=== PATIENT | female | born 1945 | race Caucasian/White ===

== ENCOUNTER 2018-06-02 17:31 | Emergency (ER) | END 2018-06-02 23:38 | disposition home or self-care (01) ==

== ENCOUNTER 2018-10-21 16:58 | Inpatient (IN) | payer MEDICARE, OTHER ==
[~2018-10-21] VITALS: Ht 165.1 cm; Wt 83.9 kg
[~2018-10-21 16:58] MED LIST: ACET-141 PO; BENA20TA4 PO; CHOL100062 PO; CYAN500T46 PO; DOCU-144 PO; LEVO25TA6 PO; LOPE-123 PO; MENT113O5 TP; METO-319 PO; NITR-58 PO; OMEP20CA16 PO; ONDA4TAB95 PO; ROSU10TA55 PO; SERT-165 PO; WARF5TAB PO
[2018-10-21] MEDS ORDERED: SOD CHLORIDE 0.9% 1,000 ML IV STA (17:12)
[2018-10-21] MEDS ORDERED: morphine 4 MG/ML VIAL IV STA (17:19)
[2018-10-21] MEDS ORDERED: ONDANSETRON 4 MG INJ IV STA (17:19)
[2018-10-21] MEDS ORDERED: WARF1TAB PO (18:02)
[2018-10-21] MEDS ORDERED: BENZ1LOZ52 MM (18:03)
[2018-10-21] MEDS ORDERED: CHOL200056 PO (18:04)
[2018-10-21] MEDS ORDERED: BENZ28CR TP (18:05)
--- NOTE | 2018-10-21 19:37 | ERD ---
ER Documentation Chief Complaint Chief Complaint GENITAL PAIN HPI 73-year-old female history of expressive a aphasia secondary to prior stroke. She presents with her daughter who provides the history. Patient has had several days of generalized abdominal discomfort that is nonspecific without associated nausea or vomiting. Slight associated looser stools. The patient also exhibits a rash around the genital area. She is also describing dental pain to the left posterior molar for several weeks if not longer. No fevers or chills have been noted. No chest pain, pleuritic pain or shortness of breath. ROS All systems reviewed and are negative except as per history of present illness. Medications Home Meds Reported Medications Benzocaine/Resorcinol (Anti-Itch Cream) 28 Gm Cream.gm., 28 GM TP DAILY 10/21/18 Cholecalciferol (Vitamin D3) (Vitamin D-3) 2,000 Unit Tablet, 2000 UNIT PO DAILY, TAB 10/21/18 Benzocaine/Menthol* (Cepacol* Sore Throat Lozenges) 1 Each Lozenge, 1 EACH MM TID PRN for SORE THROAT, LOZENGE 10/21/18 Warfarin Sodium* (Coumadin*) 1 Mg Tablet, 1 MG PO DAILY, TAB 10/21/18 Rosuvastatin Calcium* (Crestor*) 10 Mg Tablet, 10 MG PO QHS, #30 TAB 06/02/18 Omeprazole* (Omeprazole*) 20 Mg Capsule.dr, 20 MG PO AC BREAKFAST, #30 CAP 06/02/18 Metoprolol Succinate* (Toprol XL*) 50 Mg Tab.er.24h, 50 MG PO DAILY, #30 TAB 06/02/18 Levothyroxine Sodium* (Levothyroxine Sodium*) 25 Mcg Tablet, 25 MCG PO BEFORE BREAKFAST, #30 TAB 06/02/18 Benazepril Hcl* (Benazepril Hcl*) 20 Mg Tablet, 20 MG PO DAILY, #30 TAB 06/02/18 Loperamide Hcl* (Loperamide Hcl*) 2 Mg Cap, 2 MG PO DAILY PRN for DIARRHEA, CAP 06/02/18 Cyanocobalamin* (Vitamin B12*) 500 Mcg Tab, 1000 MCG PO DAILY, TAB 06/02/18 Sertraline Hcl* (Sertraline Hcl*) 100 Mg Tablet, 100 MG PO DAILY, #30 TAB 06/02/18 Acetaminophen* (Acetaminophen*) 500 MG Extra Strength Tablet, 500 MG PO Q8 PRN for PAIN AND OR ELEVATED TEMP, TAB 06/02/18 Ondansetron Hcl* (Ondansetron Hcl*) 4 Mg Tablet, 4 MG PO Q6H PRN for NAUSEA AND/OR VOMITING, TAB 06/02/18 Docusate Sodium* (Colace*) 100 Mg Capsule, 100 MG PO DAILY PRN for CONSTIPATION, #30 CAP 06/02/18 Menthol/Zinc Oxide (RISAMINE OINTMENT) 113 Gm Oint...g., 1 APPLIC TP DAILY 06/02/18 Discontinued Reported Medications Cholecalciferol* (Vitamin D3*) 1,000 Unit Tablet, 1000 UNIT PO DAILY, TAB 06/02/18 Warfarin Sodium* (Coumadin*) 5 Mg Tablet, 5 MG PO DAILY, TAB 06/02/18 Discontinued Scripts Nitrofurantoin Monohyd Macrocr* (Macrobid*) 100 Mg Capsr, 100 MG PO BID for 5 Days, CAP Prov:IRAIDAMALACHI DO 06/02/18 Allergies Allergies: Coded Allergies: No Known Allergy (Unverified , 10/21/18) PMhx/Soc History of Surgery: No Anesthesia Reaction: No Hx Neurological Disorder: Yes (CVA WITH RT SIDED DEFICIT) Hx Respiratory Disorders: No Hx Cardiac Disorders: Yes (HTN, A-FIB) Hx Psychiatric Problems: No Hx Miscellaneous Medical Probl: No Hx Alcohol Use: No Hx Substance Use: No Hx Tobacco Use: No Smoking Status: Never smoker FmHx Family History: No diabetes Physical Exam Vitals Vital Signs Date Temp Pulse Resp B/P (MAP) Pulse Ox O2 O2 Flow FiO2 Time Delivery Rate 10/21/18 97.8 79 18 121/63 99 17:54 (82) Physical Exam General: Well developed, well nourished, no acute distress Head: Normocephalic, atraumatic. Eyes: Pupils equally reactive, EOM intact ENT: Missing dentition bilaterally, a Is noted to the left posterior molar, inferior. There is small apical tenderness without evidence of focal abscess. Neck: Supple, no lymphadenopathy Respiratory: Lungs clear bilaterally, no distress Cardiovascular: RRR, no murmurs, rubs, or gallops Abdominal: Soft, non-tender, non-distended, no peritoneal signs : A rash that is erythematous with satellite lesions is noted in the skin spaces, grain grader exam MSK: No edema, no unilateral swelling Neurologic: Alert and oriented, no new deficits Skin: as above Psych: Normal mood Result Diagram: 10/21/18 1725 10/21/18 1725 Results 24 hrs Laboratory Tests Test 10/21/18 17:25 10/21/18 19:18 White Blood Count 10.3 10^3/ul Red Blood Count 5.02 10^6/ul Hemoglobin 14.7 g/dl Hematocrit 45.9 % Mean Corpuscular Volume 91.4 fl Mean Corpuscular Hemoglobin 29.3 pg Mean Corpuscular Hemoglobin Concent 32.0 g/dl Red Cell Distribution Width 12.8 % Platelet Count 241 10^3/UL Mean Platelet Volume 9.7 fl Immature Granulocytes % 0.200 % Neutrophils % 60.1 % Lymphocytes % 32.0 % Monocytes % 5.7 % Eosinophils % 1.7 % Basophils % 0.3 % Nucleated Red Blood Cells % 0.0 /100WBC Immature Granulocytes # 0.020 10^3/ul Neutrophils # 6.2 10^3/ul Lymphocytes # 3.3 10^3/ul Monocytes # 0.6 10^3/ul Eosinophils # 0.2 10^3/ul Basophils # 0.0 10^3/ul Nucleated Red Blood Cells # 0.0 10^3/ul Prothrombin Time 13.4 Sec Prothrombin Time Ratio 1.0 INR International Normalized Ratio 1.01 Activated Partial Thromboplast Time 24.7 Sec Sodium Level 147 mmol/L Potassium Level 3.7 mmol/L Chloride Level 105 mmol/L Carbon Dioxide Level 31 mmol/L Anion Gap 11 Blood Urea Nitrogen 19 mg/dl Creatinine 0.97 mg/dl Est Glomerular Filtrat Rate mL/min mL/min Glucose Level 96 mg/dl Calcium Level 9.7 mg/dl Total Bilirubin 0.1 mg/dl Direct Bilirubin 0.00 mg/dl Indirect Bilirubin 0.1 mg/dl Aspartate Amino Transf (AST/SGOT) 45 IU/L Alanine Aminotransferase (ALT/SGPT) 22 IU/L Alkaline Phosphatase 83 IU/L Total Protein 8.0 g/dl Albumin 3.9 g/dl Globulin 4.10 g/dl Albumin/Globulin Ratio 0.95 Lipase 111 U/L Urine Color YELLOW Urine Clarity CLOUDY Urine pH 6.0 Urine Specific [place] 1.019 Urine Ketones NEGATIVE mg/dL Urine Nitrite POSITIVE mg/dL Urine Bilirubin NEGATIVE mg/dL Urine Urobilinogen NEGATIVE mg/dL Urine Leukocyte Esterase 3+ Flip/ul Urine Microscopic RBC > 182 /HPF Urine Microscopic WBC > 182 /HPF Urine Bacteria MODERATE /HPF Urine Mucus FEW /HPF Urine Hemoglobin 2+ mg/dL Urine Glucose NEGATIVE mg/dL Urine Total Protein 1+ mg/dl Current Medications Medications Dose Sig/Leonel Start Time Status Last (Trade) Ordered Route PRN Stop Time Admin Dose Reason Admin Sodium 1,000 ml @ Q1H STAT 10/21/18 DC 10/21/18 Chloride 1,000 mls/hr IV 17:12 10/21/18 17:41 18:11 Morphine 4 mg ONCE STAT 10/21/18 DC 10/21/18 Sulfate IV 17:19 10/21/18 17:42 (morphine) 17:21 Ondansetron 4 mg ONCE STAT 10/21/18 DC 10/21/18 HCl (Zofran IV 17:19 10/21/18 17:41 Inj) 17:21 Ceftriaxone 50 ml @ ONCE ONCE 10/21/18 Sodium 100 mls/hr IVPB 20:00 10/21/18 20:29 Ondansetron 4 mg BRIDGE ORDER 10/21/18 HCl (Zofran PRN IV 20:30 Inj) NAUSEA AND/OR 10/22/18 20:29 VOMITING 650 mg ER BRIDGE 10/21/18 Acetaminophen PRN PO MILD 20:30 (Tylenol PAIN(1-3)OR 10/22/18 20:29 Tab) ELEVATED TEMP Procedures/MDM EKG, MONITORS, & DIAGNOSTIC IMAGING: CT a/p: IMPRESSION: There is inflammation of the right renal pelvis and UVJ secondary to multiple stones without hydronephrosis. There are multiple nonobstructing right upper pole renal calculi also present. There is bilateral mild renal atrophy slightly more pronounced on the right side. 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 There is a collapsed appearance of the colon without obstruction or visible focal inflammation. There is diverticulosis without diverticulitis. Atherosclerotic disease is present. Mosaic attenuation of the lower lungs is seen with faint ground-glass which could represent mild edema or pneumonitis. 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 RPTAT: AA LAB INTERPRETATION: * CBC reveals no evidence of infection with a normal white count without shift. Normal hemoglobin * The patient has a normal chemistry profile revealing no evidence of acute renal failure, no evidence of hepatobiliary obstruction * UA c/w UTI MEDICAL DECISION MAKING: The patient presents with nonspecific abdominal pain. Given her age and comorbidities CT imaging of the abdomen and pelvis will be appropriate. The patient additionally has a Saniya rash consistent with intertrigo that will benefit from topical clotrimazole. The patient additionally has a dental apical abscess and dental caries that warrants outpatient dental follow-up. ER COURSE: * The patient was given IV fluids and pain control medication. She remains hemodynamically stable * CT shows evidence of multiple large ureteral stones, no significant hydronephrosis. This could be the etiology of the patient's abdominal pain. She has no evidence of infection. The patient will likely require urologic intervention given the size of the stones but this can possibly be done on an outpatient basis if her pain is well controlled. Urinalysis pending. * Urinalysis shows evidence of UTI. Blood and urine cultures been sent. No evidence of Sirs or sepsis in the ER. Subtraction provided. Urology consulted. CONSULTATION: Dr. Denise, urology DISPOSITION PLAN: Medical surgical admission accepting care team and consultations: I discussed the current laboratory data, diagnostic imaging and emergency care provided. Admitting team: Dr. John Admitting team indication: Insurance directed Departure Diagnosis: Primary Impression: Ureteral stone Additional Impressions: Urinary tract infection Urinary tract infection type: site unspecified Hematuria presence: without hematuria Qualified Codes: N39.0 - Urinary tract infection, site not specified Vulvovaginal candidiasis Dental caries Condition: Stable BRITTANY RODRIGUEZ MD Oct 21, 2018 19:37
[2018-10-21] MEDS ORDERED: CEFTRIAXONE 1 GM/50 ML (PMX) 50 ML IVPB ONE (20:00)
[2018-10-21] MEDS ORDERED: ACETAMINOPHEN 325 MG TAB PO PRN ×2 (20:30→23:00)
[2018-10-21] MEDS ORDERED: ONDANSETRON 4 MG INJ IV PRN ×2 (20:30→23:00)
[2018-10-21] MEDS ORDERED: LOPERAMIDE 2 MG CAP PO PRN (23:00)
[2018-10-21] MEDS ORDERED: CEPASTAT LOZENGE MM PRN (23:00)
[2018-10-21] MEDS ORDERED: NACL 0.9% 3 ML SYG IV SCH (23:00)
[2018-10-21] MEDS ORDERED: DOCUSATE SODIUM 100 MG CAP PO PRN ×2 (23:00)
[2018-10-21] MEDS ORDERED: morphine 2 MG INJ IV PRN (23:00)
[2018-10-22 00:52] VITALS: BP 127/61; PULSE 69; RESP 17
[2018-10-22 01:08] VITALS: BMI 28.2
[2018-10-22] MEDS: SOD CHLORIDE 0.9% 1,000 ML IV SCH ×2 (01:42→13:21)
[2018-10-22 01:58] VITALS: BP 132/55; PULSE 77; RESP 17
[2018-10-22] MEDS ORDERED: PENDING SANTYL ORDER FOR WOUND CARE XX PRN (02:30)
[2018-10-22] MEDS: PANTOPRAZOLE (EC) 40 MG TAB PO SCH (06:41)
[2018-10-22] MEDS: LEVOTHYROXINE 25 MCG TAB PO SCH (06:41)
[2018-10-22] MEDS ORDERED: morphine SULFATE/PF (2 MG/2 ML) SYG IV PRN (06:57)
[2018-10-22 07:40] VITALS: BP 130/61; PULSE 75; RESP 18
[2018-10-22] MEDS: SERTRALINE 100 MG TAB PO SCH (08:44)
[2018-10-22] MEDS: METOPROLOL (XL) 50 MG TAB PO SCH (08:44)
[2018-10-22] MEDS: BENAZEPRIL 20 MG TAB PO SCH (08:44)
[2018-10-22] MEDS: CYANOCOBALAMIN 500 MCG TAB PO SCH (08:45)
[2018-10-22] MEDS: ENOXAPARIN 40 MG/0.4 ML SYG SC SCH (08:46)
--- NOTE | 2018-10-22 08:57 | CONS ---
Date/Time of Note Date/Time of Note DATE: 10/22/18 TIME: 08:29 Assessment/Plan Assessment/Plan Assessment/Plan 73-year-old female has a known history of stroke on 08/23/2011 resulting in right hemiplegia and expressive aphasia. She lives in an assisted living facility. He was brought to the emergency room because of right flank pain. She underwent a CT scan of the abdomen and pelvis and that showed: Urinary: There are is a 6 mm stone at the right renal pelvis and 7 mm stone directly distal to this at the UPJ and this results in wall thickening inflammation of the wall of the right renal pelvis and UPJ without hydronephrosis. There are several nonobstructing right upper pole renal calculi and the largest of these measures up to 9 mm in length. There is bilateral mild renal atrophy slightly more pronounced on the right side. No left-sided renal or ureteral stones are present. 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 A urological consultation was therefore requested. Since the patient has expressive aphasia from her stroke I called her daughter Kiana and she was very helpful in the history. The patient has been wheelchair-bound since she cannot walk or stand on her own. As she has been incontinent and managed with diapers. She can feed herself. She does have right hemiplegia. On the physical examination she has tenderness in the right flank area and the right upper quadrant area. Impression: Multiple right renal stones ranging from 6-9 mm in size. There is no hydronephrosis. She also may be infected and a urine culture has been sent. Plan: I will do a cystoscopy and insert a right ureteral JJ stent most likely tomorrow. And then at a later date do ureteroscopy and laser lithotripsy to the stone in the renal pelvis and upper ureter. I did discuss the treatment plan with her daughter and she is agreeable to proceed. I did discuss with her the benefits the risks and the possible complications as well especially that this patient has had a stroke and is on anticoagulation and the fact that she has multiple right renal stones. Result Diagram: 10/22/18 0549 10/22/18 0549 Results 24hrs Laboratory Tests Test 10/21/18 17:25 10/21/18 19:18 10/22/18 05:49 White Blood Count 10.3 8.3 Red Blood Count 5.02 4.40 Hemoglobin 14.7 12.8 Hematocrit 45.9 41.5 Mean Corpuscular Volume 91.4 94.3 Mean Corpuscular Hemoglobin 29.3 29.1 Mean Corpuscular Hemoglobin Concent 32.0 30.8 L Red Cell Distribution Width 12.8 13.2 Platelet Count 241 208 Mean Platelet Volume 9.7 10.1 Immature Granulocytes % 0.200 0.400 Neutrophils % 60.1 57.8 Lymphocytes % 32.0 31.5 Monocytes % 5.7 7.7 Eosinophils % 1.7 2.2 Basophils % 0.3 0.4 Nucleated Red Blood Cells % 0.0 0.0 Immature Granulocytes # 0.020 0.030 Neutrophils # 6.2 4.8 Lymphocytes # 3.3 H 2.6 Monocytes # 0.6 0.6 Eosinophils # 0.2 0.2 Basophils # 0.0 0.0 Nucleated Red Blood Cells # 0.0 0.0 Prothrombin Time 13.4 # Prothrombin Time Ratio 1.0 INR International Normalized Ratio 1.01 Activated Partial Thromboplast Time 24.7 Sodium Level 147 H 149 H Potassium Level 3.7 4.1 Chloride Level 105 113 H Carbon Dioxide Level 31 31 Anion Gap 11 5 Blood Urea Nitrogen 19 18 Creatinine 0.97 1.01 H Est Glomerular Filtrat Rate mL/min Glucose Level 96 88 Calcium Level 9.7 9.3 Total Bilirubin 0.1 L 0.0 L Direct Bilirubin 0.00 0.00 Indirect Bilirubin 0.1 0.0 Aspartate Amino Transf (AST/SGOT) 45 42 Alanine Aminotransferase (ALT/SGPT) 22 29 Alkaline Phosphatase 83 72 Total Protein 8.0 6.6 # Albumin 3.9 3.4 Globulin 4.10 H 3.20 Albumin/Globulin Ratio 0.95 1.06 Lipase 111 Urine Color YELLOW Urine Clarity CLOUDY A Urine pH 6.0 Urine Specific [place] 1.019 Urine Ketones NEGATIVE Urine Nitrite POSITIVE A Urine Bilirubin NEGATIVE Urine Urobilinogen NEGATIVE Urine Leukocyte Esterase 3+ H Urine Microscopic RBC > 182 H Urine Microscopic WBC > 182 H Urine Bacteria MODERATE Urine Mucus FEW A Urine Hemoglobin 2+ H Urine Glucose NEGATIVE Urine Total Protein 1+ H Hemoglobin A1c 5.3 Triglycerides Level 125 Cholesterol Level 112 LDL Cholesterol, Calculated 58 HDL Cholesterol 29 L Cholesterol/HDL Ratio 3.8 Thyroid Stimulating Hormone (TSH) Pending Consultation Date/Type/Reason Admit Date/Time Oct 21, 2018 at 20:20 Date of Consultation: Oct 22, 2018 Type of Consult Urology Reason for Consultation Right renal stones Requesting Provider: GRISEL SY MD Hx of Present Illness 73-year-old female has a known history of stroke on 08/23/2011 resulting in right hemiplegia and expressive aphasia. She lives in an assisted living facility. He was brought to the emergency room because of right flank pain. She underwent a CT scan of the abdomen and pelvis and that showed: Urinary: There are is a 6 mm stone at the right renal pelvis and 7 mm stone directly distal to this at the UPJ and this results in wall thickening inflamma tion of the wall of the right renal pelvis and UPJ without hydronephrosis. There are several nonobstructing right upper pole renal calculi and the largest of these measures up to 9 mm in length. There is bilateral mild renal atrophy slightly more pronounced on the right side. No left-sided renal or ureteral stones are present. 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 A urological consultation was therefore requested. Since the patient has expressive aphasia from her stroke I called her daughter Kiana and she was very helpful in the history. The patient has been wheelchair-bound since she cannot walk or stand on her own. As she has been incontinent and managed with diapers. She can feed herself. She does have right hemiplegia. Subjective hx not possible: other (Expressive aphasia) Eyes: no complaints ENT: no complaints Respiratory: no complaints Cardiovascular: other (History of atrial fibrillation has been on Coumadin) Gastrointestinal: no complaints Genitourinary: flank pain (Right side) Musculoskeletal: no complaints Skin: no complaints Neurologic: focal-weakness (Right hemiplegia) Endocrine: no complaints Lymphatic: no complaints Past Medical History Medical History: high cholesterol, hypertension, hypothyroid, urinary tract infection Medications Current Medications Sodium Chloride 1,000 ml @ 70 mls/hr [id number] IV Last administered on 10/22/18at 01:42; Admin Dose 70 MLS/HR; Start 10/21/18 at 22:41 IV Flush (NS 3 ml) 3 ml PER PROTOCOL IV ; Start 10/21/18 at 23:00 Ondansetron HCl (Zofran Inj) 4 mg Q6H PRN IV NAUSEA AND/OR VOMITING; Start 10/21/18 at 23:00 Acetaminophen (Tylenol Tab) 650 mg Q6H PRN PO PAIN LEVEL 1-3 OR FEVER; Start 10/21/18 at 23:00 Acetaminophen/ Hydrocodone Bitart ([place] (5/325)) 1 tab Q6H PRN PO MODERATE PAIN LEVEL 4-6; Start 10/21/18 at 23:00 Docusate Sodium (Colace) 100 mg Q12H PRN PO CONSTIPATION; Start 10/21/18 at 23:00 Pantoprazole (Protonix Tab) 40 mg DAILY@06 PO Last administered on 10/22/18at 06:41; Admin Dose 40 MG; Start 10/22/18 at 06:00 Enoxaparin Sodium (Lovenox) 40 mg DAILY SC ; Start 10/22/18 at 09:00 Ceftriaxone Sodium 50 ml @ 100 mls/hr Q24H IVPB ; Start 10/22/18 at 20:00 Benazepril HCl (Lotensin) 20 mg DAILY PO ; Start 10/22/18 at 09:00 Phenol (Cepastat Lozenge) 1 lozenge TID PRN MM SORE THROAT; Start 10/21/18 at 23:00 Cyanocobalamin (Vitamin B12) 1,000 mcg DAILY PO ; Start 10/22/18 at 09:00 Levothyroxine Sodium (Synthroid) 25 mcg BEFORE BREAKFAST PO Last administered on 10/22/18at 06:41; Admin Dose 25 MCG; Start 10/22/18 at 07:00 Loperamide HCl (Imodium Cap) 2 mg DAILY PRN PO DIARRHEA; Start 10/21/18 at 23:00 Metoprolol Succinate (Toprol Xl) 50 mg DAILY PO ; Start 10/22/18 at 09:00 Sertraline HCl (Zoloft) 100 mg DAILY PO ; Start 10/22/18 at 09:00 Miscellaneous Information (Pending [facility] Order For Wound Care) This patient renteria... PRN PRN XX NOTE; Start 10/22/18 at 02:30 Morphine Sulfate (morphine SULFATE (PF)) 2 mg Q4H PRN IV SEVERE PAIN LEVEL 7- 10; Start 10/22/18 at 06:57 Allergies: Coded Allergies: No Known Allergy (Unverified , 10/21/18) Past Surgical History Past Surgical Hx: other (History of coronary accident about 15 years ago and underwent surgery for neck fusion. History of hysterectomy.) Social History Alcohol Use: none Smoking Status: Never smoker Other Social History She is a 2 para 2 normal deliveries Exam/Review of Systems Vital Signs Vitals Vital Signs Date Temp Pulse Resp B/P (MAP) Pulse Ox O2 O2 Flow FiO2 Time Delivery Rate 10/22/18 98.2 75 18 130/61 92 Room Air 07:40 (84) Intake and Output 10/21/18 10/21/18 10/22/18 1515:00 23:00 07:00 IntakeIntake Total 280 ml BalanceBalance 280 ml Exam Constitutional: alert, other (Expressive aphasia) Psych: no complaints Head: normocephalic Eyes: nl conjunctiva ENMT: nl external ears & nose Neck: supple, non-tender Respiratory: normal air movement; No wheezing Cardiovascular: No jugular venous distention (JVD) Gastrointestinal: soft Genitourinary - Female: CVA tenderness (Right flank. No left flank tenderness. Pelvic exam: No mass and no discharge) Musculoskeletal: other (Right hemiplegia, very stiff right lower extremity) Extremities: other (Right hemiplegia, very stiff right lower extremity); No calf tenderness Neurological: confused (When she has a UTI) Medications Medications Current Medications Sodium Chloride 1,000 ml @ 70 mls/hr [id number] IV Last administered on 10/22/18at 01:42; Admin Dose 70 MLS/HR; Start 10/21/18 at 22:41 IV Flush (NS 3 ml) 3 ml PER PROTOCOL IV ; Start 10/21/18 at 23:00 Ondansetron HCl (Zofran Inj) 4 mg Q6H PRN IV NAUSEA AND/OR VOMITING; Start 10/21/18 at 23:00 Acetaminophen (Tylenol Tab) 650 mg Q6H PRN PO PAIN LEVEL 1-3 OR FEVER; Start 10/21/18 at 23:00 Acetaminophen/ Hydrocodone Bitart ([place] (5/325)) 1 tab Q6H PRN PO MODERATE PAIN LEVEL 4-6; Start 10/21/18 at 23:00 Docusate Sodium (Colace) 100 mg Q12H PRN PO CONSTIPATION; Start 10/21/18 at 23:00 Pantoprazole (Protonix Tab) 40 mg DAILY@06 PO Last administered on 10/22/18at 06:41; Admin Dose 40 MG; Start 10/22/18 at 06:00 Enoxaparin Sodium (Lovenox) 40 mg DAILY SC ; Start 10/22/18 at 09:00 Ceftriaxone Sodium 50 ml @ 100 mls/hr Q24H IVPB ; Start 10/22/18 at 20:00 Benazepril HCl (Lotensin) 20 mg DAILY PO ; Start 10/22/18 at 09:00 Phenol (Cepastat Lozenge) 1 lozenge TID PRN MM SORE THROAT; Start 10/21/18 at 23:00 Cyanocobalamin (Vitamin B12) 1,000 mcg DAILY PO ; Start 10/22/18 at 09:00 Levothyroxine Sodium (Synthroid) 25 mcg BEFORE BREAKFAST PO Last administered on 10/22/18at 06:41; Admin Dose 25 MCG; Start 10/22/18 at 07:00 Loperamide HCl (Imodium Cap) 2 mg DAILY PRN PO DIARRHEA; Start 10/21/18 at 23:00 Metoprolol Succinate (Toprol Xl) 50 mg DAILY PO ; Start 10/22/18 at 09:00 Sertraline HCl (Zoloft) 100 mg DAILY PO ; Start 10/22/18 at 09:00 Miscellaneous Information (Pending [facility] Order For Wound Care) This patient renteria... PRN PRN XX NOTE; Start 10/22/18 at 02:30 Morphine Sulfate (morphine SULFATE (PF)) 2 mg Q4H PRN IV SEVERE PAIN LEVEL 7- 10; Start 10/22/18 at 06:[address] scan of the abdomen and pelvis: There is inflammation of the right renal pelvis and UVJ secondary to multiple stones without hydronephrosis. There are multiple nonobstructing right upper pole renal calculi also present. There is bilateral mild renal atrophy slightly more pronounced on the right side. 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 There is a collapsed appearance of the colon without obstruction or visible focal inflammation. There is diverticulosis without diverticulitis. Atherosclerotic disease is present. Mosaic attenuation of the lower lungs is seen with faint ground-glass which could represent mild edema or pneumonitis. Bilateral L5 pars defects are present KUB showed that the stones in the right kidney are radiopaque. LOPEZ SON MD Oct 22, 2018 08:51
--- NOTE | 2018-10-22 09:40 | HP ---
DATE OF ADMISSION: 10/21/2018 REASON FOR ADMISSION: Urinary tract infection, nephrolithiasis. HISTORY OF PRESENT ILLNESS: Patient is a 73-year-old female with history of cerebrovascula r, right hemiplegia, expressive aphasia due to her stroke who presented to [facility] with her daughter as patient has generalized abdominal discomfort. Also, there is a port, a sligh tly looser stools. Also, she was noted to have a rash around the genital area. The patient was eval uated extensively in the emergency department. CBC was normal and urine revealed evidence of UTI wit h leukocyte esterase +3, and nitrates were positive. CT scan of the abdomen and pelvis was performed which showed there is inflammation of the right renal pelvis and UVJ secondary to multiple stone wit hout hydronephrosis. There are multiple nonobstructing right upper pole renal calculus also present. There is bilateral mild renal atrophy, slightly more pronounced on the right side. 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 There is collapse appearance of the colon without obstruction or visible focal inflammation. There is diverticulosis without diverticulitis. There i s atherosclerotic disease present. There is mosaic attenuation of the lower lung is seen with the ve in graft that which produces a mild edema or pneumonitis, bilateral L5 pars defects are present. Dr. Son, the urologist, was consulted and patient was started on antibiotic therapy with Rocephin. The patient was admitted to the medical/surgical floor for further care. Upon evaluation, the patien t did confirm having some abdominal discomfort. Otherwise, no other complaints. The patient does renteria ve expressive aphasia, so it is difficult to communicate with her. I did speak briefly with her renaldo cadenaer, her name is Kelsey, phone number area code [phone]. The patient is admitted for further c are. PAST MEDICAL HISTORY: Includes CVA. MEDICATIONS: 1. Warfarin 1 mg daily. 2. Benazepril 20 mg daily. 3. Toprol-XL 50 mg daily. 4. Crestor 10 mg at bedtime. 5. Tylenol p.r.n. 6. Sertraline 100 mg daily. 7. as directed. 8. Colace 100 daily p.r.n. 9. Loperamide p.r.n. 10. Omeprazole 20 mg daily. 11. Zofran p.r.n. 12. Synthroid 25 mcg daily. 13. Mental Zinc oxide ointment. 14. Vitamin D3 as directed. 15. Vitamin B12 as directed. PAST MEDICAL HISTORY: As mentioned, CVA, hypertension, dyslipidemia, expressive aphasia, hypothyroid ism. ALLERGIES: NO KNOWN DRUG ALLERGIES. SURGICAL HISTORY: Patient denies. SOCIAL HISTORY: The patient denies tobacco, alcohol or IV drug use, but overall patient is overall a poor historian due to the above stroke. The patient's daughter is Bette and the case briefly discu ssed. PHYSICAL EXAMINATION: VITAL SIGNS: Temperature 98.2, pulse 75, respiration 18, blood pressure 130/61, saturation 92 to 99% on room air. GENERAL: No acute distress. HEENT: Normocephalic, atraumatic. The patient is pale. CARDIOVASCULAR: S1 and S2, appears to be regular. LUNGS: Clear. ABDOMEN: Soft, slightly discomfort, more on the right side. EXTREMITIES: There is no clubbing, cyanosis, or edema. Right-sided weakness is noted mostly in the right upper extremity, which, +1 right lower extremity +2. LABORATORY DATA: White count is 8.3, hemoglobin 12.8, hematocrit 42, platelet count of 208, neutroph ils 58%, %. Chemistry: Sodium is 14.9, potassium 4.1, chloride 13, bicarbonate 31, BUN is 18, creatinine 1.01, glucose of 88. Hemoglobin A1c is 5.3, AST 42, ALT 29, alkaline phosphatase 72, alb umin 3.4, lipase 111. INR was 1.01. Urinalysis positive nitrites, +2 leukocyte esterase. KUB also done showed multiple right renal calculus and a CT scan also radiopaque on x-ray 1.9 cm calc ified lesion over the medial lower pole of the left kidney may represent a rim calcified cyst or aneu rysm of branch of the left renal artery. Continue further evaluation with CT angiogram. The patient 's chest x-ray shows negative for evidence of acute chest process. EKG: I currently do not see one. Will order one. ASSESSMENT AND PLAN: This is a 73-year-old female with history of cerebrovascular, right he miplegia, hypertension, dyslipidemia, hypothyroidism who presented with abdominal pain, was found to have urinary tract infection and right-sided kidney stones. 1. Urinary tract infection. The patient was started on Rocephin. Follow up urine culture result, p robably right-sided stone is the nidus of the infection. We will follow. 2. Right-sided renal stone. Urology was consulted. May need to have a J-stent placement and lithot ripsy in the future. We will discuss with Dr. Son. 3. Cerebrovascular accident. Supportive care, control risk factors. Aspiration precautions. 4. Questionable history of atrial fibrillation as patient has been on Coumadin, but INR is subtherap eutic. We will consult cardiology for further recommendation. May consider switching this to Eliqui s. We will obtain an EKG. May consider echocardiogram. 5. The patient to be placed on deep vein thrombosis prophylaxis and gastrointestinal prophylaxis. 6. Hypothyroidism. Continue Synthroid. Follow up TSH levels. 7. Depression. The patient is on Zoloft. 8. Continue supportive care. 9. Case discussed with the daughter and will keep her informed throughout the patient's hospitalizat ion. We will follow closely. Dictated By: GRISEL DURANT/IMELDA Conf#: [id number] DID#: [id number] CC: LOPEZ SON MD;*[facility]*
--- NOTE | 2018-10-22 09:57 | CONS ---
Date/Time of Note Date/Time of Note DATE: 10/22/18 TIME: 09:49 Assessment/Plan Assessment/Plan Hospital Course 1. Nephrolithiasis 2. History of CVA 3. History of possible proximal atrial fibrillation although details not clear 4. Hypertension controlled 5. Rule out dyslipidemia 6. Aphasia 7. Cardia vascular preop evaluation for urological procedure 8. Hypothyroidism Recommendation: Continue with the Toprol. Patient's INR was subtherapeutic at 1 on admission. Will consider switching to another agent such as Eliquis or Xarelto after urological procedure is finished. Echocardiogram will be checked as well to eval for LV function. Aggressive risk factor modification including repeat management is recommended. Thyroid supplement to be continued. Patient is currently stable with low risk of cardiovascular event for the urological procedure/stenting and no further cardiac workup would be indicated. Thank you for his referral. We will continue to follow along with you. DIETER DE LEON MD [facility] Result Diagram: 10/22/18 0549 10/22/18 0549 Results 24hrs Laboratory Tests Test 10/21/18 17:25 10/21/18 19:18 10/22/18 05:49 White Blood Count 10.3 8.3 Red Blood Count 5.02 4.40 Hemoglobin 14.7 12.8 Hematocrit 45.9 41.5 Mean Corpuscular Volume 91.4 94.3 Mean Corpuscular Hemoglobin 29.3 29.1 Mean Corpuscular Hemoglobin Concent 32.0 30.8 L Red Cell Distribution Width 12.8 13.2 Platelet Count 241 208 Mean Platelet Volume 9.7 10.1 Immature Granulocytes % 0.200 0.400 Neutrophils % 60.1 57.8 Lymphocytes % 32.0 31.5 Monocytes % 5.7 7.7 Eosinophils % 1.7 2.2 Basophils % 0.3 0.4 Nucleated Red Blood Cells % 0.0 0.0 Immature Granulocytes # 0.020 0.030 Neutrophils # 6.2 4.8 Lymphocytes # 3.3 H 2.6 Monocytes # 0.6 0.6 Eosinophils # 0.2 0.2 Basophils # 0.0 0.0 Nucleated Red Blood Cells # 0.0 0.0 Prothrombin Time 13.4 # Prothrombin Time Ratio 1.0 INR International Normalized Ratio 1.01 Activated Partial Thromboplast Time 24.7 Sodium Level 147 H 149 H Potassium Level 3.7 4.1 Chloride Level 105 113 H Carbon Dioxide Level 31 31 Anion Gap 11 5 Blood Urea Nitrogen 19 18 Creatinine 0.97 1.01 H Est Glomerular Filtrat Rate mL/min Glucose Level 96 88 Calcium Level 9.7 9.3 Total Bilirubin 0.1 L 0.0 L Direct Bilirubin 0.00 0.00 Indirect Bilirubin 0.1 0.0 Aspartate Amino Transf (AST/SGOT) 45 42 Alanine Aminotransferase (ALT/SGPT) 22 29 Alkaline Phosphatase 83 72 Total Protein 8.0 6.6 # Albumin 3.9 3.4 Globulin 4.10 H 3.20 Albumin/Globulin Ratio 0.95 1.06 Lipase 111 Urine Color YELLOW Urine Clarity CLOUDY A Urine pH 6.0 Urine Specific Shafter 1.019 Urine Ketones NEGATIVE Urine Nitrite POSITIVE A Urine Bilirubin NEGATIVE Urine Urobilinogen NEGATIVE Urine Leukocyte Esterase 3+ H Urine Microscopic RBC > 182 H Urine Microscopic WBC > 182 H Urine Bacteria MODERATE Urine Mucus FEW A Urine Hemoglobin 2+ H Urine Glucose NEGATIVE Urine Total Protein 1+ H Hemoglobin A1c 5.3 Triglycerides Level 125 Cholesterol Level 112 LDL Cholesterol, Calculated 58 HDL Cholesterol 29 L Cholesterol/HDL Ratio 3.8 Thyroid Stimulating Hormone (TSH) 1.980 Consultation Date/Type/Reason Admit Date/Time Oct 21, 2018 at 20:20 Date of Consultation: Oct 22, 2018 Type of Consult CV Reason for Consultation CV Preop evaluation. CVA Requesting Provider: DEBBI SY MD Hx of Present Illness Interventional cardiology consultation Chief complaint: Abdominal pain nephrolithiasis Reason for consult: History of CVA on anticoagulation. Possible proximal atrial fibrillation HISTORY OF PRESENT ILLNESS: Thank you for his referral. History was obtained from the discussion with the staff and multiple physicians. From review of the chart. Patient herself is not able to verbalize any history to me due to her aphasia. I have called the daughter but have not been able to speak to her yet. Patient is a 73-year-old female with history of cerebrovascular, right hemiplegia, expressive aphasia due to her stroke who presented to [facility] with her daughter as patient has generalized abdominal discomfort. . Also, she was noted to have a rash around the genital area. The patient was evaluated extensively in the emergency department. CBC was normal and urine revealed evidence of UTI with leukocyte esterase +3, and nitrates were positive. CT scan of the abdomen and pelvis was performed which showed there is inflammation of the right renal pelvis and UVJ secondary to multiple stone without hydronephrosis. There are multiple nonobstructing right upper pole renal calculus also present. There is bilateral mild renal atrophy, slightly more pronounced on the right side. The patient is being evaluated by urology for possible urological procedure/stenting. MEDICATIONS: 1. Warfarin 1 mg daily. 2. Benazepril 20 mg daily. 3. Toprol-XL 50 mg daily. 4. Crestor 10 mg at bedtime. 5. Tylenol p.r.n. 6. Sertraline 100 mg daily. 7. Colace 100 daily p.r.n. 9. Loperamide p.r.n. 10. Omeprazole 20 mg daily. 11. Zofran p.r.n. 12. Synthroid 25 mcg daily. 13. Mental Zinc oxide ointment. 14. Vitamin D3 as directed. 15. Vitamin B12 as directed. PAST MEDICAL HISTORY: As mentioned, CVA, hypertension, dyslipidemia, expressive aphasia, hypothyroidism. ALLERGIES: NO KNOWN DRUG ALLERGIES. SURGICAL HISTORY: Patient denies. SOCIAL HISTORY: The patient denies tobacco, alcohol or IV drug use, but overall patient is overall a poor historian due to the above stroke. The patient's daughter is Bette and the case briefly discussed. Review of system as above only best I could obtain. Past Medical History Medical History: high cholesterol, hypertension, hypothyroid, urinary tract infection Medications Current Medications Sodium Chloride 1,000 ml @ 70 mls/hr [id number] IV Last administered on 10/22/18at 01:42; Admin Dose 70 MLS/HR; Start 10/21/18 at 22:41 IV Flush (NS 3 ml) 3 ml PER PROTOCOL IV ; Start 10/21/18 at 23:00 Ondansetron HCl (Zofran Inj) 4 mg Q6H PRN IV NAUSEA AND/OR VOMITING; Start 10/21/18 at 23:00 Acetaminophen (Tylenol Tab) 650 mg Q6H PRN PO PAIN LEVEL 1-3 OR FEVER; Start 10/21/18 at 23:00 Acetaminophen/ Hydrocodone Bitart ([place] (5/325)) 1 tab Q6H PRN PO MODERATE PAIN LEVEL 4-6; Start 10/21/18 at 23:00 Docusate Sodium (Colace) 100 mg Q12H PRN PO CONSTIPATION; Start 10/21/18 at 23:00 Pantoprazole (Protonix Tab) 40 mg DAILY@06 PO Last administered on 10/22/18at 06:41; Admin Dose 40 MG; Start 10/22/18 at 06:00 Enoxaparin Sodium (Lovenox) 40 mg DAILY SC Last administered on 10/22/18at 08:46; Admin Dose 40 MG; Start 10/22/18 at 09:00 Ceftriaxone Sodium 50 ml @ 100 mls/hr Q24H IVPB ; Start 10/22/18 at 20:00 Benazepril HCl (Lotensin) 20 mg DAILY PO Last administered on 10/22/18at 08:44; Admin Dose 20 MG; Start 10/22/18 at 09:00 Phenol (Cepastat Lozenge) 1 lozenge TID PRN MM SORE THROAT; Start 10/21/18 at 23:00 Cyanocobalamin (Vitamin B12) 1,000 mcg DAILY PO Last administered on 10/22/18at 08:45; Admin Dose 1,000 MCG; Start 10/22/18 at 09:00 Levothyroxine Sodium (Synthroid) 25 mcg BEFORE BREAKFAST PO Last administered on 10/22/18at 06:41; Admin Dose 25 MCG; Start 10/22/18 at 07:00 Loperamide HCl (Imodium Cap) 2 mg DAILY PRN PO DIARRHEA; Start 10/21/18 at 23:00 Metoprolol Succinate (Toprol Xl) 50 mg DAILY PO Last administered on 10/22/18at 08:44; Admin Dose 50 MG; Start 10/22/18 at 09:00 Sertraline HCl (Zoloft) 100 mg DAILY PO Last administered on 10/22/18at 08:44; Admin Dose 100 MG; Start 10/22/18 at 09:00 Miscellaneous Information (Pending Santyl Order For Wound Care) This patient renteria... PRN PRN XX NOTE; Start 10/22/18 at 02:30 Morphine Sulfate (morphine SULFATE (PF)) 2 mg Q4H PRN IV SEVERE PAIN LEVEL 7- 10; Start 10/22/18 at 06:57 Clotrimazole (Lotrimin Cr) 1 applic BID TOP ; Start 10/22/18 at 10:30 Allergies: Coded Allergies: No Known Allergy (Unverified , 10/21/18) Past Surgical History Past Surgical Hx: other (History of coronary accident about 15 years ago and underwent surgery for neck fusion. History of hysterectomy.) Social History Alcohol Use: none Smoking Status: Never smoker Exam/Review of Systems Vital Signs Vitals Vital Signs Date Temp Pulse Resp B/P (MAP) Pulse Ox O2 O2 Flow FiO2 Time Delivery Rate 10/22/18 98.2 75 18 130/61 92 Room Air 07:40 (84) Intake and Output 10/21/18 10/21/18 10/22/18 1515:00 23:00 07:00 IntakeIntake Total 280 ml BalanceBalance 280 ml Exam General: no acute distress HEENT: NC/AT. pupils are equal. round. NECK: NO JVD. no stridor. CV: RRR. systolic murmur; no gallop or rubs. PULM: no wheezing or rhonchi. GI: SOFT, NT, ND, no rebound or guarding Extremity: trace B/L LE edema. no clubbing. neuro: awake and verbal but has expressive aphasia and is noncoherent Psych: calm and pleasant rectal: deferred EKG was personally reviewed within normal sinus rhythm with PACs CT of the abdomen shows: There is inflammation of the right renal pelvis and UVJ secondary to multiple stones without hydronephrosis. There are multiple nonobstructing right upper pole renal calculi also present. There is bilateral mild renal atrophy slightly more pronounced on the right side. 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 There is a collapsed appearance of the colon without obstruction or visible focal inflammation. There is diverticulosis without diverticulitis. Atherosclerotic disease is present. Mosaic attenuation of the lower lungs is seen with faint ground-glass which could represent mild edema or pneumonitis. 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 Medications Medications Current Medications Sodium Chloride 1,000 ml @ 70 mls/hr [id number] IV Last administered on 10/22/18at 01:42; Admin Dose 70 MLS/HR; Start 10/21/18 at 22:41 IV Flush (NS 3 ml) 3 ml PER PROTOCOL IV ; Start 10/21/18 at 23:00 Ondansetron HCl (Zofran Inj) 4 mg Q6H PRN IV NAUSEA AND/OR VOMITING; Start 10/21/18 at 23:00 Acetaminophen (Tylenol Tab) 650 mg Q6H PRN PO PAIN LEVEL 1-3 OR FEVER; Start 10/21/18 at 23:00 Acetaminophen/ Hydrocodone Bitart ([place] (5/325)) 1 tab Q6H PRN PO MODERATE PAIN LEVEL 4-6; Start 10/21/18 at 23:00 Docusate Sodium (Colace) 100 mg Q12H PRN PO CONSTIPATION; Start 10/21/18 at 23:00 Pantoprazole (Protonix Tab) 40 mg DAILY@06 PO Last administered on 10/22/18at 06:41; Admin Dose 40 MG; Start 10/22/18 at 06:00 Enoxaparin Sodium (Lovenox) 40 mg DAILY SC Last administered on 10/22/18at 08:46; Admin Dose 40 MG; Start 10/22/18 at 09:00 Ceftriaxone Sodium 50 ml @ 100 mls/hr Q24H IVPB ; Start 10/22/18 at 20:00 Benazepril HCl (Lotensin) 20 mg DAILY PO Last administered on 10/22/18at 08:44; Admin Dose 20 MG; Start 10/22/18 at 09:00 Phenol (Cepastat Lozenge) 1 lozenge TID PRN MM SORE THROAT; Start 10/21/18 at 23:00 Cyanocobalamin (Vitamin B12) 1,000 mcg DAILY PO Last administered on 10/22/18at 08:45; Admin Dose 1,000 MCG; Start 10/22/18 at 09:00 Levothyroxine Sodium (Synthroid) 25 mcg BEFORE BREAKFAST PO Last administered on 10/22/18at 06:41; Admin Dose 25 MCG; Start 10/22/18 at 07:00 Loperamide HCl (Imodium Cap) 2 mg DAILY PRN PO DIARRHEA; Start 10/21/18 at 23:00 Metoprolol Succinate (Toprol Xl) 50 mg DAILY PO Last administered on 10/22/18 08:44; Admin Dose 50 MG; Start 10/22/18 at 09:00 Sertraline HCl (Zoloft) 100 mg DAILY PO Last administered on 10/22/18 08:44; Admin Dose 100 MG; Start 10/22/18 at 09:00 Miscellaneous Information (Pending [facility] Order For Wound Care) This patient renteria... PRN PRN XX NOTE; Start 10/22/18 at 02:30 Morphine Sulfate (morphine SULFATE (PF)) 2 mg Q4H PRN IV SEVERE PAIN LEVEL 7- 10; Start 10/22/18 at 06:57 Clotrimazole (Lotrimin Cr) 1 applic BID TOP ; Start 10/22/18 at 10:30 DEITER DE LEON MD Oct 22, 2018 09:57
[2018-10-22] MEDS: CLOTRIMAZOLE 1% 30 GM CR TOP SCH ×2 (13:22→22:07)
[2018-10-22 14:45] VITALS: BP 118/74; PULSE 77; RESP 16
[2018-10-22] MEDS ORDERED: VANCOMYCIN 1 GM (PMX) 250 ML IVPB ONE (18:30)
[2018-10-22] MEDS ORDERED: VANCOMYCIN IV PER PHARMACY XX SCH ×2 (18:30→21:30)
[2018-10-22 18:32] VITALS: Ht 165.1 cm; Wt 83.9 kg
[2018-10-22] MEDS ORDERED: VANCOMYCIN HCL 1.5 GM in SOD CHLORIDE 0.9% 250 ML IVPB SCH (19:30)
[2018-10-22] MEDS: CEFTRIAXONE 1 GM/50 ML (PMX) 50 ML IVPB SCH (19:59)
[2018-10-22 21:01] VITALS: BP 143/59; PULSE 82; RESP 16
[2018-10-23] VITALS (19 sets, daily range): BP systolic 97–159; BP diastolic 48–74; PULSE 72–87; RESP 10–19
[2018-10-23] MEDS: morphine LIQ (10 MG/5 ML) CUP PO PRN ×2 (02:39→08:21)
[2018-10-23] MEDS: SOD CHLORIDE 0.9% 1,000 ML IV SCH ×2 (03:17→12:01)
[2018-10-23] MEDS: PANTOPRAZOLE (EC) 40 MG TAB PO SCH (05:29)
[2018-10-23] MEDS: LEVOTHYROXINE 25 MCG TAB PO SCH (07:00)
[2018-10-23] MEDS: BENAZEPRIL 20 MG TAB PO SCH (08:24)
[2018-10-23] MEDS: CYANOCOBALAMIN 500 MCG TAB PO SCH (08:24)
[2018-10-23] MEDS: METOPROLOL (XL) 50 MG TAB PO SCH (08:24)
[2018-10-23] MEDS: SERTRALINE 100 MG TAB PO SCH (08:25)
[2018-10-23] MEDS: CLOTRIMAZOLE 1% 30 GM CR TOP SCH ×2 (08:25→20:50)
[2018-10-23] MEDS: ENOXAPARIN 40 MG/0.4 ML SYG SC SCH (08:26)
--- NOTE | 2018-10-23 11:45 | CONS ---
DATE OF ADMISSION: 10/21/2018 DATE OF CONSULTATION: 10/22/2018 Infectious Disease Consultation. REASON FOR CONSULTATION: Antibiotic management. HISTORY OF PRESENT ILLNESS: Aliza Aguilar is a 73-year-old female patient of Dr. Sy who comes i n with urinary tract infection and nephrolithiasis. Past problems include: 1. Cerebrovascular accident with right hemiplegia and expressive aphasia. [facility] discomfort. She also has a port. She was noted to have a rash around her genital area and to have loose stools. Her CBC was 8.3, hemoglobin 12.8, hematocrit 42, platelet count 208,000. BUN and creatinine 18/1.01. Urinalysis was positive for nitrites and 2+ steve kocyte esterase. It showed evidence of UTI. CT scan of the abdomen and pelvis was performed and janice wed inflammation of the right renal pelvis and UVJ secondary to multiple stones without hydronephrosi s. She has multiple nonobstructing right upper pole renal calculi. There is bilateral mild renal at rophy, more pronounced on the right side. She has diverticulosis without diverticulitis. Dr. Zak day, the urologist, was consulted and patient was started on Rocephin. PAST MEDICAL HISTORY: As outlined. PAST SURGICAL HISTORY: None. FAMILY HISTORY: Noncontributory. SOCIAL HISTORY: She denies tobacco, alcohol or IV drug use. IMPRESSION AND PLAN: The patient is overall a poor historian due to her stroke. Her daughter was pr esent in the emergency room. Currently, her white count is 9.3. MICROBIOLOGY: Her blood cultures are positive for staph species. Urine is positive for, Escherichia coli. The E.coli is sensitive to cefotaxime and to Bactrim, resistant to Cipro. Staph species yet to be identified. Abdominal x-ray shows multiple renal calculi seen on the CT scan. PHYSICAL EXAMINATION: GENERAL: The patient is an elderly appearing female who is essentially nonverbal. VITAL SIGNS: Stable. She is afebrile. SKIN: Without generalized rash. HEENT: Within normal limits. NECK: Supple. LYMPH NODES: None palpable. CHEST: Decreased breath sounds at the bases. HEART: Without murmur or gallop. ABDOMEN: Soft, nontender, without organosplenomegaly or masses. EXTREMITIES: Without cyanosis, clubbing, or edema. Right-sided weakness mostly in the right upper e xtremity. RECTAL AND GENITAL: Deferred. NEUROLOGIC: As outlined. ASSESSMENT AND PLAN: The patient is a 73-year-old female with history of CVA, right hemiplegia, hype rtension, hypothyroidism, dyslipidemia who found to have a urinary tract infection and right-sided k idney stones. She was started on Rocephin. She may need a J stent placement and lithotripsy in the future. This will be decided by Dr. Son. I will dictate my findings to Dr. Sy. Will continu e the patient currently on vancomycin and ceftriaxone. I want to thank Dr. Sy for asking us to se e this rebecca lady in consultation. Dictated By: MIRA TILLMAN MD, JD/NTS Conf#: [id number] DID#: [id number] CC: GRISEL SY MD; LOPEZ SON MD;*End*
[2018-10-23] MEDS ORDERED: HYDROmorphONE 0.5 MG/0.5 ML SYG IV STA (12:24)
--- NOTE | 2018-10-23 12:40 | PREAC ---
Date/Time of Note Date/Time of Note DATE: 10/23/18 TIME: 12:37 Anesthesia Eval and Record Evaluation Time Pre-Procedure Interview DATE: 10/23/18 TIME: 12:37 Age 73 Sex female NPO: 8 hrs Preoperative diagnosis right flank pain Planned procedure cystoscopy and insert a right ureteral JJ stent Past Medical History Past Medical History: Includes Cardio: HTN, Dyslipidemia, Arrythmia (A-Fib) Endo: Hypothyroid Neuro: CVA (right hemiplegia, expressive aphasia) GI: Obesity Surgery & Anesthesia Issues No known issue Meds Anticoagulation: No Beta Bonny within 24 hr: No Reason Beta Bonny not given: Pt. not on B-Bonny (AM meds held) Reported Medications Benzocaine/Resorcinol (Anti-Itch Cream) 28 Gm Cream.gm., 28 GM TP DAILY 10/21/18 Cholecalciferol (Vitamin D3) (Vitamin D-3) 2,000 Unit Tablet, 2000 UNIT PO DAILY, TAB 10/21/18 Benzocaine/Menthol* (Cepacol* Sore Throat Lozenges) 1 Each Lozenge, 1 EACH MM TID PRN for SORE THROAT, LOZENGE 10/21/18 Warfarin Sodium* (Coumadin*) 1 Mg Tablet, 1 MG PO DAILY, TAB 10/21/18 Rosuvastatin Calcium* (Crestor*) 10 Mg Tablet, 10 MG PO QHS, #30 TAB 06/02/18 Omeprazole* (Omeprazole*) 20 Mg Capsule.dr, 20 MG PO AC BREAKFAST, #30 CAP 06/02/18 Metoprolol Succinate* (Toprol XL*) 50 Mg Tab.er.24h, 50 MG PO DAILY, #30 TAB 06/02/18 Levothyroxine Sodium* (Levothyroxine Sodium*) 25 Mcg Tablet, 25 MCG PO BEFORE BREAKFAST, #30 TAB 06/02/18 Benazepril Hcl* (Benazepril Hcl*) 20 Mg Tablet, 20 MG PO DAILY, #30 TAB 06/02/18 Loperamide Hcl* (Loperamide Hcl*) 2 Mg Cap, 2 MG PO DAILY PRN for DIARRHEA, CAP 06/02/18 Cyanocobalamin* (Vitamin B12*) 500 Mcg Tab, 1000 MCG PO DAILY, TAB 06/02/18 Sertraline Hcl* (Sertraline Hcl*) 100 Mg Tablet, 100 MG PO DAILY, #30 TAB 06/02/18 Acetaminophen* (Acetaminophen*) 500 MG Extra Strength Tablet, 500 MG PO Q8 PRN for PAIN AND OR ELEVATED TEMP, TAB 06/02/18 Ondansetron Hcl* (Ondansetron Hcl*) 4 Mg Tablet, 4 MG PO Q6H PRN for NAUSEA AND/OR VOMITING, TAB 06/02/18 Docusate Sodium* (Colace*) 100 Mg Capsule, 100 MG PO DAILY PRN for CONSTIPATION, #30 CAP 06/02/18 Menthol/Zinc Oxide (RISAMINE OINTMENT) 113 Gm Oint...g., 1 APPLIC TP DAILY 06/02/18 Discontinued Reported Medications Cholecalciferol* (Vitamin D3*) 1,000 Unit Tablet, 1000 UNIT PO DAILY, TAB 06/02/18 Warfarin Sodium* (Coumadin*) 5 Mg Tablet, 5 MG PO DAILY, TAB 06/02/18 Discontinued Scripts Nitrofurantoin Monohyd Macrocr* (Macrobid*) 100 Mg Capsr, 100 MG PO BID for 5 Days, CAP Prov:MALACHI KHOURY DO 06/02/18 Current Medications Sodium Chloride 1,000 ml @ 70 mls/hr [id number] IV Last administered on 10/23/18at 12:01; Admin Dose 70 MLS/HR; Start 10/21/18 at 22:41 IV Flush (NS 3 ml) 3 ml PER PROTOCOL IV ; Start 10/21/18 at 23:00 Ondansetron HCl (Zofran Inj) 4 mg Q6H PRN IV NAUSEA AND/OR VOMITING; Start 10/21/18 at 23:00 Acetaminophen (Tylenol Tab) 650 mg Q6H PRN PO PAIN LEVEL 1-3 OR FEVER; Start 10/21/18 at 23:00 Acetaminophen/ Hydrocodone Bitart ([place] (5/325)) 1 tab Q6H PRN PO MODERATE PAIN LEVEL 4-6; Start 10/21/18 at 23:00 Docusate Sodium (Colace) 100 mg Q12H PRN PO CONSTIPATION; Start 10/21/18 at 23:00 Pantoprazole (Protonix Tab) 40 mg DAILY@06 PO Last administered on 10/22/18at 06:41; Admin Dose 40 MG; Start 10/22/18 at 06:00 Ceftriaxone Sodium 50 ml @ 100 mls/hr Q24H IVPB Last administered on 10/22/18 19:59; Admin Dose 100 MLS/HR; Start 10/22/18 at 20:00 Benazepril HCl (Lotensin) 20 mg DAILY PO Last administered on 10/22/18at 08:44; Admin Dose 20 MG; Start 10/22/18 at 09:00 Phenol (Cepastat Lozenge) 1 lozenge TID PRN MM SORE THROAT; Start 10/21/18 at 23:00 Cyanocobalamin (Vitamin B12) 1,000 mcg DAILY PO Last administered on 10/22/18 08:45; Admin Dose 1,000 MCG; Start 10/22/18 at 09:00 Levothyroxine Sodium (Synthroid) 25 mcg BEFORE BREAKFAST PO Last administered on 10/22/18 06:41; Admin Dose 25 MCG; Start 10/22/18 at 07:00 Loperamide HCl (Imodium Cap) 2 mg DAILY PRN PO DIARRHEA; Start 10/21/18 at 23:00 Metoprolol Succinate (Toprol Xl) 50 mg DAILY PO Last administered on 10/22/18at 08:44; Admin Dose 50 MG; Start 10/22/18 at 09:00 Sertraline HCl (Zoloft) 100 mg DAILY PO Last administered on 10/22/18 08:44; Admin Dose 100 MG; Start 10/22/18 at 09:00 Miscellaneous Information (Pending [facility] Order For Wound Care) This patient renteria... PRN PRN XX NOTE; Start 10/22/18 at 02:30 Clotrimazole (Lotrimin Cr) 1 applic BID TOP Last administered on 10/23/18at 08:25; Admin Dose 1 APPLIC; Start 10/22/18 at 10:30 Vancomycin HCl (Vanco Iv Per Pharmacy) VANCOMYCIN PER PHARMACY PER PROTOCOL XX ; Start 10/22/18 at 18:30 Vancomycin HCl 1.25 gm/Sodium Chloride 250 ml @ 83.333 mls/ hr Q24H IVPB ; Start 10/23/18 at 18:00 Morphine Sulfate (morphine) 6 mg Q4H PRN PO SEVERE PAIN LEVEL 7-10 Last administered on 10/23/18at 08:21; Admin Dose 6 MG; Start 10/22/18 at 22:30 Enoxaparin Sodium (Lovenox) 40 mg DAILY SC ; Start 10/24/18 at 09:00 Meds reviewed: Yes Allergies Coded Allergies: No Known Allergy (Unverified , 10/21/18) Allergies Reviewed: Yes Labs/Studies Labs Reviewed: Reviewed by anesthesiologist Result Diagram: 10/23/18 0556 10/23/18 0556 Laboratory Tests 10/23/18 05:56 test: N/A Studies: ECG (SR), CXR (Negative for evidence of an acute chest process. ) Pre-procedure Exam Last vitals Vital Signs Date Temp Pulse Resp B/P (MAP) Pulse Ox O2 O2 Flow FiO2 Time Delivery Rate 10/23/18 97.4 81 18 134/59 90 Room Air 09:37 (84) Airway: Adequate mouth opening Mallampati: Mallampati II Teeth: Normal Lung: Normal Heart: Normal ASA Physical Status ASA physical status: 3 Emergency: None Planned Anesthetic General/MAC: ETT Pre-operative Attestations Prior to commencing anesthesia and surgery, the patient was re-evaluated, there was verification of: *The patient's identity *The results of appropriate recent lab work and preoperative vital signs *The above evaluation not changing prior to induction *Anesthetic plan, risk benefits, alternative and complications discussed with patient/family; questions answered; patient/family understands, accepts and wishes to proceed. ROBERTO VÁZQUEZ Oct 23, 2018 12:40
--- NOTE | 2018-10-23 13:05 | HPN ---
Date/Time of Note Date/Time of Note DATE: 10/23/18 TIME: 13:04 Interval H&P Admission Note Pt. seen H&P reviewed: No system changes I discussed the procedure with the patient and with her daughter Kiana who was at her bedside. Discussed that we need to do staged procedures and may be multiple procedures to remove the stones. They understood and are agreeable to proceed. I answered all their questions. LOPEZ SON MD Oct 23, 2018 13:05
[2018-10-23] MEDS ORDERED: PROPOFOL 20 ML ONE (13:19)
[2018-10-23] MEDS ORDERED: FENTAnyl 50 MCG/ML VIAL ONE (13:19)
[2018-10-23] MEDS ORDERED: ONDANSETRON 4 MG INJ ONE (13:20)
[2018-10-23] MEDS ORDERED: METOCLOPRAMIDE 10 MG INJ ONE (13:22)
--- NOTE | 2018-10-23 14:11 | PN ---
DATE: 10/23/2018 SUBJECTIVE: I appreciate Dr. Denise and Dr. Flores's input. The patient is undergoing stent placem ent due to multiple stones in the right tract. PHYSICAL EXAMINATION: VITAL SIGNS: Temperature 97.4, pulse 81, respirations 18, blood pressure 124/59, saturation 90% to 9 5%. GENERAL: In no acute distress. HEENT: The patient is pale. CARDIOVASCULAR: S1, S2. Regular rate and rhythm. LUNGS: Clear. ABDOMEN: Soft, nontender. EXTREMITIES: Right-sided weakness. LABORATORY DATA: White count is 9.3, hemoglobin 12, hematocrit 39, platelet count 126 with normal di fferential. Chemistry: Sodium 142, potassium 3.9, chloride 109, bicarbonate 28, BUN is 12, creatini ne 0.78, glucose of 99. BNP is slightly high at 1330. Triglycerides 101,cholesterol 108, LDL 58, HD L 30. TSH is 1.1. Urinalysis was positive and urine culture did show E. coli sensitive to cefazolin . Also blood cultures 2/2 bottles have Staph species. I asked for repeat cultures to be done this m jolanta. MEDICATIONS: Include: 1. Lovenox 40 mg subQ daily. 2. Vancomycin dose per pharmacy. 3. Morphine sulfate p.r.n. 4. Rocephin 1 g q.24 hours. 5. Clotrimazole cream b.i.d. 6. Benazepril 20 daily. 7. Vitamin B12 1000 daily. 8. Toprol-XL 50 mg daily. 9. Zoloft 100 mg daily. 10. Synthroid 25 mcg daily. 11. Protonix 40 mg daily. 12. Zofran p.r.n. 13. Tylenol p.r.n. 14. Panora p.r.n. 15. Colace p.r.n. 16. Depakote p.r.n. 16. Imodium. 17. Normal saline at 70 mL an hour. ASSESSMENT AND PLAN: This is a 73-year-old female with history of cerebrovascular accident , right hemiplegia, hypertension, dyslipidemia, hypothyroidism, who presented with abdominal pain, wa s found to have urinary tract infection, right-sided kidney stone. 1. Urinary tract infection. Organism is Escherichia coli sensitive to Rocephin. Continue above. 2. Rule out bacteremia. Repeat blood cultures. Continue vancomycin. ID is following. We will fol low up with repeat blood cultures. 3. History of atrial fibrillation, currently on Lovenox. Continue anticoagulation, Eliquis upon dis charge. Cardiology is following. 4. Hypothyroidism. The patient is on low-dose Synthroid 25 mcg daily. The patient's TSH level is w ithin normal limits at 1.1. Continue same dosage. 5. Cerebrovascular accident. Supportive care. Physical therapy as tolerated. 6. Depression, on Zoloft. 7. Multiple kidney stones. Follow up with Dr. Denise. Postop recommendations and follow up. Case was discussed with family at bedside in detail regarding plan of care. We will follow. Dictated By: GRISEL DURANT/NTS Conf#: [id number] DID#: [id number] CC: LOPEZ DENISE MD;*End*
--- NOTE | 2018-10-23 14:19 | OPR ---
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 She was positioned in the lithotomy position. The genital area was prepped and draped in the usual sterile manner. She has already been on antibiotics so no additional antibiotic was given. #21 [place] cystoscope sheath was introduced into the bladder and urine was collected for culture and sensitivity. The right ureteral orifice was then visualized and cannulated with a 5 [place] open ended ureteral catheter. A 0.035 zip wire was advanced through the open ended all the way up to the kidney. The open ended was then removed leaving the zip wire in place then I advanced a 6 [place] by 24 cm long JJ stent on the zip wire. Had the proximal and curling into the kidney and the distal end curling into the bladder. The bladder was then emptied and the patient was transferred to the recovery room in a stable and satisfactory condition. LOPEZ SON MD Oct 23, 2018 14:19
[2018-10-23] MEDS ORDERED: ONDANSETRON 4 MG INJ IV PRN (14:30)
[2018-10-23] MEDS ORDERED: HYDROmorphONE 1 MG/5 ML IV SYRINGE IV PRN ×3 (14:30)
[2018-10-23] MEDS ORDERED: DIPHENHYDRAMINE 50 MG INJ IV PRN (14:30)
--- NOTE | 2018-10-23 16:11 | CONS ---
Date/Time of Note Date/Time of Note DATE: 10/23/18 TIME: 16:09 Consult Date/Type/Reason Admit Date/Time Oct 21, 2018 at 20:20 Initial Consult Date 10/22/18 Type of Consultation: cv Requesting Provider: DEBBI SY MD Subjective Cardiology follow-up progress note Subjective: Discussed with patient's son and daughter. Patient says her urological procedure. No report of chest pain or pressure no palpitation however patient has expressive aphasia. Daughter and son are not aware of any history of atrial fibrillation in the past but they have reported that she has been placed on Coumadin because of her stroke. According to the daughter she was previously on Eliquis for some time however had to be stopped because the family could not afford it. Objective: General: no acute distress HEENT: NC/AT. pupils are equal. round. NECK: NO JVD. no stridor. CV: RRR. systolic murmur; no gallop or rubs. PULM: no wheezing or rhonchi. GI: SOFT, NT, ND, no rebound or guarding Extremity: trace B/L LE edema. no clubbing. neuro: awake and verbal but has expressive aphasia and is noncoherent Psych: calm and pleasant rectal: deferred EKG was personally reviewed within normal sinus rhythm with PACs CT of the abdomen shows: There is inflammation of the right renal pelvis and UVJ secondary to multiple stones without hydronephrosis. There are multiple nonobstructing right upper pole renal calculi also present. There is bilateral mild renal atrophy slightly more pronounced on the right side. 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 There is a collapsed appearance of the colon without obstruction or visible focal inflammation. There is diverticulosis without diverticulitis. Atherosclerotic disease is present. Mosaic attenuation of the lower lungs is seen with faint ground-glass which could represent mild edema or pneumonitis. 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 Objective Vital Signs Date Temp Pulse Resp B/P (MAP) Pulse Ox O2 O2 Flow FiO2 Time Delivery Rate 10/23/18 97.9 73 18 121/56 94 Nasal 2.0 15:49 (77) Cannula Intake and Output 10/22/18 10/22/18 10/23/18 1515:00 23:00 07:00 IntakeIntake Total 1120 ml 300 ml 600 ml BalanceBalance 1120 ml 300 ml 600 ml Results/Medications Result Diagram: 10/23/18 0556 10/23/18 0556 Results 24 hrs Laboratory Tests Test 10/23/18 05:56 10/23/18 05:57 White Blood Count 9.3 Red Blood Count 4.18 L Hemoglobin 12.0 Hematocrit 38.6 Mean Corpuscular Volume 92.3 Mean Corpuscular Hemoglobin 28.7 L Mean Corpuscular Hemoglobin Concent 31.1 L Red Cell Distribution Width 12.8 Platelet Count 176 Mean Platelet Volume 10.4 Immature Granulocytes % 0.300 Neutrophils % 72.3 Lymphocytes % 18.5 Monocytes % 7.1 Eosinophils % 1.6 Basophils % 0.2 Nucleated Red Blood Cells % 0.0 Immature Granulocytes # 0.030 Neutrophils # 6.7 Lymphocytes # 1.7 Monocytes # 0.7 Eosinophils # 0.2 Basophils # 0.0 Nucleated Red Blood Cells # 0.0 Sodium Level 142 Potassium Level 3.9 Chloride Level 109 Carbon Dioxide Level 28 Anion Gap 5 Blood Urea Nitrogen 12 Creatinine 0.78 Est Glomerular Filtrat Rate mL/min Glucose Level 99 Calcium Level 9.0 Phosphorus Level 3.7 Magnesium Level 2.0 B-Type Natriuretic Peptide 1330 H Triglycerides Level 101 Cholesterol Level 108 LDL Cholesterol, Calculated 58 HDL Cholesterol 30 L Cholesterol/HDL Ratio 3.6 Thyroid Stimulating Hormone (TSH) 1.180 Medications Current Medications Sodium Chloride 1,000 ml @ 70 mls/hr [id number] IV Last administered on 10/23/18at 12:01; Admin Dose 70 MLS/HR; Start 10/21/18 at 22:41 IV Flush (NS 3 ml) 3 ml PER PROTOCOL IV ; Start 10/21/18 at 23:00 Ondansetron HCl (Zofran Inj) 4 mg Q6H PRN IV NAUSEA AND/OR VOMITING; Start 10/21/18 at 23:00 Acetaminophen (Tylenol Tab) 650 mg Q6H PRN PO PAIN LEVEL 1-3 OR FEVER; Start 10/21/18 at 23:00 Acetaminophen/ Hydrocodone Bitart ([place] (5/325)) 1 tab Q6H PRN PO MODERATE PAIN LEVEL 4-6; Start 10/21/18 at 23:00 Docusate Sodium (Colace) 100 mg Q12H PRN PO CONSTIPATION; Start 10/21/18 at 23:00 Pantoprazole (Protonix Tab) 40 mg DAILY@06 PO Last administered on 10/22/18at 0 6:41; Admin Dose 40 MG; Start 10/22/18 at 06:00 Ceftriaxone Sodium 50 ml @ 100 mls/hr Q24H IVPB Last administered on 10/22/18at 19:59; Admin Dose 100 MLS/HR; Start 10/22/18 at 20:00 Benazepril HCl (Lotensin) 20 mg DAILY PO Last administered on 10/22/18 08:44; Admin Dose 20 MG; Start 10/22/18 at 09:00 Phenol (Cepastat Lozenge) 1 lozenge TID PRN MM SORE THROAT; Start 10/21/18 at 23:00 Cyanocobalamin (Vitamin B12) 1,000 mcg DAILY PO Last administered on 10/22/18at 08:45; Admin Dose 1,000 MCG; Start 10/22/18 at 09:00 Levothyroxine Sodium (Synthroid) 25 mcg BEFORE BREAKFAST PO Last administered on 10/22/18at 06:41; Admin Dose 25 MCG; Start 10/22/18 at 07:00 Loperamide HCl (Imodium Cap) 2 mg DAILY PRN PO DIARRHEA; Start 10/21/18 at 23:00 Metoprolol Succinate (Toprol Xl) 50 mg DAILY PO Last administered on 10/22/18at 08:44; Admin Dose 50 MG; Start 10/22/18 at 09:00 Sertraline HCl (Zoloft) 100 mg DAILY PO Last administered on 10/22/18 08:44; Admin Dose 100 MG; Start 10/22/18 at 09:00 Miscellaneous Information (Pending [facility] Order For Wound Care) This patient renteria... PRN PRN XX NOTE; Start 10/22/18 at 02:30 Clotrimazole (Lotrimin Cr) 1 applic BID TOP Last administered on 10/23/18at 08 :25; Admin Dose 1 APPLIC; Start 10/22/18 at 10:30 Vancomycin HCl (Vanco Iv Per Pharmacy) VANCOMYCIN PER PHARMACY PER PROTOCOL XX ; Start 10/22/18 at 18:30 Vancomycin HCl 1.25 gm/Sodium Chloride 250 ml @ 83.333 mls/ hr Q24H IVPB ; Start 10/23/18 at 18:00 Morphine Sulfate (morphine) 6 mg Q4H PRN PO SEVERE PAIN LEVEL 7-10 Last administered on 10/23/18at 08:21; Admin Dose 6 MG; Start 10/22/18 at 22:30 Enoxaparin Sodium (Lovenox) 40 mg DAILY SC ; Start 10/24/18 at 09:00 Hydromorphone HCl (Dilaudid) 0.2 mg PACU PRN IV MILD PAIN LEVEL 1-3; Start 10/23/18 at 14:30; Stop 10/23/18 at 18:30 Hydromorphone HCl (Dilaudid) 0.4 mg PACU PRN IV MODERATE PAIN LEVEL 4-6 Last administered on 10/23/18at 14:34; Admin Dose 0.4 MG; Start 10/23/18 at 14:30; Stop 10/23/18 at 18:30 Hydromorphone HCl (Dilaudid) 0.6 mg PACU PRN IV SEVERE PAIN LEVEL 7-10; Start 10/23/18 at 14:30; Stop 10/23/18 at 18:30 Ondansetron HCl (Zofran Inj) 4 mg PACU ORDER PRN IV NAUSEA AND/OR VOMITING; Start 10/23/18 at 14:30; Stop 10/23/18 at 18:30 Diphenhydramine HCl (Benadryl) 25 mg PACU ORDER PRN IV PRURITUS; Start 10/23/18 at 14:30; Stop 10/23/18 at 18:30 Assessment/Plan Chief Complaint/Hosp Course 1. Nephrolithiasis 2. History of CVA 3. History of possible P atrial fibrillation although not sure 4. Hypertension controlled 5. Rule out dyslipidemia 6. Aphasia 7. Cardia vascular preop evaluation for urological procedure 8. Hypothyroidism Recommendation: Continue with the Toprol. Patient's INR was subtherapeutic at 1 on admission. Family is reluctant to switch her from Coumadin to other anti-coagulant due to concern about the cost Aggressive risk factor modification including repeat management is recommended. Thyroid supplement to be continued. Coumadin to be resumed once okay from urological standpoint Thank you for his referral. We will continue to follow along with you. DIETER DE LEON MD [facility] DIETER DE LEON MD Oct 23, 2018 16:11
--- NOTE | 2018-10-23 17:01 | RADRPT ---
Echocardiogram Report Patient Name: YOBANY JIM Gender: Female Date: 1945 Study Date: 22-Oct-2018 Senior It Specialist: NICK Location: [id number] Ref. Physician: DIETER FLORES Quality: Adequate Procedures: Transthoracic echocardiogram with complete 2D, M-Mode, and doppler examination. Indications: Atrial Fibrillation. 2D/M Mode Doppler Measurement Value Normal Ranges Measurement Value Normal Ranges AoR Diam MM 3.2 cm PV Peak Uche 1.0 m/sec ACS MM 1.9 cm PV Peak PG 4.0 mmHg LA/Ao MM 0.9 LA Dimen MM 3.0 cm LVIDd 2D 4.1 3.5 - 5.6 cm LVIDs 2D 2.9 2.1 - 4.1 cm LVPWd 2D 0.8 0.6 - 1.1 cm IVSd 2D 1.0 0.6 - 1.1 cm AoR Diam 2D 2.1 2.0 - 3.7 cm LA/Ao 2D 1 0 - 1 EF 2D 56.0 50.0 - 65.0 % LA Dimen 2D 3.0 2.3 - 4.0 cm Findings Left Ventricle: Normal left ventricular systolic function. Normal left ventricular cavity size. Normal left ventricular wall thickness. Ejection fraction is visually estimated at 55 %. Right Ventricle: Not well visualized. Left Atrium: The left atrium is normal in size. Right Atrium: Not well visualized. Mitral Valve: Trace mitral regurgitation. Aortic Valve: Aortic valve not well visualized. Aortic sclerosis without significant stenosis. Mild aortic valve regurgitation. Tricuspid Valve: Tricuspid valve not well visualized. Unable to obtain RVSP due to minimal presence of tricuspid regurgitation. There is trace tricuspid regurgitation. Pulmonic Valve: Normal pulmonic valve appearance. Pericardium: Normal pericardium with no significant pericardial effusion. Aorta: Not well visualized. IVC: The IVC is not well visualized. Conclusions Normal left ventricular systolic function. Normal left ventricular cavity size. Normal left ventricular wall thickness. Ejection fraction is visually estimated at 55 %. Trace mitral regurgitation. Aortic valve not well visualized. Aortic sclerosis without significant stenosis. Mild aortic valve regurgitation. Tricuspid valve not well visualized. Unable to obtain RVSP due to minimal presence of tricuspid regurgitation. There is trace tricuspid regurgitation. Electronically Signed By: Dieter Flores 23-Oct-2018 17:00:48 -0800 Patient Name: YOBANY JIM Study Date: 22-Oct-[id number]
[2018-10-23] MEDS ORDERED: VANCOMYCIN HCL 1.25 GM in SOD CHLORIDE 0.9% 250 ML IVPB SCH (18:00)
[2018-10-23] MEDS: CEFTRIAXONE 1 GM/50 ML (PMX) 50 ML IVPB SCH (20:49)
--- NOTE | 2018-10-24 00:51 | PAC ---
Date/Time of Note Date/Time of Note DATE: 10/24/18 TIME: 00:51 Post-Anesthesia Notes Post-Anesthesia Note Last documented vital signs Vital Signs Date Temp Pulse Resp B/P (MAP) Pulse Ox O2 O2 Flow FiO2 Time Delivery Rate 10/23/18 98.7 72 18 123/56 98 Nasal 20:00 (78) Cannula 10/23/18 2.0 15:49 Activity: WNL Respiratory function: WNL Cardiovascular function: WNL Mental status: Baseline Pain reasonably controlled: Yes Hydration appropriate: Yes Nausea/Vomiting absent: No HOLLY BAGLEY MD Oct 24, 2018 00:51
--- NOTE | 2018-10-24 01:52 | RADRPT ---
Vent Rate: 78 bpm RR Interval: 0 msec SD Interval: 160 msec QRS Duration: 68 msec QT Interval: 436 msec QTC Interval: 497 msec P-R-T [place]: 71 - 25 - 31 degrees Sinus rhythm with frequent premature ventricular complexes Prolonged QT Abnormal ECG Electronically Signed By: Edwin German [id number]
[2018-10-24 02:00] VITALS: BP 135/64; PULSE 97; RESP 18
[2018-10-24] MEDS: SOD CHLORIDE 0.9% 1,000 ML IV SCH (03:17)
[2018-10-24] MEDS: LEVOTHYROXINE 25 MCG TAB PO SCH (06:10)
[2018-10-24] MEDS: PANTOPRAZOLE (EC) 40 MG TAB PO SCH (06:10)
[2018-10-24 07:50] VITALS: BP 148/65; PULSE 86; RESP 18
[2018-10-24] MEDS: BENAZEPRIL 20 MG TAB PO SCH (08:58)
[2018-10-24] MEDS: SERTRALINE 100 MG TAB PO SCH (08:58)
[2018-10-24] MEDS: CYANOCOBALAMIN 500 MCG TAB PO SCH (08:59)
[2018-10-24] MEDS: METOPROLOL (XL) 50 MG TAB PO SCH (08:59)
[2018-10-24] MEDS: CLOTRIMAZOLE 1% 30 GM CR TOP SCH ×2 (09:00→20:15)
[2018-10-24] MEDS: ENOXAPARIN 40 MG/0.4 ML SYG SC SCH (09:03)
[2018-10-24] MEDS: HYDROCODONE/APAP (5/325) TAB PO PRN ×2 (11:45→18:21)
[2018-10-24 14:30] VITALS: BP 147/63; PULSE 76; RESP 16
--- NOTE | 2018-10-24 14:32 | CONS ---
Date/Time of Note Date/Time of Note DATE: 10/24/18 TIME: 14:31 Assessment/Plan Assessment/Plan Hospital Course No acute events overnight patient is alert looks comfortable denies pain no fevers overnight WBC today 9 no shift no bands BUN 12 creatinine 0.84 Microbiology: Urine culture on admission grew E. coli susceptible to amikacin Ancef cefotaxime Macrobid and Bactrim. Blood culture grew coag negative staph suspicious, repeat blood cultures negative, repeat urine culture negative, MRSA swab negative Antimicrobials: Rocephin, status post vancomycin 2D echo revealed ejection fraction of 55%, no evidence of vegetations Physical examination: This is a well-developed well-nourished elderly woman who is awake in no distress. Head atraumatic normocephalic. Neck is supple chest rise symmetrical breath sounds clear heart: S1-S2. Abdomen soft bowel sounds present extremities without cyanosis right lower extremities with brownish discoloration Assessment: 1. Acute pyelonephritis with urine culture grew E. coli 2. Coag negative staph bacteremia consistent with contaminant 3. Obstructive uropathy status post cystoscopy with stent placement 10/23/18 4. History of CVA Plan: Patient is doing better, continue present care, antibiotics, follow urology recommendations==> anticipate dc on oral Keflex, pt to fu with Dr Denise outpatient DW Dr Denise Result Diagram: 10/24/18 0452 10/24/18 0452 Results 24hrs Laboratory Tests Test 10/24/18 04:52 White Blood Count 9.0 Red Blood Count 4.20 Hemoglobin 12.2 Hematocrit 39.1 Mean Corpuscular Volume 93.1 Mean Corpuscular Hemoglobin 29.0 Mean Corpuscular Hemoglobin Concent 31.2 L Red Cell Distribution Width 13.1 Platelet Count 159 Mean Platelet Volume 10.0 Immature Granulocytes % 0.200 Neutrophils % 69.5 Lymphocytes % 20.1 Monocytes % 7.2 Eosinophils % 2.7 Basophils % 0.3 Nucleated Red Blood Cells % 0.0 Immature Granulocytes # 0.020 Neutrophils # 6.3 Lymphocytes # 1.8 Monocytes # 0.7 Eosinophils # 0.2 Basophils # 0.0 Nucleated Red Blood Cells # 0.0 Sodium Level 142 Potassium Level 3.8 Chloride Level 109 Carbon Dioxide Level 29 Anion Gap 4 L Blood Urea Nitrogen 12 Creatinine 0.84 Est Glomerular Filtrat Rate mL/min Glucose Level 103 Calcium Level 8.9 Phosphorus Level 3.2 Magnesium Level 1.9 Consultation Date/Type/Reason Admit Date/Time Oct 21, 2018 at 20:20 Initial Consult Date 10/22/18 Type of Consult id Requesting Provider: DEBBI SY MD Exam/Review of Systems Vital Signs Vitals Vital Signs Date Temp Pulse Resp B/P (MAP) Pulse Ox O2 O2 Flow FiO2 Time Delivery Rate 10/24/18 Nasal 2.0 08:15 Cannula 10/24/18 98.3 86 18 148/65 92 07:50 (92) Intake and Output 10/23/18 10/23/18 10/24/18 1414:59 22:59 06:59 IntakeIntake Total 800 ml 850 ml 840 ml OutputOutput Total 0 ml BalanceBalance 800 ml 850 ml 840 ml Medications Medications Current Medications IV Flush (NS 3 ml) 3 ml PER PROTOCOL IV ; Start 10/21/18 at 23:00 Ondansetron HCl (Zofran Inj) 4 mg Q6H PRN IV NAUSEA AND/OR VOMITING; Start 10/21/18 at 23:00 Acetaminophen (Tylenol Tab) 650 mg Q6H PRN PO PAIN LEVEL 1-3 OR FEVER; Start 10/21/18 at 23:00 Acetaminophen/ Hydrocodone Bitart ([place] (5/325)) 1 tab Q6H PRN PO MODERATE PA IN LEVEL 4-6 Last administered on 10/24/18at 11:45; Admin Dose 1 TAB; Start 10/21/18 at 23:00 Docusate Sodium (Colace) 100 mg Q12H PRN PO CONSTIPATION; Start 10/21/18 at 23:00 Pantoprazole (Protonix Tab) 40 mg DAILY@06 PO Last administered on 10/24/18at 06:10; Admin Dose 40 MG; Start 10/22/18 at 06:00 Ceftriaxone Sodium 50 ml @ 100 mls/hr Q24H IVPB Last administered on 10/23/18at 20:49; Admin Dose 100 MLS/HR; Start 10/22/18 at 20:00 Benazepril HCl (Lotensin) 20 mg DAILY PO Last administered on 10/24/18at 08:58; Admin Dose 20 MG; Start 10/22/18 at 09:00 Phenol (Cepastat Lozenge) 1 lozenge TID PRN MM SORE THROAT; Start 10/21/18 at 23:00 Cyanocobalamin (Vitamin B12) 1,000 mcg DAILY PO Last administered on 10/24/18 08:59; Admin Dose 1,000 MCG; Start 10/22/18 at 09:00 Levothyroxine Sodium (Synthroid) 25 mcg BEFORE BREAKFAST PO Last administered on 10/24/18 06:10; Admin Dose 25 MCG; Start 10/22/18 at 07:00 Loperamide HCl (Imodium Cap) 2 mg DAILY PRN PO DIARRHEA; Start 10/21/18 at 23:00 Metoprolol Succinate (Toprol Xl) 50 mg DAILY PO Last administered on 10/24/18 08:59; Admin Dose 50 MG; Start 10/22/18 at 09:00 Sertraline HCl (Zoloft) 100 mg DAILY PO Last administered on 10/24/18 08:58; Admin Dose 100 MG; Start 10/22/18 at 09:00 Miscellaneous Information (Pending [facility] Order For Wound Care) This patient renteria... PRN PRN XX NOTE; Start 10/22/18 at 02:30 Clotrimazole (Lotrimin Cr) 1 applic BID TOP Last administered on 10/24/18 09:00; Admin Dose 1 APPLIC; Start 10/22/18 at 10:30 Morphine Sulfate (morphine) 6 mg Q4H PRN PO SEVERE PAIN LEVEL 7-10 Last administered on 10/23/18 08:21; Admin Dose 6 MG; Start 10/22/18 at 22:30 Enoxaparin Sodium (Lovenox) 40 mg DAILY SC Last administered on 10/24/18 09:03; Admin Dose 40 MG; Start 10/24/18 at 09:00 MEEK COLES NP Oct 24, 2018 14:32
--- NOTE | 2018-10-24 16:38 | CONS ---
Date/Time of Note Date/Time of Note DATE: 10/24/18 TIME: 16:34 Consult Date/Type/Reason Admit Date/Time Oct 21, 2018 at 20:20 Initial Consult Date 10/22/18 Type of Consultation: Urology Reason for Consultation Right renal stone Requesting Provider: GRISEL SY MD Subjective No events overnight. She denies any pain. She is status post cystoscopy and insertion of right ureteral JJ stent Objective Vital Signs Date Temp Pulse Resp B/P (MAP) Pulse Ox O2 O2 Flow FiO2 Time Delivery Rate 10/24/18 98.4 76 16 147/63 94 Nasal 14:30 (91) Cannula 10/24/18 2.0 08:15 Intake and Output 10/23/18 10/23/18 10/24/18 1515:00 23:00 07:00 IntakeIntake Total 800 ml 850 ml 840 ml OutputOutput Total 0 ml BalanceBalance 800 ml 850 ml 840 ml Exam Patient is comfortable and denies having any pain. KUB: The bowel gas pattern is normal. There is no evidence of obstruction. 5 mm calcification is seen in the peripheral right renal mid pole. There is a stable 16 mm rounded calcification on the inferomedial left kidney. The osseus structures are unremarkable. There has been interval insertion of a right double-J ureteral stent. Results/Medications Result Diagram: 10/24/182 10/24/18 0452 Results 24 hrs Laboratory Tests Test 10/24/18 04:52 White Blood Count 9.0 Red Blood Count 4.20 Hemoglobin 12.2 Hematocrit 39.1 Mean Corpuscular Volume 93.1 Mean Corpuscular Hemoglobin 29.0 Mean Corpuscular Hemoglobin Concent 31.2 L Red Cell Distribution Width 13.1 Platelet Count 159 Mean Platelet Volume 10.0 Immature Granulocytes % 0.200 Neutrophils % 69.5 Lymphocytes % 20.1 Monocytes % 7.2 Eosinophils % 2.7 Basophils % 0.3 Nucleated Red Blood Cells % 0.0 Immature Granulocytes # 0.020 Neutrophils # 6.3 Lymphocytes # 1.8 Monocytes # 0.7 Eosinophils # 0.2 Basophils # 0.0 Nucleated Red Blood Cells # 0.0 Sodium Level 142 Potassium Level 3.8 Chloride Level 109 Carbon Dioxide Level 29 Anion Gap 4 L Blood Urea Nitrogen 12 Creatinine 0.84 Est Glomerular Filtrat Rate mL/min Glucose Level 103 Calcium Level 8.9 Phosphorus Level 3.2 Magnesium Level 1.9 Medications Current Medications IV Flush (NS 3 ml) 3 ml PER PROTOCOL IV ; Start 10/21/18 at 23:00 Ondansetron HCl (Zofran Inj) 4 mg Q6H PRN IV NAUSEA AND/OR VOMITING; Start 10/21/18 at 23:00 Acetaminophen (Tylenol Tab) 650 mg Q6H PRN PO PAIN LEVEL 1-3 OR FEVER; Start 10/21/18 at 23:00 Acetaminophen/ Hydrocodone Bitart ([place] (5/325)) 1 tab Q6H PRN PO MODERATE PAIN LEVEL 4-6 Last administered on 10/24/18at 11:45; Admin Dose 1 TAB; Start 10/21/18 at 23:00 Docusate Sodium (Colace) 100 mg Q12H PRN PO CONSTIPATION; Start 10/21/18 at 23:00 Pantoprazole (Protonix Tab) 40 mg DAILY@06 PO Last administered on 10/24/18 06:10; Admin Dose 40 MG; Start 10/22/18 at 06:00 Ceftriaxone Sodium 50 ml @ 100 mls/hr Q24H IVPB Last administered on 10/23/18at 20:49; Admin Dose 100 MLS/HR; Start 10/22/18 at 20:00 Benazepril HCl (Lotensin) 20 mg DAILY PO Last administered on 10/24/18at 08:58; Admin Dose 20 MG; Start 10/22/18 at 09:00 Phenol (Cepastat Lozenge) 1 lozenge TID PRN MM SORE THROAT; Start 10/21/18 at 23:00 Cyanocobalamin (Vitamin B12) 1,000 mcg DAILY PO Last administered on 10/24/18at 08:59; Admin Dose 1,000 MCG; Start 10/22/18 at 09:00 Levothyroxine Sodium (Synthroid) 25 mcg BEFORE BREAKFAST PO Last administered on 10/24/18 06:10; Admin Dose 25 MCG; Start 10/22/18 at 07:00 Loperamide HCl (Imodium Cap) 2 mg DAILY PRN PO DIARRHEA; Start 10/21/18 at 23:00 Metoprolol Succinate (Toprol Xl) 50 mg DAILY PO Last administered on 10/24/18at 08:59; Admin Dose 50 MG; Start 10/22/18 at 09:00 Sertraline HCl (Zoloft) 100 mg DAILY PO Last administered on 10/24/18at 08:58; Admin Dose 100 MG; Start 10/22/18 at 09:00 Miscellaneous Information [facility] This patient renteria... PRN PRN XX NOTE; Start 10/22/18 at 02:30 Clotrimazole (Lotrimin Cr) 1 applic BID TOP Last administered on 10/24/18at 09:00; Admin Dose 1 APPLIC; Start 10/22/18 at 10:30 Morphine Sulfate (morphine) 6 mg Q4H PRN PO SEVERE PAIN LEVEL 7-10 Last administered on 10/23/18 08:21; Admin Dose 6 MG; Start 10/22/18 at 22:30 Enoxaparin Sodium (Lovenox) 40 mg DAILY SC Last administered on 10/24/18at 09:03; Admin Dose 40 MG; Start 10/24/18 at 09:00 Assessment/Plan Chief Complaint/Hosp Course 73-year-old female has a known history of stroke on 08/23/2011 resulting in right hemiplegia and expressive aphasia. She lives in an assisted living facility. He was brought to the emergency room because of right flank pain. She underwent a CT scan of the abdomen and pelvis and that showed: Urinary: There are is a 6 mm stone at the right renal pelvis and 7 mm stone directly distal to this at the UPJ and this results in wall thickening inflammation of the wall of the right renal pelvis and UPJ without hydronephrosis. There are several nonobstructing right upper pole renal calculi and the largest of these measures up to 9 mm in length. There is bilateral mild renal atrophy slightly more pronounced on the right side. No left-sided renal or ureteral stones are present. 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 A urological consultation was therefore requested. Since the patient has expressive aphasia from her stroke I called her daughter Kiana and she was very helpful in the history. The patient has been wheelchair-bound since she cannot walk or stand on her own. As she has been incontinent and managed with diapers. She can feed herself. She does have right hemiplegia. Patient underwent cystoscopy and insertion of right ureteral JJ stent on 10/23/2018. She is comfortable today and denies having any pain. She may be discharged and will have to follow up as an outpatient and bring her back to treat the stone. LOPEZ SON MD Oct 24, 2018 16:38
--- NOTE | 2018-10-24 16:40 | PN ---
DATE: 10/24/2018 SUBJECTIVE: The patient was seen, appears to be comfortable. The patient is status post cystoscopy and insertion of right ureteral JJ stent. The patient tolerated the procedure well. PHYSICAL EXAMINATION: VITAL SIGNS: Temperature 98.3, pulse 86, respiration 18, blood pressure 140/65, saturation 92% to 96 % on 2 liters. GENERAL: No acute distress. The patient is pale. CARDIOVASCULAR: S1 and S2. Regular rate. LUNGS: Clear. ABDOMEN: Soft, nontender. EXTREMITIES: No clubbing, cyanosis or edema. The patient is with right-sided weakness, this is old. LABORATORY DATA: White count is 9, hemoglobin 12.2, hematocrit 39, platelets 159 with normal differe ntial. Chemistry: Sodium 142, potassium 3.8, chloride 109, bicarbonate 29, BUN is 12, creatinine 0. 84, glucose 103. TSH is 1.1. Urinalysis was positive on admission and all cultures did show E coli sensitive to cefazolin, cefotaxime, nitrofurantoin, Bactrim, and amikacin. The patient's blood cultu res shows just coagulase negative staph in 2/2 bottles, sensitive to cefazolin as well, but repeat bl ood cultures are negative. Repeat urine culture is negative. An MRSA screening is negative. KUB do ne postoperatively shows interval insertion of right double-J ureteral stent. A 5 mm right renal colin culus is seen. MEDICATIONS: 1. Lovenox 40 mg subQ every day. 2. Vancomycin dose per pharmacy. 3. Morphine p.r.n. 4. Ceftriaxone 1 gram q.24h. 5. Lotrimin cream b.i.d. 6. Lotensin 20 q. daily. 7. Vitamin B12 1000 daily. 8. Toprol-XL 50 mg daily. 9. Zoloft 100 mg daily. 10. Synthroid 25 mcg daily. 11. Potassium ____ grams daily. 12. Zofran p.r.n. 13. Tylenol p.r.n. 14. [place] p.r.n. 15. Colace p.r.n. 16. Imodium p.r.n. 17. Normal saline at 70 mL an hour, which we can Hep-Lock. ASSESSMENT AND PLAN: This is a 73-year-old female with history of cerebrovascular accident , right hemiplegia, hypertension, dyslipidemia, and hypothyroidism who presented with abdominal pain and was found to have urinary tract infection and right-sided kidney stone. 1. Urinary tract infection, organism Escherichia coli sensitive to Rocephin. We will discontinue va ncomycin as most likely the bacteremia is contamination, but overall it is sensitive also to cephalos porins. May discontinue vancomycin. ID is following. 2. Rule out bacteremia. Repeat blood cultures are negative. Will follow up with ID. 3. History of atrial fibrillation. Cardiology is following regarding anticoagulation. 4. Hypothyroidism. Continue Synthroid. TSH is within normal limits. 5. Cerebrovascular accident. Continue supportive care. Diet as tolerated. 6. Depression, on Zoloft. 7. Right-sided kidney stone, status post stent placement. Outpatient followup with Dr. Denise for lithotripsy and further medical management and removal of stent in the future. Clinically better, disposition soon. I will be in touch with family members. We will follow. Hep-L ock IV fluids. Dictated By: GRISEL DURANT/IMELDA Conf#: [id number] DID#: [id number]
[2018-10-24 20:00] VITALS: BP_SYST 111; BP_SYST 147; BP_DIAS 63; BP_DIAS 70; PULSE 73; PULSE 95; RESP 17; RESP 19
[2018-10-24] MEDS: CEFTRIAXONE 1 GM/50 ML (PMX) 50 ML IVPB SCH (20:15)
[2018-10-25 02:00] VITALS: BP 148/67; PULSE 66; RESP 18
[2018-10-25] MEDS: LEVOTHYROXINE 25 MCG TAB PO SCH (06:09)
[2018-10-25] MEDS: PANTOPRAZOLE (EC) 40 MG TAB PO SCH (06:09)
[2018-10-25 08:17] VITALS: BP 162/70; PULSE 60; RESP 20
[2018-10-25] MEDS: CYANOCOBALAMIN 500 MCG TAB PO SCH (08:44)
[2018-10-25] MEDS: METOPROLOL (XL) 50 MG TAB PO SCH (08:44)
[2018-10-25] MEDS: SERTRALINE 100 MG TAB PO SCH (08:44)
[2018-10-25] MEDS: ENOXAPARIN 40 MG/0.4 ML SYG SC SCH (08:45)
[2018-10-25] MEDS: BENAZEPRIL 20 MG TAB PO SCH (08:45)
[2018-10-25] MEDS: CLOTRIMAZOLE 1% 30 GM CR TOP SCH (08:46)
[2018-10-25 11:09] VITALS: BP 142/70; PULSE 60
[2018-10-25] MEDS: HYDROCODONE/APAP (5/325) TAB PO PRN (11:36)
--- NOTE | 2018-10-25 12:57 | CONS ---
Date/Time of Note Date/Time of Note DATE: 10/25/18 TIME: 12:54 Assessment/Plan Assessment/Plan Result Diagram: 10/24/18 0452 10/24/18 0452 Consultation Date/Type/Reason Admit Date/Time Oct 21, 2018 at 20:20 Initial Consult Date SUBJECTIVE: Patient is awake, alert looks comfortable. No acute events over night. VS: stable t: 97.6 LABS: reviewed. Microbiology: Urine culture on admission grew E. coli susceptible to amikacin Ancef cefotaxime Macrobid and Bactrim. Blood culture grew coag negative staph suspicious, repeat blood cultures negative, repeat urine culture negative, MRSA swab negative Antimicrobials: Rocephin, status post vancomycin 2D echo revealed ejection fraction of 55%, no evidence of vegetations Physical examination: GEN: This is a well-developed well-nourished elderly woman who is awake in no distress. HENT: Head atraumatic normocephalic. Neck is supple PULM: chest rise symmetrical, breath sounds clear Heart: S1-S2. Abdomen soft bowel sounds present Extremities without cyanosis right lower extremities with brownish discoloration Assessment: 1. Acute pyelonephritis with urine culture grew E. coli 2. Coag negative staph bacteremia consistent with contaminant 3. Obstructive uropathy status post cystoscopy with stent placement 10/23/18 4. History of CVA Plan: Patient is doing better. Continue current antibiotics. Urology recommendations==> anticipate dc on oral Keflex, pt to fu with Dr Denise outpatient. Requesting Provider: GRISEL SY MD Exam/Review of Systems Vital Signs Vitals Vital Signs Date Temp Pulse Resp B/P (MAP) Pulse Ox O2 O2 Flow FiO2 Time Delivery Rate 10/25/18 60 142/70 11:09 (94) 10/25/18 97.6 20 92 08:17 10/24/18 Nasal 14:30 Cannula 10/24/18 2.0 08:15 Intake and Output 10/24/18 10/24/18 10/25/18 1515:00 23:00 07:00 IntakeIntake Total 400 ml 950 ml 340 ml BalanceBalance 400 ml 950 ml 340 ml Medications Medications Current Medications IV Flush (NS 3 ml) 3 ml PER PROTOCOL IV ; Start 10/21/18 at 23:00 Ondansetron HCl (Zofran Inj) 4 mg Q6H PRN IV NAUSEA AND/OR VOMITING; Start 10/21/18 at 23:00 Acetaminophen (Tylenol Tab) 650 mg Q6H PRN PO PAIN LEVEL 1-3 OR FEVER; Start 10/21/18 at 23:00 Acetaminophen/ Hydrocodone Bitart ([place] (5/325)) 1 tab Q6H PRN PO MODERATE PAIN LEVEL 4-6 Last administered on 10/25/18 11:36; Admin Dose 1 TAB; Start 10/21/18 at 23:00 Docusate Sodium (Colace) 100 mg Q12H PRN PO CONSTIPATION; Start 10/21/18 at 23:00 Pantoprazole (Protonix Tab) 40 mg DAILY@06 PO Last administered on 10/25/18 06:09; Admin Dose 40 MG; Start 10/22/18 at 06:00 Ceftriaxone Sodium 50 ml @ 100 mls/hr Q24H IVPB Last administered on 10/24/18 20:15; Admin Dose 100 MLS/HR; Start 10/22/18 at 20:00 Benazepril HCl (Lotensin) 20 mg DAILY PO Last administered on 10/25/18 08:45; Admin Dose 20 MG; Start 10/22/18 at 09:00 Phenol (Cepastat Lozenge) 1 lozenge TID PRN MM SORE THROAT; Start 10/21/18 at 23:00 Cyanocobalamin (Vitamin B12) 1,000 mcg DAILY PO Last administered on 10/25/18 08:44; Admin Dose 1,000 MCG; Start 10/22/18 at 09:00 Levothyroxine Sodium (Synthroid) 25 mcg BEFORE BREAKFAST PO Last administered on 10/25/18 06:09; Admin Dose 25 MCG; Start 10/22/18 at 07:00 Loperamide HCl (Imodium Cap) 2 mg DAILY PRN PO DIARRHEA; Start 10/21/18 at 23:00 Metoprolol Succinate (Toprol Xl) 50 mg DAILY PO Last administered on 10/25/18 08:44; Admin Dose 50 MG; Start 10/22/18 at 09:00 Sertraline HCl (Zoloft) 100 mg DAILY PO Last administered on 10/25/18 08:44; Admin Dose 100 MG; Start 10/22/18 at 09:00 Miscellaneous Information (Pending [facility] Order For Wound Care) This patient renteria... PRN PRN XX NOTE; Start 10/22/18 at 02:30 Clotrimazole (Lotrimin Cr) 1 applic BID TOP Last administered on 10/25/18at 08:46; Admin Dose 1 APPLIC; Start 10/22/18 at 10:30 Morphine Sulfate (morphine) 6 mg Q4H PRN PO SEVERE PAIN LEVEL 7-10 Last administered on 10/23/18 08:21; Admin Dose 6 MG; Start 10/22/18 at 22:30 Enoxaparin Sodium (Lovenox) 40 mg DAILY SC Last administered on 10/25/18 08:45; Admin Dose 40 MG; Start 10/24/18 at 09:00 DEVIN ACUNA Oct 25, 2018 12:57
[2018-10-25] MEDS ORDERED: ASPIRIN 81 MG TAB PO SCH (14:30)
--- NOTE | 2018-10-25 14:30 | PDOCDIS ---
Discharge Instructions CONDITION [id number] Patient Condition: [id number] Stable HOME CARE INSTRUCTIONS: [id number] Special Diet: Iievp0e mechanical soft diet ACTIVITY: [id number] Activity Restrictions: [id number] Slowly Increase Activity FOLLOW UP/APPOINTMENTS Follow-up Plan pcp and Dr. muñoz- urology, also with cardiology GRISEL Jonas MD Oct 25, 2018 14:30
[2018-10-25] MEDS ORDERED: ASPI-831 PO (14:34)
[2018-10-25] MEDS ORDERED: CEPH500C PO (14:35)
[2018-10-25 14:56] VITALS: BP 150/68; PULSE 68; RESP 20
--- NOTE | 2018-10-25 16:07 | DS ---
DATE OF ADMISSION: 10/21/2018 DATE OF DISCHARGE: 10/25/2018 REASON FOR ADMISSION: Urinary tract infection, nephrolithiasis. HOSPITAL COURSE: The patient is a 73-year-old female with history of CVA, right hemiplegia , expressive aphasia due to her stroke, also history of hypertension, dyslipidemia, depression who pr esented from [facility] to the hospital as the patient was complaining of abdominal pain. CAT scan showed inflammation of the right renal pelvis and UPJ secondary to multi ple stone without hydronephrosis. There are multiple nonobstructing right upper pole renal calculus present. Upon evaluation, she was found to have urinary tract infection and started on antibiotic th erapy. Ultimately, blood cultures also showed coagulase negative staph, but repeat cultures were neg ative. She was started on vancomycin and ceftriaxone and urine cultures came back as E. coli sensiti ve to all cephalosporins, resistant to quinolone. The patient responded well to the antibiotic manag ement. The patient was seen by the ID doctor Dr. Calvillo and the urologist, Dr. Denise. The patient underwent cystoscopy and insertion of right ureteral JJ stent. The patient has been doing better, a febrile. CBC is normal. Basic metabolic panel is normal. The patient can be discharged. During he r stay, I called Dr. Flores as well due to patient taking Coumadin. His INR was basically normal. I t was not therapeutic as she was not taking of enough Coumadin. I discussed with the family regardin g history of AFib and they are not sure but empirically she was on Coumadin for stroke prevention, bu t in the meantime, discussed with the family we will just put her on aspirin and follow up and monito r her for AFib as rhythm here shows PVCs. DISCHARGE MEDICATIONS: The patient will be discharged with the following medications: 1. Synthroid 25 mcg daily. 2. Colace 100 b.i.d. 3. Omeprazole 20 mg daily. 4. Benazepril 20 mg daily. 5. Toprol-XL 50 mg daily. 6. Crestor 10 mg at bedtime. 7. Aspirin 81 mg daily. 8. Zoloft 200 mg daily. 9. Keflex 500 t.i.d. for 7 days, 21 tablets. FINAL DIAGNOSES: 1. Urinary tract infection. 2. Nephrolithiasis extensive on the right side, status post stent placement. 3. Hypertension. 4. Cerebrovascular accident with right hemiplegia. 5. Dyslipidemia. 6. Depression. 7. Expressive aphasia. 8. Arrhythmia, rule out atrial fibrillation. 9. Hypothyroidism. Case discussed with Kiana and other family members during this hospitalization. The patient discharg ed in stable condition. Any change in condition, to call 911. The patient is to follow up with PCP, cardiology and Dr. Denise, the urologist, as patient will require lithotripsy. Any change in condi tion, fever, chills, to call 911 or go to nearest emergency department. DIET: Two-gram sodium. ACTIVITY: As tolerated. Aspiration precautions. Dictated By: GRISEL DURANT/IMELDA Conf#: [id number] DID#: [id number]
--- NOTE | 2018-10-25 16:49 | CONS ---
Date/Time of Note Date/Time of Note DATE: 10/25/18 TIME: 16:46 Consult Date/Type/Reason Admit Date/Time Oct 21, 2018 at 20:20 Initial Consult Date 10/22/18 Type of Consultation: Urology Reason for Consultation Right renal stones Requesting Provider: GRISEL SY MD Subjective The patient is comfortable and has no pain. Objective Vital Signs Date Temp Pulse Resp B/P (MAP) Pulse Ox O2 O2 Flow FiO2 Time Delivery Rate 10/25/18 97.8 68 20 150/68 93 14:56 (95) 10/24/18 Nasal 14:30 Cannula 10/24/18 2.0 08:15 Intake and Output 10/24/18 10/24/18 10/25/18 1414:59 22:59 06:59 IntakeIntake Total 400 ml 950 ml 340 ml BalanceBalance 400 ml 950 ml 340 ml Exam Abdomen is soft and there is no abdominal mass palpable. She is incontinent of urine. The KUB shows a 5 mm stone in the right renal pelvis but it did not show the other stones in the right kidney. That would indicate that we have to do ureteroscopy and pyeloscopy and laser lithotripsy to treat the stones rather than extracorporeal shockwave lithotripsy as we cannot see all the stones to try to break them with the shockwave lithotripsy. Results/Medications Result Diagram: 10/24/18 0452 10/24/18 0452 Medications Current Medications IV Flush (NS 3 ml) 3 ml PER PROTOCOL IV ; Start 10/21/18 at 23:00 Ondansetron HCl (Zofran Inj) 4 mg Q6H PRN IV NAUSEA AND/OR VOMITING; Start 10/21/18 at 23:00 Acetaminophen (Tylenol Tab) 650 mg Q6H PRN PO PAIN LEVEL 1-3 OR FEVER; Start 10/21/18 at 23:00 Acetaminophen/ Hydrocodone Bitart ([place] (5/325)) 1 tab Q6H PRN PO MODERATE PAIN LEVEL 4-6 Last administered on 10/25/18at 11:36; Admin Dose 1 TAB; Start 10/21/18 at 23:00 Docusate Sodium (Colace) 100 mg Q12H PRN PO CONSTIPATION; Start 10/21/18 at 23:00 Pantoprazole (Protonix Tab) 40 mg DAILY@06 PO Last administered on 10/25/18 06:09; Admin Dose 40 MG; Start 10/22/18 at 06:00 Ceftriaxone Sodium 50 ml @ 100 mls/hr Q24H IVPB Last administered on 10/24/18 20:15; Admin Dose 100 MLS/HR; Start 10/22/18 at 20:00 Benazepril HCl (Lotensin) 20 mg DAILY PO Last administered on 10/25/18 08:45; Admin Dose 20 MG; Start 10/22/18 at 09:00 Phenol (Cepastat Lozenge) 1 lozenge TID PRN MM SORE THROAT; Start 10/21/18 at 23:00 Cyanocobalamin (Vitamin B12) 1,000 mcg DAILY PO Last administered on 10/25/18 08:44; Admin Dose 1,000 MCG; Start 10/22/18 at 09:00 Levothyroxine Sodium (Synthroid) 25 mcg BEFORE BREAKFAST PO Last administered on 10/25/18 06:09; Admin Dose 25 MCG; Start 10/22/18 at 07:00 Loperamide HCl (Imodium Cap) 2 mg DAILY PRN PO DIARRHEA; Start 10/21/18 at 23:00 Metoprolol Succinate (Toprol Xl) 50 mg DAILY PO Last administered on 10/25/18 08:44; Admin Dose 50 MG; Start 10/22/18 at 09:00 Sertraline HCl (Zoloft) 100 mg DAILY PO Last administered on 10/25/18 08:44; Admin Dose 100 MG; Start 10/22/18 at 09:00 Miscellaneous Information (Pending [facility] Order For Wound Care) This patient renteria... PRN PRN XX NOTE; Start 10/22/18 at 02:30 Clotrimazole (Lotrimin Cr) 1 applic BID TOP Last administered on 10/25/18 08:46; Admin Dose 1 APPLIC; Start 10/22/18 at 10:30 Morphine Sulfate (morphine) 6 mg Q4H PRN PO SEVERE PAIN LEVEL 7-10 Last administered on 10/23/18 08:21; Admin Dose 6 MG; Start 10/22/18 at 22:30 Enoxaparin Sodium (Lovenox) 40 mg DAILY SC Last administered on 10/25/18 08:45; Admin Dose 40 MG; Start 10/24/18 at 09:00 Aspirin (Aspirin) 81 mg DAILY PO Last administered on 10/25/18at 14:45; Admin Dose 81 MG; Start 10/25/18 at 14:30 Acetaminophen/ Hydrocodone Bitart ([place] (5/325)) 1 tab ONCE ONCE PO ; Start 10/25/18 at 17:00; Stop 10/25/18 at 17:01 Assessment/Plan Chief Complaint/Hosp Course 73-year-old female has a known history of stroke on 08/23/2011 resulting in right hemiplegia and expressive aphasia. She lives in an assisted living facility. He was brought to the emergency room because of right flank pain. She underwent a CT scan of the abdomen and pelvis and that showed: Urinary: There are is a 6 mm stone at the right renal pelvis and 7 mm stone directly distal to this at the UPJ and this results in wall thickening inflammation of the wall of the right renal pelvis and UPJ without hydronephrosis. There are several nonobstructing right upper pole renal calculi and the largest of these measures up to 9 mm in length. There is bilateral mild renal atrophy slightly more pronounced on the right side. No left-sided renal or ureteral stones are present. 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 A urological consultation was therefore requested. Since the patient has expressive aphasia from her stroke I called her daughter Kiana and she was very helpful in the history. The patient has been wheelchair-bound since she cannot walk or stand on her own. As she has been incontinent and managed with diapers. She can feed herself. She does have right hemiplegia. Patient underwent cystoscopy and insertion of right ureteral JJ stent on 10/23/2018. She denies any pain, she is awake and alert. She is incontinent as she has been all the time. She is being discharged today to [facility]. Their phone number is [phone]. I will schedule the patient to come back in about 3 weeks to undergo cystoscopy right ureteral pyeloscopy and laser lithotripsy. LOPEZ SON MD Oct 25, 2018 16:49
[2018-10-25] MEDS ORDERED: HYDROCODONE/APAP (5/325) TAB PO ONE (17:00)
== END 2018-10-25 18:00 | DRG 660 ==
LOC: E/R 16:58 → PP2 20:20
PROVIDERS: ADMIT Internal Medicine; ATTEND Internal Medicine
PROC: 0T768DZ Dilation of Right Ureter with Intraluminal Device, Via Natural or Artificial Opening Endoscopic (ICD-10-PCS; principal; 2018-10-23 14:00)
DX: N20.2 Calculus of kidney with calculus of ureter (principal); N10 Acute pyelonephritis; I69.351 Hemiplegia and hemiparesis following cerebral infarction affecting right dominant side; I69.320 Aphasia following cerebral infarction; I10 Essential (primary) hypertension; I48.91 Unspecified atrial fibrillation; E03.9 Hypothyroidism, unspecified; E78.00 Pure hypercholesterolemia, unspecified; B96.20 Unspecified Escherichia coli [E. coli] as the cause of diseases classified elsewhere; N13.9 Obstructive and reflux uropathy, unspecified; E66.9 Obesity, unspecified; F32.9 Major depressive disorder, single episode, unspecified; Z79.01 Long term (current) use of anticoagulants; Z98.1 Arthrodesis status; Z99.3 Dependence on wheelchair
CPT/HCPCS: 36415; 71045; 74018; 74176; 74430; 80048; 80053; 80061; 81001; 83036; 83690; 83735; 83880; 84100; 84443; 85025; 85610; 85730; 87040; 87045; 87075; 87081; 87086; 93005; 93306; 96374; 96375; C2617; J0696; J1170; J1650; J2270; J2274; J2405; J2765; J3010; J3370; J7030; J7050

== ENCOUNTER 2018-12-31 17:26 | Inpatient (IN) | payer MEDICARE, OTHER ==
[~2018-12-31] VITALS: Ht 165.1 cm; Wt 76.7 kg
[~2018-12-31 17:26] MED LIST changes: +ASPI-831 PO; +BENZ1LOZ52 MM; +BENZ28CR TP; +CEPH500C PO; -CHOL100062 PO; +CHOL200056 PO; -NITR-58 PO; -ONDA4TAB95 PO; -WARF5TAB PO
[2018-12-31] MEDS ORDERED: SOD CHLORIDE 0.45% 1,000 ML IV SCH (19:00)
[2018-12-31] MEDS ORDERED: ACETAMINOPHEN 325 MG TAB PO PRN ×2 (19:00→20:30)
[2018-12-31] MEDS ORDERED: ONDANSETRON 4 MG INJ IV PRN ×2 (19:00→20:30)
[2018-12-31] MEDS: CEFTRIAXONE 1 GM/50 ML (PMX) 50 ML IVPB SCH (19:18)
[2018-12-31] MEDS ORDERED: GABA100C14 PO (20:00)
[2018-12-31] MEDS ORDERED: CYAN100080 PO (20:01)
[2018-12-31] MEDS ORDERED: ZOLPIDEM 5 MG TAB PO PRN (20:30)
[2018-12-31] MEDS ORDERED: DOCUSATE SODIUM 100 MG CAP PO PRN (20:30)
[2018-12-31] MEDS ORDERED: MAGNESIUM HYDROXIDE 30ML CUP PO PRN (20:30)
[2018-12-31] MEDS ORDERED: morphine 2 MG INJ IV PRN (20:30)
[2018-12-31] MEDS ORDERED: LOPERAMIDE 2 MG CAP PO PRN (20:30)
[2018-12-31] MEDS ORDERED: NACL 0.9% 3 ML SYG IV SCH (20:30)
[2018-12-31 21:00] VITALS: BP 117/55; PULSE 87; RESP 20
[2018-12-31 21:47] VITALS: Ht 165.1 cm; Wt 76.7 kg
--- NOTE | 2018-12-31 22:32 | ERD ---
ER Documentation Chief Complaint Chief Complaint Sent from clinic for evaluation and pre-op for surgery in am HPI Patient is a 73-year-old female with history of kidney stone who presents with a right-sided kidney stone. She has had this for the past 2.[address] Denise sent her to the emergency department to be admitted as he needs to operate tomorrow morning. The patient is not currently on antibiotics per Dr. Denise is concern for urine infection as well. The patient has no fevers. The patient's primary doctor is Dr. John. Her urologist is Dr. Denise. ROS All systems reviewed and are negative except as per history of present illness. Medications Home Meds Active Scripts Aspirin (Aspirin) 81 Mg Chew, 81 MG PO DAILY for 30 Days, TAB Prov:GRISEL JOHN MD 10/25/18 Reported Medications Cyanocobalamin* (Vitamin B-12*) 1,000 Mcg Tablet.sa, 1000 MCG PO DAILY, TAB 12/31/18 Gabapentin* (Gabapentin*) 100 Mg Capsule, 100 MG PO DAILY, #90 CAP 12/31/18 Cholecalciferol (Vitamin D3) (Vitamin D-3) 2,000 Unit Tablet, 2000 UNIT PO DAILY, TAB 10/21/18 Rosuvastatin Calcium* (Crestor*) 10 Mg Tablet, 10 MG PO QHS, #30 TAB 06/02/18 Omeprazole* (Omeprazole*) 20 Mg Capsule.dr, 20 MG PO AC BREAKFAST, #30 CAP 06/02/18 Metoprolol Succinate* (Toprol XL*) 50 Mg Tab.er.24h, 50 MG PO DAILY, #30 TAB 06/02/18 Levothyroxine Sodium* (Levothyroxine Sodium*) 25 Mcg Tablet, 25 MCG PO BEFORE BREAKFAST, #30 TAB 06/02/18 Benazepril Hcl* (Benazepril Hcl*) 20 Mg Tablet, 20 MG PO DAILY, #30 TAB 06/02/18 Loperamide Hcl* (Loperamide Hcl*) 2 Mg Cap, 2 MG PO DAILY PRN for DIARRHEA, CAP 06/02/18 Sertraline Hcl* (Sertraline Hcl*) 100 Mg Tablet, 100 MG PO DAILY, #30 TAB 06/02/18 Acetaminophen* (Acetaminophen*) 500 MG Extra Strength Tablet, 500 MG PO Q8 PRN for PAIN AND OR ELEVATED TEMP, TAB 06/02/18 Discontinued Reported Medications Benzocaine/Resorcinol (Anti-Itch Cream) 28 Gm Cream.gm., 28 GM TP DAILY 10/21/18 Benzocaine/Menthol* (Cepacol* Sore Throat Lozenges) 1 Each Lozenge, 1 EACH MM TID PRN for SORE THROAT, LOZENGE 10/21/18 Cyanocobalamin* (Vitamin B12*) 500 Mcg Tab, 1000 MCG PO DAILY, TAB 06/02/18 Docusate Sodium* (Colace*) 100 Mg Capsule, 100 MG PO DAILY PRN for CONSTIPATION, #30 CAP 06/02/18 Menthol/Zinc Oxide (RISAMINE OINTMENT) 113 Gm Oint...g., 1 APPLIC TP DAILY 06/02/18 Discontinued Scripts Cephalexin* (Cephalexin*) 500 Mg Capsule, 500 MG PO Q8 for 7 Days, #21 CAP Prov:GRISEL JOHN MD 10/25/18 Allergies Allergies: Coded Allergies: No Known Allergy (Unverified , 12/31/18) PMhx/Soc Medical and Surgical Hx: pt denies Medical Hx, pt denies Surgical Hx History of Surgery: Yes (JJ STENT, NECK, HYSTERECTOMY) Anesthesia Reaction: No Hx Neurological Disorder: Yes (CVA WITH R SIDE WEAKNESS, APHASIA) Hx Respiratory Disorders: No Hx Cardiac Disorders: No Hx Psychiatric Problems: Yes (H/O DEPRESSION) Hx Miscellaneous Medical Probl: No Hx Alcohol Use: No Hx Substance Use: No Hx Tobacco Use: No Smoking Status: Former smoker FmHx Family History: No diabetes Physical Exam Vitals Vital Signs Date Temp Pulse Resp B/P (MAP) Pulse Ox O2 O2 Flow FiO2 Time Delivery Rate 12/31/18 98.6 92 20 115/58 100 17:53 (77) Physical Exam Const: No acute distress Head: Atraumatic Eyes: Normal Conjunctiva ENT: Normal External Ears, Nose and Mouth. Neck: Full range of motion. No meningismus. Resp: Clear to auscultation bilaterally Cardio: Regular rate and rhythm, no murmurs Abd: Soft, non tender, non distended. Normal bowel sounds Skin: No petechiae or rashes Back: No midline or flank tenderness Ext: No cyanosis, or edema Neur: Awake and alert, right-sided paralysis from previous stroke Result Diagram: 3/21/19 1911 3/21/19 1911 Procedures/MDM Patient is a 73-year-old female who presents with any stone and cystitis. The patient was given ceftriaxone per Dr. Denise. The patient will be admitted to the care of Dr. John who is her primary doctor. The patient will be admitted to a medical surgical bed. She will be operated on tomorrow. I do believe that she requires inpatient admission at this time as she is requiring surgery and has a possible infected kidney stone. Departure Diagnosis: Primary Impression: Cystitis Additional Impression: Kidney stone Condition: VANNESSA Wallace MD Dec 31, 2018 22:32
[2018-12-31] MEDS: HEPARIN 5,000 UNIT/1 ML VIAL SC SCH (22:37)
[2018-12-31] MEDS: ATORVASTATIN 40 MG TAB PO SCH (22:38)
[2019-01-01] VITALS (22 sets, daily range): BP systolic 101–177; BP diastolic 44–73; PULSE 79–113; RESP 9–36
--- NOTE | 2019-01-01 00:03 | HP ---
DATE OF ADMISSION: 12/31/2018 REASON FOR ADMISSION: Right renal stones. HISTORY OF PRESENT ILLNESS: The patient is a 73-year-old female well known to me. She has a history of CVA, right hemiplegia, expressive aphasia, hypertension, dyslipidemia, depression, who lives at [facility]. She is well known to me from previous hospitaliza tion back in October where she presented with abdominal pain. CAT scan showed right renal pelvis and UPJ stones with no evidence of hydronephrosis. She was found to have urinary tract infection, organ ism E. coli sensitive to cephalosporins. The patient underwent on 10/23/2018 cystoscopy and insertio n of right ureteral JJ stent. The patient now presents to the ER also in anticipation for surgery with Dr. Denise as the patient i s to undergo cystoscopy and right ureteropyeloscopy and laser lithotripsy. Case discussed with trisha grant at bedside. The patient overall is doing well. No specific complaints. The patient does not renteria ve any chest pain or shortness of breath. The patient will be admitted for further care. PAST MEDICAL HISTORY: Includes CVA, hypertension, right hemiplegia, expressive aphasia, depression, dyslipidemia, hypertension, hypothyroidism. ALLERGIES: NO KNOWN DRUG ALLERGIES. MEDICATIONS: Include the followin. Aspirin 81 mg daily. 2. Benazepril 20 mg daily. 3. Synthroid 25 mcg daily. 4. Loperamide as directed. 5. Metoprolol succinate 50 daily. 6. Omeprazole 20 mg daily. 7. Crestor as directed. 8. Sertraline 100 mg daily. 9. Vitamin D3 2000 daily. 10. Vitamin B12. 11. Gabapentin 100 mg. PAST SURGICAL HISTORY: As above, right stent placement, urological procedures. SOCIAL HISTORY: The patient has no history of tobacco, alcohol or IV drug use. The patient's daught er is Bette. She is at bedside. REVIEW OF SYSTEMS: Per HPI. PHYSICAL EXAMINATION: VITAL SIGNS: Temperature 98.6, pulse 87, respirations 16, blood pressure 122/53, saturation 96%. GENERAL: The patient in no acute distress, pale. CARDIOVASCULAR: S1, S2. Regular rate and rhythm. LUNGS: Clear. ABDOMEN: Soft, nontender. EXTREMITIES: No clubbing, cyanosis or edema. NEUROLOGIC: The patient with right-sided weakness. LABORATORY DATA: White count is elevated at 12.5, hemoglobin 12, hematocrit 38, platelet count 265, neutrophils 75%, lymphocytes 16%. Chemistry: Sodium is 139, potassium 4.5, chloride 101, bicarb 30, BUN is 22, creatinine 0.2, glucose of 113, AST 20, ALT 7, alk phos 119, albumin 3.7. INR is 1.2. DIAGNOSTIC STUDIES: Chest x-ray done today shows mild cardiomegaly. KUB shows right-sided double-J stent in place, 1.5 cm left kidney stone, possible 7 mm stone overlying the right kidney. Imaging tests that were done on previous hospitalization, including CT of the abdomen and pelvis at t hat time, showed there was inflammation of the right renal pelvis and UVJ secondary to multiple stone s without hydronephrosis. There were multiple nonobstructing right upper pole renal calculi also pre sent. There was bilateral mild renal atrophy, slightly more pronounced on the right. There was calc ified left renal artery aneurysm at the renal hilum. There was collapsed appearance of the colon wit hout obstruction. No visible inflammation. There was diverticulosis without diverticulitis. Mosaic attenuation of the lower lung was seen with faint ground-glass which could represent mild edema or p neumonitis. 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 This was done on 10/21/2018. Urinalysis is pending. EKG is pending as well. ASSESSMENT AND PLAN: This is a 73-year-old female with a history of cerebrovascular accide nt, right hemiplegia, hypertension, dyslipidemia, hypothyroidism, who presented for elective urologic al procedure with lithotripsy, JJ stent removal and replacement. 1. Preop, patient to undergo urological procedure which is a low-risk surgery. The patient underwen t the same procedure just 2 months ago and she was seen by Dr. Flores. Overall, patient denies any c hest pain or shortness of breath. The patient is hemodynamically stable. Follow up EKG results. No further cardiac workup is needed prior to procedure. Dr. Flores of Cardiology will follow the patie nt postoperatively. 2. History of atrial fibrillation, currently in sinus. The patient will be placed on deep venous th rombosis prophylaxis. The patient is currently on aspirin for anticoagulation. 3. Hypothyroidism. Continue Synthroid. Follow up TSH levels. 4. History of cerebrovascular accident. Control risk factors. 5. Depression. Continue Zoloft. 6. Leukocytosis. We will start the patient on Rocephin empirically as patient is at risk of UTIs. Follow up urinalysis as well and all cultures. I will follow patient closely with you. Overall, again, patient is cleared for surgery. Case discus sed with daughter. Dictated By: GRISEL DURANT/IMELDA Conf#: [id number] DID#: [id number]
[2019-01-01] MEDS: SOD CHLORIDE 0.9% 1,000 ML IV SCH ×4 (05:55→21:23)
[2019-01-01] MEDS: PANTOPRAZOLE (EC) 40 MG TAB PO SCH (06:00)
[2019-01-01] MEDS: LEVOTHYROXINE 25 MCG TAB PO SCH (06:37)
[2019-01-01] MEDS: CEFTRIAXONE 1 GM/50 ML (PMX) 50 ML IVPB SCH (08:08)
[2019-01-01] MEDS: ASPIRIN 81 MG TAB PO SCH (08:21)
[2019-01-01] MEDS: GABAPENTIN 100 MG CAP PO SCH (08:21)
[2019-01-01] MEDS: BENAZEPRIL 20 MG TAB PO SCH (08:21)
[2019-01-01] MEDS: METOPROLOL (XL) 50 MG TAB PO SCH (08:22)
[2019-01-01] MEDS: CYANOCOBALAMIN 500 MCG TAB PO SCH (08:22)
[2019-01-01] MEDS: CHOLECALCIFEROL 2,000 UNIT CAP PO SCH (08:22)
[2019-01-01] MEDS: SERTRALINE 100 MG TAB PO SCH (08:22)
[2019-01-01] MEDS: HEPARIN 5,000 UNIT/1 ML VIAL SC SCH (08:23)
--- NOTE | 2019-01-01 11:50 | PREAC ---
Date/Time of Note Date/Time of Note DATE: 01/01/19 TIME: 11:49 Anesthesia Eval and Record Evaluation Time Pre-Procedure Interview DATE: 01/01/19 TIME: 11:49 Age 73 Sex female NPO: 8 hrs Preoperative diagnosis Right renal stones. Planned procedure CYSTOSCOPY RIGHT URETEROSCOPY, LASER Past Medical History Past Medical History: Includes Cardio: HTN, Dyslipidemia Endo: Hypothyroid Neuro: CVA, Other (right hemiplegia, expressive aphasia) Psych: Depression Surgery & Anesthesia Issues No known issue Meds Anticoagulation: No Beta Bonny within 24 hr: No Reason Beta Bonny not given: Pt. not on B-Bonny Active Scripts Aspirin (Aspirin) 81 Mg Chew, 81 MG PO DAILY for 30 Days, TAB Prov:GRISEL SY MD 10/25/18 Reported Medications Cyanocobalamin* (Vitamin B-12*) 1,000 Mcg Tablet.sa, 1000 MCG PO DAILY, TAB 12/31/18 Gabapentin* (Gabapentin*) 100 Mg Capsule, 100 MG PO DAILY, #90 CAP 12/31/18 Cholecalciferol (Vitamin D3) (Vitamin D-3) 2,000 Unit Tablet, 2000 UNIT PO DAILY, TAB 10/21/18 Rosuvastatin Calcium* (Crestor*) 10 Mg Tablet, 10 MG PO QHS, #30 TAB 06/02/18 Omeprazole* (Omeprazole*) 20 Mg Capsule.dr, 20 MG PO AC BREAKFAST, #30 CAP 06/02/18 Metoprolol Succinate* (Toprol XL*) 50 Mg Tab.er.24h, 50 MG PO DAILY, #30 TAB 06/02/18 Levothyroxine Sodium* (Levothyroxine Sodium*) 25 Mcg Tablet, 25 MCG PO BEFORE BREAKFAST, #30 TAB 06/02/18 Benazepril Hcl* (Benazepril Hcl*) 20 Mg Tablet, 20 MG PO DAILY, #30 TAB 06/02/18 Loperamide Hcl* (Loperamide Hcl*) 2 Mg Cap, 2 MG PO DAILY PRN for DIARRHEA, CAP 06/02/18 Sertraline Hcl* (Sertraline Hcl*) 100 Mg Tablet, 100 MG PO DAILY, #30 TAB 06/02/18 Acetaminophen* (Acetaminophen*) 500 MG Extra Strength Tablet, 500 MG PO Q8 PRN for PAIN AND OR ELEVATED TEMP, TAB 06/02/18 Discontinued Reported Medications Benzocaine/Resorcinol (Anti-Itch Cream) 28 Gm Cream.gm., 28 GM TP DAILY 10/21/18 Benzocaine/Menthol* (Cepacol* Sore Throat Lozenges) 1 Each Lozenge, 1 EACH MM TID PRN for SORE THROAT, LOZENGE 10/21/18 Cyanocobalamin* (Vitamin B12*) 500 Mcg Tab, 1000 MCG PO DAILY, TAB 06/02/18 Docusate Sodium* (Colace*) 100 Mg Capsule, 100 MG PO DAILY PRN for CONSTIPATION, #30 CAP 06/02/18 Menthol/Zinc Oxide (RISAMINE OINTMENT) 113 Gm Oint...g., 1 APPLIC TP DAILY 06/02/18 Discontinued Scripts Cephalexin* (Cephalexin*) 500 Mg Capsule, 500 MG PO Q8 for 7 Days, #21 CAP Prov:GRISEL SY MD 10/25/18 Current Medications Ceftriaxone Sodium 50 ml @ 100 mls/hr DAILY IVPB Last administered on 01/01/19at 08:08; Admin Dose 100 MLS/HR; Start 12/31/18 at 19:00 Ondansetron HCl (Zofran Inj) 4 mg BRIDGE ORDER PRN IV NAUSEA/VOMITING; Start 12/31/18 at 19:00; Stop 01/01/19 at 18:59 Acetaminophen (Tylenol Tab) 650 mg ER BRIDGE PRN PO .MILD PAIN 1-3 OR TEMP; Start 12/31/18 at 19:00; Stop 01/01/19 at 18:59 Sodium Chloride 1,000 ml @ 75 mls/hr [id number] IV Last administered on 01/01/19at 05:55; Admin Dose 75 MLS/HR; Start 12/31/18 at 20:11 IV Flush (NS 3 ml) 3 ml PER PROTOCOL IV ; Start 12/31/18 at 20:30 Ondansetron HCl (Zofran Inj) 4 mg Q6H PRN IV NAUSEA/VOMITING; Start 12/31/18 at 20:30 Acetaminophen (Tylenol Tab) 650 mg Q6H PRN PO .PAIN 1-3 OR TEMP; Start 12/31/18 at 20:30 Acetaminophen/ Hydrocodone Bitart ([place] (5/325)) 1 tab Q6H PRN PO .MOD PAIN 4- 6; Start 12/31/18 at 20:30 Morphine Sulfate (morphine) 2 mg Q4H PRN IV .SEVERE PAIN 7-10; Start 12/31/18 at 20:30 Docusate Sodium (Colace) 100 mg Q12H PRN PO .CONSTIPATION; Start 12/31/18 at 20:30 Magnesium Hydroxide (Milk Of Mag) 30 ml DAILY PRN PO .CONSTIPATION; Start 12/31/18 at 20:30 Zolpidem Tartrate (Ambien) 5 mg QHS PRN PO .INSOMNIA; Start 12/31/18 at 20:30 Pantoprazole (Protonix Tab) 40 mg DAILY@06 PO ; Start 01/01/19 at 06:00 Heparin Sodium (Porcine) (Heparin (5000 Units/1ml)) 5,000 unit Q12 SC Last administered on 12/31/18at 22:37; Admin Dose 5,000 UNIT; Start 12/31/18 at 21:00 Aspirin (Aspirin) 81 mg DAILY PO ; Start 01/01/19 at 09:00 Benazepril HCl (Lotensin) 20 mg DAILY PO ; Start 01/01/19 at 09:00 Cyanocobalamin (Vitamin B12) 1,000 mcg DAILY PO ; Start 01/01/19 at 09:00 Gabapentin (Neurontin) 100 mg DAILY PO ; Start 01/01/19 at 09:00 Levothyroxine Sodium (Synthroid) 25 mcg BEFORE BREAKFAST PO ; Start 01/01/19 at 07:00 Loperamide HCl (Imodium Cap) 2 mg DAILY PRN PO DIARRHEA; Start 12/31/18 at 20:30 Metoprolol Succinate (Toprol Xl) 50 mg DAILY PO ; Start 01/01/19 at 09:00 Sertraline HCl (Zoloft) 100 mg DAILY PO ; Start 01/01/19 at 09:00 Cholecalciferol (Vitamin D) 2,000 unit DAILY PO ; Start 01/01/19 at 09:00 Atorvastatin Calcium (Lipitor) 40 mg QHS PO Last administered on 12/31/18at 22:38; Admin Dose 40 MG; Start 12/31/18 at 21:00 Meds reviewed: Yes Allergies Coded Allergies: No Known Allergy (Unverified , 12/31/18) Allergies Reviewed: Yes Labs/Studies Labs Reviewed: Reviewed by anesthesiologist Result Diagram: 01/01/19 0438 01/01/19 0437 Laboratory Tests 01/01/19 04:37 01/01/19 04:38 test: N/A Studies: CXR (shows mild cardiomegaly) Pre-procedure Exam Last vitals Vital Signs Date Temp Pulse Resp B/P (MAP) Pulse Ox O2 O2 Flow FiO2 Time Delivery Rate 01/01/19 98.3 84 18 131/57 93 Room Air 07:33 (81) Airway: Adequate mouth opening Mallampati: Mallampati II Teeth: Normal Lung: Normal Heart: Normal ASA Physical Status ASA physical status: 3 Emergency: None Planned Anesthetic General/MAC: ETT, LMA Pre-operative Attestations Prior to commencing anesthesia and surgery, the patient was re-evaluated, there was verification of: *The patient's identity *The results of appropriate recent lab work and preoperative vital signs *The above evaluation not changing prior to induction *Anesthetic plan, risk benefits, alternative and complications discussed with patient/family; questions answered; patient/family understands, accepts and wishes to proceed. ROBERTO VÁZQUEZ Jan 01, 2019 11:50
--- NOTE | 2019-01-01 12:29 | HPN ---
Date/Time of Note Date/Time of Note DATE: 01/01/19 TIME: 12:28 Interval H&P Admission Note Pt. seen H&P reviewed: No system changes LOPEZ SON MD Jan 01, 2019 12:29
[2019-01-01] MEDS ORDERED: LIDOCAINE 2% (SDV) 5 ML INJ ONE (12:48)
[2019-01-01] MEDS ORDERED: DESFLURANE 15 MIN ONE (12:48)
[2019-01-01] MEDS ORDERED: CEFTRIAXONE 1 GM/NS 50 ML IVPB ONE (13:30)
--- NOTE | 2019-01-01 15:16 | PN ---
DATE: 01/01/2019 The patient currently undergoing cystoscopy. Lithotripsy by Dr. Denise. Case discussed with Dr. Inderjit vazquez. PHYSICAL EXAMINATION: VITAL SIGNS: Temperature 98.3, pulse 84, respirations 18, blood pressure 131/50, saturation 93%. Th e patient again is in surgery. LABORATORIES: This morning, sodium 139, potassium 4.0, bicarbonate 30, BUN is 22, creatinine 1.06, g lucose of 99. White count 9.2, improved, hemoglobin 10, hematocrit 32, platelet count 235. Urinalys is was remarkably positive. Patient was placed on Rocephin. Urine culture is pending. MEDICATIONS: 1. Aspirin. 2. Vitamin B12. 3. Neurontin. 4. Toprol-XL. 5. Zoloft. 6. Vitamin D. 7. Synthroid. 8. Protonix. 9. Heparin. 10. Lipitor. 11. Zofran p.r.n. 12. Tylenol p.r.n. 13. Morphine. 14. [place]. 15. Colace. 16. . 17. Imodium. 18. Normal saline. 19. Ceftin. 20. Sulfa. ASSESSMENT AND PLAN: 1. This is a 73-year-old female with history of cerebrovascular, expressive aphasia, , hemipleg ia, hypertension, dyslipidemia, hypothyroidism, who presented for elective urological procedure with lithotripsy and JJ stent removal and replacement. 2. History of right-sided renal stones, status post stenting 2 months ago, now presents for lithotri psy and follow the patient postoperatively. 3. Urinary tract infection. Continue Rocephin. Follow up urine culture results. White count has i mproved. 4. Hypothyroidism. Continue Synthroid. 5. History of cardiovascular accident. Continue patient's meds. 6. Depression. Continue Zoloft. 7. Patient is placed on deep venous thrombosis prophylaxis, gastrointestinal prophylaxis. We will follow the patient with you closely. Dictated By: GRISEL DURANT/IMELDA Conf#: [id number] DID#: [id number]
--- NOTE | 2019-01-01 15:27 | PAC ---
Date/Time of Note Date/Time of Note DATE: 01/01/19 TIME: 15:27 Post-Anesthesia Notes Post-Anesthesia Note Last documented vital signs Vital Signs Date Temp Pulse Resp B/P (MAP) Pulse Ox O2 O2 Flow FiO2 Time Delivery Rate 01/01/19 98.3 84 18 131/57 93 Room Air 07:33 (81) Activity: WNL Respiratory function: WNL Cardiovascular function: WNL Mental status: Baseline Pain reasonably controlled: Yes Hydration appropriate: Yes Nausea/Vomiting absent: Yes Gentry Cai M.D. Jan 01, 2019 15:27
--- NOTE | 2019-01-01 15:31 | OPR ---
Date/Time of Note Date/Time of Note DATE: 01/01/19 TIME: 15:22 Operative Report Procedure Date: Jan 01, 2019 Preoperative Diagnosis Right renal stone Postoperative Diagnosis Same Operation/Procedure Performed Cystoscopy, right ureteral pyeloscopy, laser lithotripsy, removal and replacement of right ureteral JJ stent. Surgeon see signature line Release Engineer gem technician Vargas Anesthesia Type: general Anesthesiologist: Gentry Cai M.D. Estimated Blood Loss: minimal Transfusion none Specimen Stone fragments from the right kidney, urine culture from the bladder, urine culture from the right kidney. Grafts/Implants none Complications none Pt Condition Post Procedure: stable Disposition: PACU Indications Right renal stone and history of obstruction by the stone and pyelonephritis. Procedure Description The patient was brought to the operating room and given general endotracheal anesthesia. Timeout was done and the patient was identified by her name, birthdate, the procedure and the site of the procedure. Patient was given 1 g of ceftriaxone IV at the start of the procedure. The patient was prepped and draped in the usual sterile manner. A #21 Swedish cystoscope sheath was introduced into the bladder and urine was collected for culture and sensitivity. The distal end of the old JJ stent was grasped and pulled out to the urethral meatus then it was cut and I passed a 0.035 zip wire through the lumen of the old JJ stent and advanced it all the way to the kidney and removed the old JJ stent. Then I used a dual-lumen ureteral catheter and advanced it on the zip wire up to the kidney. Then I advanced a 0.035 sensor wire, through the second channel of the dual lumen catheter, to the kidney. The dual-lumen catheter was removed, the sensor wire was used as a safety wire, and the zip wire was used to advance on it the access sheath 11 x 13 mm diameter and 28 cm long. Then the digital flexible ureteroscope was passed through the access sheath and advanced up to the kidney. The patient did have a lot of phlegm Z necrotic and what appears to be whitish material suggestive of a yeast infection. There were also blood and blood clots in the kidney. I tried to clean these out as much as possible and flush them out. Then the stone was visualized in the kidney and I used the 200 m holmium laser fiber and broke the stone into multiple smaller pieces. I did use the basket and basketed as many of the stone fragments as possible in addition to blood clots and the purulent material from the yeast infection. I spent 2 hours on this procedure at the end of the procedure I removed the access sheath and reintroduced the cystoscope of the safety wire and inserted a 6 Swedish by 22 cm long JJ stent and had its proximal and curling into the kidney and the distal end curling into the bladder. The distal end is attached to a string that was brought out through the urethra. I then inserted a 16 Swedish Bae catheter into the bladder and inflated the balloon with 10 mL of sterile water and connected it to a drainage bag with the string of the JJ stent was then taped on the Bae catheter so I could remove the stent later on by just taking the Bae catheter out. Patient needs to be admitted to receive intravenous antibiotic and to be monitored because of the infection in her kidney and urine. LOPEZ SON MD Jan 01, 2019 15:31
[2019-01-01] MEDS ORDERED: VANCOMYCIN IV PER PHARMACY XX SCH (17:00)
--- NOTE | 2019-01-01 17:49 | CONS ---
Assessment/Plan Assessment/Plan Hospital Course (Demo Recall) 1. Nephrolithiasis 2. History of CVA 3. History of possible P-atrial fibrillation although details not clear 4. Hypertension controlled 5. Thyroid disorder 6. Aphasia 7. Dyslipidemia: On Lipitor Recommendation: Continue with the Toprol. And GHAZAL inhibitor We will check the EKG Patient is currently on aspirin. As per review of the old chart, it has been previously discussed with the family and have decided against anticoagulation and continued on aspirin only. Aggressive risk factor modification including repeat management is recommended. Thyroid supplement to be continued. Thank you for his referral. We will continue to follow along with you as needed. Consultation Date/Type/Reason Admit Date/Time Dec 31, 2018 at 18:57 Date of Consultation: Jan 01, 2019 Type of Consult Cardiology Requesting Provider: GRISEL SY MD Date/Time of Note DATE: 01/01/19 TIME: 17:40 Hx of Present Illness Interventional cardiology consultation note Chief complaint: Kidney stone Reason for consult: Cardiovascular evaluation History of present illness: Thank you for this referral. History was obtained from the patient daughter from review of the old chart discussion physician staff. Patient also noted in previous admission to the hospital , her old record was reviewed The patient is a resident 73-year-old female with a history of CVA, probably proximal atrial fibrillation right hemiplegia, expressive aphasia, hypertension, dyslipidemia, depression, who lives at [facility]. Patient was brought in and underwent cystoscopy and ureteral pyeloscopy and laser lithotripsy. Patient has aphasia and is unable to provide any history to me. According to the daughter no active new bleeding is noted. Patient was previously on Coumadin. Her INR was significantly elevated on last admission which has been adjusted but currently she is only on aspirin. Previously family has declined use of other anticoagulant such as Xarelto or Eliquis due to cost issue darell arently PAST MEDICAL HISTORY: Includes CVA, hypertension, right hemiplegia, expressive aphasia, depression, dyslipidemia, hypertension, hypothyroidism. Probably proximal atrial fibrillation ALLERGIES: NO KNOWN DRUG ALLERGIES. MEDICATIONS: Include the followin. Aspirin 81 mg daily. 2. Benazepril 20 mg daily. 3. Synthroid 25 mcg daily. 4. Loperamide as directed. 5. Metoprolol succinate 50 daily. 6. Omeprazole 20 mg daily. 7. Crestor as directed. 8. Sertraline 100 mg daily. 9. Vitamin D3 2000 daily. 10. Vitamin B12. 11. Gabapentin 100 mg. PAST SURGICAL HISTORY: As above, right stent placement, urological procedures. SOCIAL HISTORY: The patient has no history of tobacco, alcohol or IV drug use. The patient's daughter is Bette. She is at bedside. Family history: No reported history of early coronary artery disease Review of system: Patient denies all others except for above-mentioned Past Medical History Home Meds Active Scripts Aspirin (Aspirin) 81 Mg Chew, 81 MG PO DAILY for 30 Days, TAB Prov:GRISEL SY MD 10/25/18 Reported Medications Cyanocobalamin* (Vitamin B-12*) 1,000 Mcg Tablet.sa, 1000 MCG PO DAILY, TAB 12/31/18 Gabapentin* (Gabapentin*) 100 Mg Capsule, 100 MG PO DAILY, #90 CAP 12/31/18 Cholecalciferol (Vitamin D3) (Vitamin D-3) 2,000 Unit Tablet, 2000 UNIT PO DAILY, TAB 10/21/18 Rosuvastatin Calcium* (Crestor*) 10 Mg Tablet, 10 MG PO QHS, #30 TAB 06/02/18 Omeprazole* (Omeprazole*) 20 Mg Capsule.dr, 20 MG PO AC BREAKFAST, #30 CAP 06/02/18 Metoprolol Succinate* (Toprol XL*) 50 Mg Tab.er.24h, 50 MG PO DAILY, #30 TAB 06/02/18 Levothyroxine Sodium* (Levothyroxine Sodium*) 25 Mcg Tablet, 25 MCG PO BEFORE BREAKFAST, #30 TAB 06/02/18 Benazepril Hcl* (Benazepril Hcl*) 20 Mg Tablet, 20 MG PO DAILY, #30 TAB 06/02/18 Loperamide Hcl* (Loperamide Hcl*) 2 Mg Cap, 2 MG PO DAILY PRN for DIARRHEA, CAP 06/02/18 Sertraline Hcl* (Sertraline Hcl*) 100 Mg Tablet, 100 MG PO DAILY, #30 TAB 06/02/18 Acetaminophen* (Acetaminophen*) 500 MG Extra Strength Tablet, 500 MG PO Q8 PRN for PAIN AND OR ELEVATED TEMP, TAB 06/02/18 Discontinued Reported Medications Benzocaine/Resorcinol (Anti-Itch Cream) 28 Gm Cream.gm., 28 GM TP DAILY 10/21/18 Benzocaine/Menthol* (Cepacol* Sore Throat Lozenges) 1 Each Lozenge, 1 EACH MM TID PRN for SORE THROAT, LOZENGE 10/21/18 Cyanocobalamin* (Vitamin B12*) 500 Mcg Tab, 1000 MCG PO DAILY, TAB 06/02/18 Docusate Sodium* (Colace*) 100 Mg Capsule, 100 MG PO DAILY PRN for CONSTIPATION, #30 CAP 06/02/18 Menthol/Zinc Oxide (RISAMINE OINTMENT) 113 Gm Oint...g., 1 APPLIC TP DAILY 06/02/18 Discontinued Scripts Cephalexin* (Cephalexin*) 500 Mg Capsule, 500 MG PO Q8 for 7 Days, #21 CAP Prov:GRISEL SY MD 10/25/18 Medications Current Medications Ondansetron HCl (Zofran Inj) 4 mg BRIDGE ORDER PRN IV NAUSEA/VOMITING; Start 12/31/18 at 19:00; Stop 01/01/19 at 18:59 Acetaminophen (Tylenol Tab) 650 mg ER BRIDGE PRN PO .MILD PAIN 1-3 OR TEMP; Start 12/31/18 at 19:00; Stop 01/01/19 at 18:59 Sodium Chloride 1,000 ml @ 100 mls/hr Q10H IV Last administered on 01/01/19at 17:19; Admin Dose 100 MLS/HR; Start 12/31/18 at 20:11 IV Flush (NS 3 ml) 3 ml PER PROTOCOL IV ; Start 12/31/18 at 20:30 Ondansetron HCl (Zofran Inj) 4 mg Q6H PRN IV NAUSEA/VOMITING; Start 12/31/18 at 20:30 Acetaminophen (Tylenol Tab) 650 mg Q6H PRN PO .PAIN 1-3 OR TEMP; Start 12/31/18 at 20:30 Acetaminophen/ Hydrocodone Bitart ([place] (5/325)) 1 tab Q6H PRN PO .MOD PAIN 4- 6; Start 12/31/18 at 20:30 Morphine Sulfate (morphine) 2 mg Q4H PRN IV .SEVERE PAIN 7-10; Start 12/31/18 at 20:30 Docusate Sodium (Colace) 100 mg Q12H PRN PO .CONSTIPATION; Start 12/31/18 at 20:30 Magnesium Hydroxide (Milk Of Mag) 30 ml DAILY PRN PO .CONSTIPATION; Start 12/31/18 at 20:30 Zolpidem Tartrate (Ambien) 5 mg QHS PRN PO .INSOMNIA; Start 12/31/18 at 20:30 Pantoprazole (Protonix Tab) 40 mg DAILY@06 PO ; Start 01/01/19 at 06:00 Heparin Sodium (Porcine) (Heparin (5000 Units/1ml)) 5,000 unit Q12 SC Last administered on 12/31/18at 22:37; Admin Dose 5,000 UNIT; Start 12/31/18 at 21:00 Aspirin (Aspirin) 81 mg DAILY PO ; Start 01/01/19 at 09:00 Benazepril HCl (Lotensin) 20 mg DAILY PO ; Start 01/01/19 at 09:00 Cyanocobalamin (Vitamin B12) 1,000 mcg DAILY PO ; Start 01/01/19 at 09:00 Gabapentin (Neurontin) 100 mg DAILY PO ; Start 01/01/19 at 09:00 Levothyroxine Sodium (Synthroid) 25 mcg BEFORE BREAKFAST PO ; Start 01/01/19 at 07:00 Loperamide HCl (Imodium Cap) 2 mg DAILY PRN PO DIARRHEA; Start 12/31/18 at 20:30 Metoprolol Succinate (Toprol Xl) 50 mg DAILY PO ; Start 01/01/19 at 09:00 Sertraline HCl (Zoloft) 100 mg DAILY PO ; Start 01/01/19 at 09:00 Cholecalciferol (Vitamin D) 2,000 unit DAILY PO ; Start 01/01/19 at 09:00 Atorvastatin Calcium (Lipitor) 40 mg QHS PO Last administered on 12/31/18at 22:38; Admin Dose 40 MG; Start 12/31/18 at 21:00 Fluconazole (Diflucan) 100 mg DAILY PO ; Start 01/01/19 at 16:30 Piperacillin Sod/ Tazobactam Sod 100 ml @ 200 mls/hr Q6 IVPB ; Start 01/01/19 at 18:00 Vancomycin HCl (Vanco Iv Per Pharmacy) VANCOMYCIN PER PHARMACY PER PROTOCOL XX ; Start 01/01/19 at 17:00 Vancomycin HCl 1.5 gm/Sodium Chloride 250 ml @ 83.333 mls/ hr ONCE ONCE IVPB ; Start 01/01/19 at 20:00; Stop 01/01/19 at 22:59 Allergies: Coded Allergies: No Known Allergy (Unverified , 12/31/18) Past Surgical History Past Surgical Hx: other Social History Smoking Status: Former smoker Exam/Review of Systems Vital Signs Vitals Vital Signs Date Temp Pulse Resp B/P (MAP) Pulse Ox O2 O2 Flow FiO2 Time Delivery Rate 01/01/19 106 19 138/59 99 Nasal 3.0 16:55 (85) Cannula 01/01/19 99.0 15:42 Intake and Output 12/31/18 12/31/18 01/01/19 1515:00 23:00 07:00 IntakeIntake Total 730 ml BalanceBalance 730 ml Exam Exam General: no acute distress HEENT: NC/AT. pupils are equal. round. NECK: NO JVD. no stridor. CV: RRR. systolic murmur; no gallop or rubs. PULM: no wheezing or rhonchi. GI: SOFT, NT, ND, no rebound or guarding Extremity: trace B/L LE edema. no clubbing. neuro: awake and alert, however has expressive aphasia unable to make sense Psych: calm and pleasant rectal: deferred Review of the old chart showed that echocardiogram done October 23, 2018 shown: Normal left ventricular systolic function. Normal left ventricular cavity size. Normal left ventricular wall thickness. Ejection fraction is visually estimated at 55 %. Trace mitral regurgitation. Aortic valve not well visualized. Aortic sclerosis without significant stenosis. Mild aortic valve regurgitation. Tricuspid valve not well visualized. Unable to obtain RVSP due to minimal presence of tricuspid regurgitation. There is trace tricuspid regurgitation. Labs Result Diagram: 01/01/19 0438 01/01/19 0437 Results 24hrs Laboratory Tests Test 12/31/18 19:11 01/01/19 04:37 01/01/19 04:38 01/01/19 09:57 White Blood Count 12.5 #H 9.2 # Red Blood Count 4.19 L 3.53 L Hemoglobin 12.0 10.0 L Hematocrit 38.4 32.3 L Mean Corpuscular 91.6 91.5 Volume Mean Corpuscular 28.6 L 28.3 L Hemoglobin Mean Corpuscular 31.3 L 31.0 L Hemoglobin Concent Red Cell 13.0 12.8 Distribution Width Platelet Count 265 # 235 Mean Platelet Volume 9.1 9.4 Immature 0.600 H 0.700 H Granulocytes % Neutrophils % 75.4 62.6 Lymphocytes % 16.1 25.5 Monocytes % 6.9 9.8 Eosinophils % 0.8 1.2 Basophils % 0.2 0.2 Nucleated Red Blood 0.0 0.0 Cells % Immature 0.070 H 0.060 H Granulocytes # Neutrophils # 9.4 H 5.7 Lymphocytes # 2.0 2.3 Monocytes # 0.9 0.9 Eosinophils # 0.1 0.1 Basophils # 0.0 0.0 Nucleated Red Blood 0.0 0.0 Cells # Prothrombin Time 15.3 H Prothrombin Time 1.2 Ratio INR International 1.20 Normalized Ratio Activated 28.6 Partial Thromboplast Time Sodium Level 139 139 Potassium Level 4.5 4.2 Chloride Level 101 104 Carbon Dioxide Level 30 30 Anion Gap 8 5 Blood Urea Nitrogen 22 H 22 H Creatinine 1.20 H 1.06 H Est Glomerular Filtrat Rate mL/min Glucose Level 113 99 Calcium Level 9.9 9.2 Total Bilirubin 0.2 0.1 L Direct Bilirubin 0.00 0.00 Indirect Bilirubin 0.2 0.1 Aspartate Amino 20 18 Transf (AST/SGOT) Alanine 7 L 16 Aminotransferase (AL T/SGPT) Alkaline Phosphatase 119 89 Total Protein 8.2 H 6.4 # Albumin 3.7 2.8 L Globulin 4.50 H 3.60 H Albumin/Globulin 0.82 0.77 Ratio Urine Color YELLOW Urine Clarity TURBID A Urine pH 7.0 Urine Specific 1.011 [place] Urine Ketones NEGATIVE Urine Nitrite NEGATIVE Urine Bilirubin NEGATIVE Urine Urobilinogen NEGATIVE Urine Leukocyte 3+ H Esterase Urine Microscopic 19 H RBC Urine Microscopic > 182 H WBC Urine Squamous FEW Epithelial Cells Urine Bacteria FEW A Urine Yeast MANY A (Budding) Urine Hemoglobin 2+ H Urine Glucose NEGATIVE Urine Total Protein 1+ H Test 01/01/19 16:10 Lactic Acid Level 5.0 *H Medications Medications Current Medications Ondansetron HCl (Zofran Inj) 4 mg BRIDGE ORDER PRN IV NAUSEA/VOMITING; Start 12/31/18 at 19:00; Stop 01/01/19 at 18:59 Acetaminophen (Tylenol Tab) 650 mg ER BRIDGE PRN PO .MILD PAIN 1-3 OR TEMP; Start 12/31/18 at 19:00; Stop 01/01/19 at 18:59 Sodium Chloride 1,000 ml @ 100 mls/hr Q10H IV Last administered on 01/01/19at 17:19; Admin Dose 100 MLS/HR; Start 12/31/18 at 20:11 IV Flush (NS 3 ml) 3 ml PER PROTOCOL IV ; Start 12/31/18 at 20:30 Ondansetron HCl (Zofran Inj) 4 mg Q6H PRN IV NAUSEA/VOMITING; Start 12/31/18 at 20:30 Acetaminophen (Tylenol Tab) 650 mg Q6H PRN PO .PAIN 1-3 OR TEMP; Start 12/31/18 at 20:30 Acetaminophen/ Hydrocodone Bitart (Atco (5/325)) 1 tab Q6H PRN PO .MOD PAIN 4- 6; Start 12/31/18 at 20:30 Morphine Sulfate (morphine) 2 mg Q4H PRN IV .SEVERE PAIN 7-10; Start 12/31/18 at 20:30 Docusate Sodium (Colace) 100 mg Q12H PRN PO .CONSTIPATION; Start 12/31/18 at 20:30 Magnesium Hydroxide (Milk Of Mag) 30 ml DAILY PRN PO .CONSTIPATION; Start 12/31/18 at 20:30 Zolpidem Tartrate (Ambien) 5 mg QHS PRN PO .INSOMNIA; Start 12/31/18 at 20:30 Pantoprazole (Protonix Tab) 40 mg DAILY@06 PO ; Start 01/01/19 at 06:00 Heparin Sodium (Porcine) (Heparin (5000 Units/1ml)) 5,000 unit Q12 SC Last administered on 12/31/18at 22:37; Admin Dose 5,000 UNIT; Start 12/31/18 at 21:00 Aspirin (Aspirin) 81 mg DAILY PO ; Start 01/01/19 at 09:00 Benazepril HCl (Lotensin) 20 mg DAILY PO ; Start 01/01/19 at 09:00 Cyanocobalamin (Vitamin B12) 1,000 mcg DAILY PO ; Start 01/01/19 at 09:00 Gabapentin (Neurontin) 100 mg DAILY PO ; Start 01/01/19 at 09:00 Levothyroxine Sodium (Synthroid) 25 mcg BEFORE BREAKFAST PO ; Start 01/01/19 at 07:00 Loperamide HCl (Imodium Cap) 2 mg DAILY PRN PO DIARRHEA; Start 12/31/18 at 20:30 Metoprolol Succinate (Toprol Xl) 50 mg DAILY PO ; Start 01/01/19 at 09:00 Sertraline HCl (Zoloft) 100 mg DAILY PO ; Start 01/01/19 at 09:00 Cholecalciferol (Vitamin D) 2,000 unit DAILY PO ; Start 01/01/19 at 09:00 Atorvastatin Calcium (Lipitor) 40 mg QHS PO Last administered on 12/31/18at 22:38; Admin Dose 40 MG; Start 12/31/18 at 21:00 Fluconazole (Diflucan) 100 mg DAILY PO ; Start 01/01/19 at 16:30 Piperacillin Sod/ Tazobactam Sod 100 ml @ 200 mls/hr Q6 IVPB ; Start 01/01/19 at 18:00 Vancomycin HCl (Vanco Iv Per Pharmacy) VANCOMYCIN PER PHARMACY PER PROTOCOL XX ; Start 01/01/19 at 17:00 Vancomycin HCl 1.5 gm/Sodium Chloride 250 ml @ 83.333 mls/ hr ONCE ONCE IVPB ; Start 01/01/19 at 20:00; Stop 01/01/19 at 22:59 DIETER DE LEON MD Jan 01, 2019 17:49
[2019-01-01] MEDS: PIPER-TAZO 3.375 GM IV (PMX) 100 ML IVPB SCH ×2 (17:55→23:48)
[2019-01-01] MEDS: FLUCONAZOLE 100 MG TAB PO SCH (17:56)
[2019-01-01] MEDS ORDERED: VANCOMYCIN HCL 1.5 GM in SOD CHLORIDE 0.9% 250 ML IVPB ONE (20:00)
[2019-01-01] MEDS: ATORVASTATIN 40 MG TAB PO SCH (20:55)
[2019-01-01] MEDS ORDERED: SOD CHLORIDE 0.9% 500 ML IV ONE (21:30)
[2019-01-02 02:00] VITALS: BP 147/64; PULSE 99; RESP 18
[2019-01-02] MEDS: LEVOTHYROXINE 25 MCG TAB PO SCH (05:54)
[2019-01-02] MEDS: PANTOPRAZOLE (EC) 40 MG TAB PO SCH (05:54)
[2019-01-02] MEDS: PIPER-TAZO 3.375 GM IV (PMX) 100 ML IVPB SCH ×4 (05:54→23:42)
[2019-01-02] MEDS: SOD CHLORIDE 0.9% 1,000 ML IV SCH ×2 (07:23→15:34)
[2019-01-02 07:43] VITALS: BP 191/79; PULSE 72; RESP 16
[2019-01-02] MEDS: ASPIRIN 81 MG TAB PO SCH (09:03)
[2019-01-02] MEDS: CYANOCOBALAMIN 500 MCG TAB PO SCH (09:04)
[2019-01-02] MEDS: GABAPENTIN 100 MG CAP PO SCH (09:04)
[2019-01-02] MEDS: CHOLECALCIFEROL 2,000 UNIT CAP PO SCH (09:04)
[2019-01-02] MEDS: SERTRALINE 100 MG TAB PO SCH (09:04)
[2019-01-02] MEDS: FLUCONAZOLE 100 MG TAB PO SCH (09:04)
[2019-01-02] MEDS: BENAZEPRIL 20 MG TAB PO SCH (09:05)
[2019-01-02] MEDS: METOPROLOL (XL) 50 MG TAB PO SCH (09:05)
[2019-01-02 10:56] VITALS: BP 185/79; RESP 17
[2019-01-02] MEDS: AMLODIPINE 5 MG TAB PO SCH (12:12)
--- NOTE | 2019-01-02 13:44 | CONS ---
Consult Date/Type/Reason Admit Date/Time Dec 31, 2018 at 18:57 Initial Consult Date 01/01/19 Type of Consultation: Urology Reason for Consultation Right renal stones, patient is status post ureteroscopy, laser lithotripsy, removal and replacement of right ureteral JJ stent. Requesting Provider: GRISEL YS MD Date/Time of Note DATE: 01/02/19 TIME: 13:41 Subjective She is awake and alert and comfortable. Objective Vitals Vital Signs Date Temp Pulse Resp B/P (MAP) Pulse Ox O2 O2 Flow FiO2 Time Delivery Rate 01/02/19 97.8 17 185/79 98 10:56 (114) 01/02/19 72 07:43 01/01/19 Nasal 3.0 16:55 Cannula Intake and Output 01/01/19 01/01/19 01/02/19 1515:00 23:00 07:00 IntakeIntake Total 1530 ml 1660 ml 1350 ml OutputOutput Total 200 ml 700 ml BalanceBalance 1530 ml 1460 ml 650 ml Exam The Bae catheter is draining bloody urine with occasional clearance. Results/Medications Result Diagram: 01/02/19 0537 01/02/19 0537 Results 24 hrs Laboratory Tests Test 01/01/19 16:10 01/01/19 20:08 01/02/19 05:37 01/02/19 12:17 Lactic Acid Level 5.0 *H 3.6 *H 1.2 White Blood Count 9.9 Red Blood Count 3.76 L Hemoglobin 10.6 L Hematocrit 34.3 L Mean Corpuscular 91.2 Volume Mean Corpuscular 28.2 L Hemoglobin Mean Corpuscular 30.9 L Hemoglobin Concent Red Cell 12.6 Distribution Width Platelet Count 216 Mean Platelet Volume 9.3 Immature 0.700 H Granulocytes % Neutrophils % 87.4 H Lymphocytes % 9.5 L Monocytes % 2.3 Eosinophils % 0.0 Basophils % 0.1 Nucleated Red Blood 0.0 Cells % Immature 0.070 H Granulocytes # Neutrophils # 8.6 H Lymphocytes # 0.9 Monocytes # 0.2 L Eosinophils # 0.0 Basophils # 0.0 Nucleated Red Blood 0.0 Cells # Sodium Level 145 H Potassium Level 4.4 Chloride Level 111 H Carbon Dioxide Level 28 Anion Gap 6 Blood Urea Nitrogen 20 Creatinine 0.98 Est Glomerular Filtrat Rate mL/min Glucose Level 149 # Calcium Level 9.2 Phosphorus Level 3.2 Magnesium Level 2.0 Bedside Glucose 123 Home Meds Active Scripts Aspirin (Aspirin) 81 Mg Chew, 81 MG PO DAILY for 30 Days, TAB Prov:GRISEL SY MD 10/25/18 Reported Medications Cyanocobalamin* (Vitamin B-12*) 1,000 Mcg Tablet.sa, 1000 MCG PO DAILY, TAB 12/31/18 Gabapentin* (Gabapentin*) 100 Mg Capsule, 100 MG PO DAILY, #90 CAP 12/31/18 Cholecalciferol (Vitamin D3) (Vitamin D-3) 2,000 Unit Tablet, 2000 UNIT PO DAILY, TAB 10/21/18 Rosuvastatin Calcium* (Crestor*) 10 Mg Tablet, 10 MG PO QHS, #30 TAB 06/02/18 Omeprazole* (Omeprazole*) 20 Mg Capsule.dr, 20 MG PO AC BREAKFAST, #30 CAP 06/02/18 Metoprolol Succinate* (Toprol XL*) 50 Mg Tab.er.24h, 50 MG PO DAILY, #30 TAB 06/02/18 Levothyroxine Sodium* (Levothyroxine Sodium*) 25 Mcg Tablet, 25 MCG PO BEFORE BREAKFAST, #30 TAB 06/02/18 Benazepril Hcl* (Benazepril Hcl*) 20 Mg Tablet, 20 MG PO DAILY, #30 TAB 06/02/18 Loperamide Hcl* (Loperamide Hcl*) 2 Mg Cap, 2 MG PO DAILY PRN for DIARRHEA, CAP 06/02/18 Sertraline Hcl* (Sertraline Hcl*) 100 Mg Tablet, 100 MG PO DAILY, #30 TAB 06/02/18 Acetaminophen* (Acetaminophen*) 500 MG Extra Strength Tablet, 500 MG PO Q8 PRN for PAIN AND OR ELEVATED TEMP, TAB 06/02/18 Discontinued Reported Medications Benzocaine/Resorcinol (Anti-Itch Cream) 28 Gm Cream.gm., 28 GM TP DAILY 10/21/18 Benzocaine/Menthol* (Cepacol* Sore Throat Lozenges) 1 Each Lozenge, 1 EACH MM TID PRN for SORE THROAT, LOZENGE 10/21/18 Cyanocobalamin* (Vitamin B12*) 500 Mcg Tab, 1000 MCG PO DAILY, TAB 06/02/18 Docusate Sodium* (Colace*) 100 Mg Capsule, 100 MG PO DAILY PRN for CONSTIPATION, #30 CAP 06/02/18 Menthol/Zinc Oxide (RISAMINE OINTMENT) 113 Gm Oint...g., 1 APPLIC TP DAILY 06/02/18 Discontinued Scripts Cephalexin* (Cephalexin*) 500 Mg Capsule, 500 MG PO Q8 for 7 Days, #21 CAP Prov:GRISEL SY MD 10/25/18 Medications Current Medications Sodium Chloride 1,000 ml @ 100 mls/hr Q10H IV Last administered on 01/01/19at 17:19; Admin Dose 100 MLS/HR; Start 12/31/18 at 20:11 IV Flush (NS 3 ml) 3 ml PER PROTOCOL IV ; Start 12/31/18 at 20:30 Ondansetron HCl (Zofran Inj) 4 mg Q6H PRN IV NAUSEA/VOMITING; Start 12/31/18 at 20:30 Acetaminophen (Tylenol Tab) 650 mg Q6H PRN PO .PAIN 1-3 OR TEMP; Start 12/31/18 at 20:30 Acetaminophen/ Hydrocodone Bitart ([place] (5/325)) 1 tab Q6H PRN PO .MOD PAIN 4- 6; Start 12/31/18 at 20:30 Morphine Sulfate (morphine) 2 mg Q4H PRN IV .SEVERE PAIN 7-10 Last administered on 01/02/19at 02:13; Admin Dose 2 MG; Start 12/31/18 at 20:30 Docusate Sodium (Colace) 100 mg Q12H PRN PO .CONSTIPATION; Start 12/31/18 at 20:30 Magnesium Hydroxide (Milk Of Mag) 30 ml DAILY PRN PO .CONSTIPATION; Start 12/31/18 at 20:30 Zolpidem Tartrate (Ambien) 5 mg QHS PRN PO .INSOMNIA; Start 12/31/18 at 20:30 Pantoprazole (Protonix Tab) 40 mg DAILY@06 PO Last administered on 01/02/19at 05:54; Admin Dose 40 MG; Start 01/01/19 at 06:00 Heparin Sodium (Porcine) (Heparin (5000 Units/1ml)) 5,000 unit Q12 SC Last administered on 12/31/18at 22:37; Admin Dose 5,000 UNIT; Start 12/31/18 at 21:00; Status Hold Aspirin (Aspirin) 81 mg DAILY PO Last administered on 01/02/19 09:03; Admin Dose 81 MG; Start 01/01/19 at 09:00 Benazepril HCl (Lotensin) 20 mg DAILY PO Last administered on 01/02/19 09:05; Admin Dose 20 MG; Start 01/01/19 at 09:00 Cyanocobalamin (Vitamin B12) 1,000 mcg DAILY PO Last administered on 01/02/19 09:04; Admin Dose 1,000 MCG; Start 01/01/19 at 09:00 Gabapentin (Neurontin) 100 mg DAILY PO Last administered on 01/02/19 09:04; Admin Dose 100 MG; Start 01/01/19 at 09:00 Levothyroxine Sodium (Synthroid) 25 mcg BEFORE BREAKFAST PO Last administered on 01/02/19 05:54; Admin Dose 25 MCG; Start 01/01/19 at 07:00 Loperamide HCl (Imodium Cap) 2 mg DAILY PRN PO DIARRHEA; Start 12/31/18 at 20:30 Metoprolol Succinate (Toprol Xl) 50 mg DAILY PO Last administered on 01/02/19 09:05; Admin Dose 50 MG; Start 01/01/19 at 09:00 Sertraline HCl (Zoloft) 100 mg DAILY PO Last administered on 01/02/19 09:04; Admin Dose 100 MG; Start 01/01/19 at 09:00 Cholecalciferol (Vitamin D) 2,000 unit DAILY PO Last administered on 01/02/19 09:04; Admin Dose 2,000 UNIT; Start 01/01/19 at 09:00 Atorvastatin Calcium (Lipitor) 40 mg QHS PO Last administered on 01/01/19 20:55; Admin Dose 40 MG; Start 12/31/18 at 21:00 Fluconazole (Diflucan) 100 mg DAILY PO Last administered on 01/02/19 09:04; Admin Dose 100 MG; Start 01/01/19 at 16:30 Piperacillin Sod/ Tazobactam Sod 100 ml @ 200 mls/hr Q6 IVPB Last administered on 01/02/19 12:11; Admin Dose 200 MLS/HR; Start 01/01/19 at 18:00 Vancomycin HCl (Vanco Iv Per Pharmacy) VANCOMYCIN PER PHARMACY PER PROTOCOL XX ; Start 01/01/19 at 17:00 Vancomycin HCl 1.25 gm/Sodium Chloride 250 ml @ 83.333 mls/ hr Q24H IVPB ; Start 01/02/19 at 20:00 Amlodipine Besylate (Norvasc) 5 mg DAILY PO Last administered on 01/02/19at 12:12; Admin Dose 5 MG; Start 01/02/19 at 11:30 Hydralazine HCl (Apresoline) 25 mg Q6H PRN PO ELEVATED BLOOD PRESSURE; Start 01/02/19 at 11:30 Assessment/Plan Hospital Course (Demo Recall) 73-year-old female with history of kidney stones, is status post right ureteroscopy and laser lithotripsy and insertion of right ureteral JJ stent. Her kidney appeared to have a lot of infection from yeast. The urine is blood- tinged. The JJ stent has a string that is attached at the distal end and taped to the Bae catheter. We will continue her antibiotics and hydrate her. Keep the Bae catheter in until next week and at that time I will remove the Bae catheter as well as the JJ stent that is taped to it. LOPEZ SON MD Jan 02, 2019 13:44
[2019-01-02 14:44] VITALS: BP 174/72; PULSE 77; RESP 17
--- NOTE | 2019-01-02 15:11 | PN ---
DATE: 01/01/2019 SUBJECTIVE: The patient seen. The patient is status post cystoscopy, right pyeloscopy, lithotripsy and removal and placement of right ureteral JJ stent. The patient tolerated the procedur e well. Post-procedure, the patient had tachycardia and temperature of 99. I broadened the patient antibiotic coverage. Lactic acid was elevated and fluids were started. The patient is not doing muc h better. Patient lying in bed comfortably with no complaints. Case discussed extensively with Dr. Abdalla. PHYSICAL EXAMINATION: VITAL SIGNS: Temperature 98.3, pulse 84, respirations 18, blood pressure 121/57, saturation 93% on r oom air. GENERAL: No acute distress. The patient is pale. CARDIOVASCULAR: S1, S2, regular rate. LUNGS: Clear. ABDOMEN: Soft, nontender. EXTREMITIES: No clubbing, cyanosis, or edema. Patient with right-sided weakness. Bae to gravity with gross hematuria. LABORATORY DATA: White count 9.9, hemoglobin 10.6, hematocrit 34, platelet count 216, neutrophils 87 %, lymphocytes 10%. Sodium 145, potassium 4.4, chloride 111, bicarbonate 28, BUN is 20, creatinine 0 .98, glucose of 149. Lactic acid normalized to 1.2. Urinalysis was positive on admission and urine culture showed already enterococcus species greater than 100,000. Repeat urine culture was done yest otilio. MEDICATIONS: Include: 1. Vancomycin. 2. Norvasc 5 mg daily. 3. Hydralazine p.r.n. 4. Zosyn 3.375 IV q. 5. Diflucan 100 mg daily. 6. Aspirin 81 daily. 7. Lotensin 20 mg daily. 8. Vitamin B12 1000 daily. 9. Neurontin 100 t.i.d. 10. Toprol-XL 50 mg daily. 11. Zoloft 100 daily. 12. Vitamin D 2000 daily. 13. Synthroid 25 daily. 14. Potassium daily. 15. Lipitor 40 mg at bedtime. 16. Zofran p.r.n. 17. Tylenol. 18. [place]. 19. Morphine. 20. Colace. 21. Milk of magnesia. 22. Ambien. 23. Loperamide. 24. Normal saline 100 mL an hour. ASSESSMENT AND PLAN: 1. This is a 73-year-old female with history of cerebrovascular, expressive aphasia, right hemiplegia, hypertension, dyslipidemia, hypothyroidism with a right-sided stone, status post cystosc opy, lithotripsy, stent removal and placement. 2. Postoperative day #1. Continue gentle hydration, antibiotics. Monitor urine culture and urine c olor. Case discussed with Dr. Denise. 3. Hypothyroidism. Continue Synthroid. 4. History of cerebrovascular accident. Continue current medications. Vitals are stable. 6. Depression. Continue Zoloft and psych meds. 7. Continue deep vein thrombosis prophylaxis and gastrointestinal prophylaxis. 8. Infectious disease. Remains on antibacterial, antifungal medications per Dr. Denise. Plan like ly to remove the stent in a few days. 9. Hypertension. Blood pressure medication will be titrated up. Case discussed with nursing staff. We will follow. 10. Diet as tolerated. Dictated By: GRISEL DURANT/NTS Conf#: [id number] DID#: [id number] CC: DEBBI SY MD;*EndCC*
[2019-01-02] MEDS: HYDROCODONE/APAP (5/325) TAB PO PRN (18:43)
[2019-01-02 19:52] VITALS: BP 150/67; PULSE 77; RESP 18
[2019-01-02] MEDS ORDERED: VANCOMYCIN 1 GM 250 ML IVPB SCH (20:00)
[2019-01-02] MEDS: VANCOMYCIN HCL 1.25 GM in SOD CHLORIDE 0.9% 250 ML IVPB SCH (20:32)
[2019-01-02] MEDS: ATORVASTATIN 40 MG TAB PO SCH (20:32)
[2019-01-03 02:14] VITALS: BP 180/79; PULSE 87; RESP 18
[2019-01-03] MEDS: PIPER-TAZO 3.375 GM IV (PMX) 100 ML IVPB SCH ×2 (05:25→11:59)
[2019-01-03] MEDS: PANTOPRAZOLE (EC) 40 MG TAB PO SCH (05:25)
[2019-01-03] MEDS: LEVOTHYROXINE 25 MCG TAB PO SCH (05:25)
[2019-01-03 07:54] VITALS: BP 187/79; PULSE 74; RESP 18
[2019-01-03] MEDS: ASPIRIN 81 MG TAB PO SCH (08:35)
[2019-01-03] MEDS: CYANOCOBALAMIN 500 MCG TAB PO SCH (08:35)
[2019-01-03] MEDS: SERTRALINE 100 MG TAB PO SCH (08:35)
[2019-01-03] MEDS: GABAPENTIN 100 MG CAP PO SCH (08:35)
[2019-01-03] MEDS: CHOLECALCIFEROL 2,000 UNIT CAP PO SCH (08:35)
[2019-01-03] MEDS: FLUCONAZOLE 100 MG TAB PO SCH (08:35)
[2019-01-03] MEDS: METOPROLOL (XL) 50 MG TAB PO SCH (08:36)
[2019-01-03] MEDS: BENAZEPRIL 20 MG TAB PO SCH (08:36)
[2019-01-03] MEDS: AMLODIPINE 5 MG TAB PO SCH (08:36)
[2019-01-03] MEDS: SOD CHLORIDE 0.9% 1,000 ML IV SCH ×2 (09:11→12:00)
[2019-01-03] MEDS: HYDROCODONE/APAP (5/325) TAB PO PRN (13:36)
[2019-01-03 15:10] VITALS: BP 173/72; PULSE 70; RESP 19
--- NOTE | 2019-01-03 15:29 | PN ---
DATE: 01/03/2019 SUBJECTIVE: The patient was seen. Blood pressure is high. White count jumped up to 16.1. PHYSICAL EXAMINATION: VITAL SIGNS: Temperature 97.8, pulse is 74, respirations 18, blood pressure is elevated at 187/79, s aturation 96%. GENERAL: The patient is in no acute distress. HEENT: Normocephalic, atraumatic. Pale. CARDIOVASCULAR: S1, S2. Regular rate. LUNGS: Clear. ABDOMEN: Soft, nontender. EXTREMITIES: No clubbing, cyanosis or edema. GENITOURINARY: Bae to gravity has still tinge of blood. NEUROLOGIC: The patient with right-sided weakness. LABORATORY DATA: White count jumped up to 16.1, hemoglobin 9.7, hematocrit 32, platelet count is 245 , neutrophils 85%, lymphs 9%. Chemistry: Sodium 146, potassium 4.1, chloride 111, bicarbonate 28, B UN is 19, creatinine 1.02 and glucose of 130. Urine studies: Urine culture shows Enterococcus speci es and Staphylococcus species then Enterococcus which batista sensitive to Levaquin, vancomycin, Cipro. Repeat urine culture does show E. coli sensitive to imipenem, resistant to Cipro, sensitive to cephal osporins and also Strep species. MEDICATIONS: Include: 1. Vancomycin. 2. Norvasc 5 mg daily. 3. Hydralazine as directed. 4. Zosyn as directed. 5. Vancomycin as directed. 6. Diflucan 100 mg daily. 7. Aspirin 81 mg daily. 8. Lotensin 20 mg daily. 9. Vitamin B12 1000 daily. 10. Neurontin 100 daily. 11. Toprol-XL 50 mg daily. 12. Zoloft 100 daily. 13. Vitamin D 2000 daily. 14. Synthroid 25 mcg daily. 15. Protonix 500 mg daily. 16. Lipitor 40 mg at bedtime. 17. Zofran. 18. Tylenol. 19. [place]. 20. Morphine. 21. Colace. 22. Milk of Magnesia. 23. Ambien. 24. Imodium. 25. Normal saline at 70 mL an hour. ASSESSMENT AND PLAN: This is a 73-year-old female with history of cerebrovascular accident , expressive aphasia, right hemiplegia, hypertension, dyslipidemia, hypothyroidism with right-sided s tone, status post cystoscopy, lithotripsy and removal of stent and placement of a new one. 1. Postop day #2. Hep-Lock IV fluids. Continue antibiotics. May change Zosyn to Merrem. May cons ider ID consultation if white count continues to increase. 2. History of cerebrovascular accident. Continue supportive care. 3. Hypertension. Titrate medications up. 4. Depression. Continue Zoloft and psych meds. 5. Continue deep vein thrombosis prophylaxis and gastrointestinal prophylaxis. 6. The patient is tolerating diet. We will Hep-Lock IV fluids. Plan for removal of the above stent in the next few days once infection is better controlled. We bandar l follow. Case was discussed with nursing staff. Dictated By: GRISEL DURANT/IMELDA Conf#: [id number] DID#: [id number] CC: DIETER DE LEON MD;*End*
[2019-01-03] MEDS: MEROPENEM 1 GM/50ML(PMX) 50 ML IVPB SCH ×2 (15:34→20:29)
--- NOTE | 2019-01-03 16:27 | RADRPT ---
Vent Rate: 83 bpm RR Interval: 0 msec [place] Interval: 170 msec QRS Duration: 66 msec QT Interval: 412 msec QTC Interval: 484 msec P-R-T [place]: 65 - 19 - 40 degrees Normal sinus rhythm Cannot rule out Anterior infarct , age undetermined Abnormal ECG Electronically Signed By: Gabe Narvaez
--- NOTE | 2019-01-03 16:36 | CONS ---
Consult Date/Type/Reason Admit Date/Time Dec 31, 2018 at 18:57 Initial Consult Date 01/01/19 Type of Consultation: Urology Reason for Consultation Right renal stones Requesting Provider: GRISEL SY MD Date/Time of Note DATE: 01/03/19 TIME: 16:32 Subjective Patient is awake and appears to be comfortable. She keeps repeating the phrase" you can make yourself better" Objective Vitals Vital Signs Date Temp Pulse Resp B/P (MAP) Pulse Ox O2 O2 Flow FiO2 Time Delivery Rate 01/03/19 97.7 70 19 173/72 94 15:10 (105) 01/01/19 Nasal 3.0 16:55 Cannula Intake and Output 01/02/19 01/02/19 01/03/19 1515:00 23:00 07:00 IntakeIntake Total 1060 ml 880 ml 900 ml OutputOutput Total 1100 ml 600 ml BalanceBalance 1060 ml -220 ml 300 ml Exam The abdomen is soft and there is no flank tenderness. The Bae catheter is draining clear urine. Results/Medications Result Diagram: 01/03/19 0436 01/03/19 0436 Results 24 hrs Laboratory Tests Test 01/03/19 04:36 White Blood Count 16.1 #H Red Blood Count 3.43 L Hemoglobin 9.7 L Hematocrit 31.8 L Mean Corpuscular Volume 92.7 Mean Corpuscular Hemoglobin 28.3 L Mean Corpuscular Hemoglobin Concent 30.5 L Red Cell Distribution Width 12.8 Platelet Count 245 Mean Platelet Volume 9.2 Immature Granulocytes % 1.600 H Neutrophils % 84.5 H Lymphocytes % 8.6 L Monocytes % 5.2 Eosinophils % 0.0 Basophils % 0.1 Nucleated Red Blood Cells % 0.0 Immature Granulocytes # 0.250 H Neutrophils # 13.6 H Lymphocytes # 1.4 Monocytes # 0.8 Eosinophils # 0.0 Basophils # 0.0 Nucleated Red Blood Cells # 0.0 Sodium Level 146 H Potassium Level 4.1 Chloride Level 111 H Carbon Dioxide Level 28 Anion Gap 7 Blood Urea Nitrogen 19 Creatinine 1.02 H Est Glomerular Filtrat Rate mL/min Glucose Level 130 Calcium Level 9.3 Phosphorus Level 3.8 Magnesium Level 2.0 Home Meds Active Scripts Aspirin (Aspirin) 81 Mg Chew, 81 MG PO DAILY for 30 Days, TAB Prov:GRISEL SY MD 10/25/18 Reported Medications Cyanocobalamin* (Vitamin B-12*) 1,000 Mcg Tablet.sa, 1000 MCG PO DAILY, TAB 12/31/18 Gabapentin* (Gabapentin*) 100 Mg Capsule, 100 MG PO DAILY, #90 CAP 12/31/18 Cholecalciferol (Vitamin D3) (Vitamin D-3) 2,000 Unit Tablet, 2000 UNIT PO DAILY, TAB 10/21/18 Rosuvastatin Calcium* (Crestor*) 10 Mg Tablet, 10 MG PO QHS, #30 TAB 06/02/18 Omeprazole* (Omeprazole*) 20 Mg Capsule.dr, 20 MG PO AC BREAKFAST, #30 CAP 06/02/18 Metoprolol Succinate* (Toprol XL*) 50 Mg Tab.er.24h, 50 MG PO DAILY, #30 TAB 06/02/18 Levothyroxine Sodium* (Levothyroxine Sodium*) 25 Mcg Tablet, 25 MCG PO BEFORE BREAKFAST, #30 TAB 06/02/18 Benazepril Hcl* (Benazepril Hcl*) 20 Mg Tablet, 20 MG PO DAILY, #30 TAB 06/02/18 Loperamide Hcl* (Loperamide Hcl*) 2 Mg Cap, 2 MG PO DAILY PRN for DIARRHEA, CAP 06/02/18 Sertraline Hcl* (Sertraline Hcl*) 100 Mg Tablet, 100 MG PO DAILY, #30 TAB 06/02/18 Acetaminophen* (Acetaminophen*) 500 MG Extra Strength Tablet, 500 MG PO Q8 PRN for PAIN AND OR ELEVATED TEMP, TAB 06/02/18 Discontinued Reported Medications Benzocaine/Resorcinol (Anti-Itch Cream) 28 Gm Cream.gm., 28 GM TP DAILY 10/21/18 Benzocaine/Menthol* (Cepacol* Sore Throat Lozenges) 1 Each Lozenge, 1 EACH MM TID PRN for SORE THROAT, LOZENGE 10/21/18 Cyanocobalamin* (Vitamin B12*) 500 Mcg Tab, 1000 MCG PO DAILY, TAB 06/02/18 Docusate Sodium* (Colace*) 100 Mg Capsule, 100 MG PO DAILY PRN for CONSTIPATION, #30 CAP 06/02/18 Menthol/Zinc Oxide (RISAMINE OINTMENT) 113 Gm Oint...g., 1 APPLIC TP DAILY 06/02/18 Discontinued Scripts Cephalexin* (Cephalexin*) 500 Mg Capsule, 500 MG PO Q8 for 7 Days, #21 CAP Prov:GRISEL SY MD 10/25/18 Medications Current Medications IV Flush (NS 3 ml) 3 ml PER PROTOCOL IV ; Start 12/31/18 at 20:30 Ondansetron HCl (Zofran Inj) 4 mg Q6H PRN IV NAUSEA/VOMITING; Start 12/31/18 at 20:30 Acetaminophen (Tylenol Tab) 650 mg Q6H PRN PO .PAIN 1-3 OR TEMP; Start 12/31/18 at 20:30 Acetaminophen/ Hydrocodone Bitart ([place] (5/325)) 1 tab Q6H PRN PO .MOD PAIN 4- 6 Last administered on 01/03/19 13:36; Admin Dose 1 TAB; Start 12/31/18 at 20:30 Morphine Sulfate (morphine) 2 mg Q4H PRN IV .SEVERE PAIN 7-10 Last administered on 01/02/19 02:13; Admin Dose 2 MG; Start 12/31/18 at 20:30 Docusate Sodium (Colace) 100 mg Q12H PRN PO .CONSTIPATION; Start 12/31/18 at 20:30 Magnesium Hydroxide (Milk Of Mag) 30 ml DAILY PRN PO .CONSTIPATION; Start 12/31/18 at 20:30 Zolpidem Tartrate (Ambien) 5 mg QHS PRN PO .INSOMNIA Last administered on 01/02/19 20:33; Admin Dose 5 MG; Start 12/31/18 at 20:30 Pantoprazole (Protonix Tab) 40 mg DAILY@06 PO Last administered on 01/03/19 05:25; Admin Dose 40 MG; Start 01/01/19 at 06:00 Heparin Sodium (Porcine) (Heparin (5000 Units/1ml)) 5,000 unit Q12 SC Last administered on 12/31/18 22:37; Admin Dose 5,000 UNIT; Start 12/31/18 at 21:00; Status Hold Aspirin (Aspirin) 81 mg DAILY PO Last administered on 01/03/19 08:35; Admin Dose 81 MG; Start 01/01/19 at 09:00 Benazepril HCl (Lotensin) 20 mg DAILY PO Last administered on 01/03/19 08:36; Admin Dose 20 MG; Start 01/01/19 at 09:00 Cyanocobalamin (Vitamin B12) 1,000 mcg DAILY PO Last administered on 01/03/19 08:35; Admin Dose 1,000 MCG; Start 01/01/19 at 09:00 Gabapentin (Neurontin) 100 mg DAILY PO Last administered on 01/03/19 08:35; Admin Dose 100 MG; Start 01/01/19 at 09:00 Levothyroxine Sodium (Synthroid) 25 mcg BEFORE BREAKFAST PO Last administered on 01/03/19 05:25; Admin Dose 25 MCG; Start 01/01/19 at 07:00 Loperamide HCl (Imodium Cap) 2 mg DAILY PRN PO DIARRHEA; Start 12/31/18 at 20:30 Metoprolol Succinate (Toprol Xl) 50 mg DAILY PO Last administered on 01/03/19 08:36; Admin Dose 50 MG; Start 01/01/19 at 09:00 Sertraline HCl (Zoloft) 100 mg DAILY PO Last administered on 01/03/19 08:35; Admin Dose 100 MG; Start 01/01/19 at 09:00 Cholecalciferol (Vitamin D) 2,000 unit DAILY PO Last administered on 01/03/19 08:35; Admin Dose 2,000 UNIT; Start 01/01/19 at 09:00 Atorvastatin Calcium (Lipitor) 40 mg QHS PO Last administered on 01/02/19 20:32; Admin Dose 40 MG; Start 12/31/18 at 21:00 Fluconazole (Diflucan) 100 mg DAILY PO Last administered on 01/03/19 08:35; Admin Dose 100 MG; Start 01/01/19 at 16:30 Vancomycin HCl (Vanco Iv Per Pharmacy) VANCOMYCIN PER PHARMACY PER PROTOCOL XX ; Start 01/01/19 at 17:00 Vancomycin HCl 1.25 gm/Sodium Chloride 250 ml @ 83.333 mls/ hr Q24H IVPB Last administered on 01/02/19 20:32; Admin Dose 83.333 MLS/HR; Start 01/02/19 at 20:00 Hydralazine HCl (Apresoline) 25 mg Q6H PRN PO ELEVATED BLOOD PRESSURE Last administered on 01/02/19 15:34; Admin Dose 25 MG; Start 01/02/19 at 11:30 Amlodipine Besylate (Norvasc) 10 mg DAILY PO ; Start 01/04/19 at 09:00 Hydralazine HCl (Apresoline) 25 mg TID PO ; Start 01/03/19 at 21:00 Meropenem/Sodium Chloride 50 ml @ 100 mls/hr Q12 IVPB Last administered on 01/03/19at 15:34; Admin Dose 100 MLS/HR; Start 01/03/19 at 14:30 Assessment/Plan Hospital Course (Demo Recall) 73-year-old female with history of kidney stones, is status post right ure teroscopy and laser lithotripsy and insertion of right ureteral JJ stent. Her kidney appeared to have a lot of infection from yeast. The urine is now clear. The JJ stent has a string that is attached at the distal end and taped to the Bae catheter. The urine culture from the kidney did show: URINE CULTURE Preliminary Organism 1 ESCHERICHIA COLI Organism 2 GRAM NEGATIVE NATACHA COLONY COUNT 10,000 - 20,000 CFU/ml Organism 3 STREPTOCOCCUS SPECIES COLONY COUNT 20,000 - 30,000 CFU/ml E COLI E COLI M.I.C. RX M.I.C. RX --------- --- --------- --- AMIKACIN 8 S AMPICILLIN >=32 R CEFAZOLIN <=4 S CEFOTAXIME S CIPROFLOXACIN >=4 R GENTAMICIN <=1 S LEVOFLOXACIN >=8 R MEROPENEM 0.032 S NITROFURANTOIN <=16 S TOBRAMYCIN >=16 R TRIMETHOPRIM/SULFAMETHOXAZOLE <=20 S We will continue her meropenem and keep the Bae catheter in. I may take out the catheter and the JJ stent in a couple of days. LOPEZ SON MD Jan 03, 2019 16:36
[2019-01-03 19:37] VITALS: BP 136/63; PULSE 75; RESP 18
[2019-01-03] MEDS: ATORVASTATIN 40 MG TAB PO SCH (20:29)
[2019-01-03] MEDS: VANCOMYCIN HCL 1.25 GM in SOD CHLORIDE 0.9% 250 ML IVPB SCH (20:47)
[2019-01-03] MEDS: HEPARIN 5,000 UNIT/1 ML VIAL SC SCH (22:01)
[2019-01-04 02:10] VITALS: BP 142/63; PULSE 77; RESP 18
[2019-01-04] MEDS: PANTOPRAZOLE (EC) 40 MG TAB PO SCH (06:46)
[2019-01-04] MEDS: LEVOTHYROXINE 25 MCG TAB PO SCH (06:46)
[2019-01-04 07:36] VITALS: BP 163/72; PULSE 67; RESP 20
[2019-01-04] MEDS: AMLODIPINE 5 MG TAB PO SCH (09:43)
[2019-01-04] MEDS: GABAPENTIN 100 MG CAP PO SCH (09:44)
[2019-01-04] MEDS: CHOLECALCIFEROL 2,000 UNIT CAP PO SCH (09:44)
[2019-01-04] MEDS: FLUCONAZOLE 100 MG TAB PO SCH (09:44)
[2019-01-04] MEDS: ASPIRIN 81 MG TAB PO SCH (09:44)
[2019-01-04] MEDS: CYANOCOBALAMIN 500 MCG TAB PO SCH (09:44)
[2019-01-04] MEDS: BENAZEPRIL 20 MG TAB PO SCH (09:44)
[2019-01-04] MEDS: SERTRALINE 100 MG TAB PO SCH (09:45)
[2019-01-04] MEDS: MEROPENEM 1 GM/50ML(PMX) 50 ML IVPB SCH ×2 (09:45→20:51)
[2019-01-04] MEDS: METOPROLOL (XL) 50 MG TAB PO SCH (09:45)
[2019-01-04] MEDS: HEPARIN 5,000 UNIT/1 ML VIAL SC SCH ×2 (09:49→20:56)
[2019-01-04 13:39] VITALS: BP 138/64; PULSE 72; RESP 18
--- NOTE | 2019-01-04 14:40 | PN ---
DATE: 01/04/2019 SUBJECTIVE: The patient was seen, overall looks stable. White count improved from 16 to 10.9. I ap preciate Dr. Denise's input. Plan to possibly remove the stent and the Bae tomorrow. We will fol low with urology recommendations. PHYSICAL EXAMINATION: VITAL SIGNS: The patient is afebrile, temperature 97.7, pulse 67, respirations 20, blood pressure 16 3/72, saturation 98%. We are titrating her blood pressure medications up as needed. GENERAL: No acute distress. HEENT: Normocephalic, atraumatic. The patient is pale. CARDIOVASCULAR: S1, S2. Regular rate. LUNGS: Clear. ABDOMEN: Soft, nontender. EXTREMITIES: Right-sided weakness is there and chronic. NEUROLOGIC: The patient is alert and limited communication as patient repeats herself. LABORATORY DATA: White count is 10.9, hemoglobin 9.7, hematocrit 32, platelet count 229, normal diff erential. Chemistry: Sodium 145, potassium 3.7, chloride 106, bicarbonate 30, BUN 20, creatinine 0. 95 and glucose of 104. Cultures: Urine culture on 01/01/2019 showed enterococcus species, less than 10 to the 4th and alpha hemolytic strep, E. coli sensitive to Merrem, alpha hemolytic sensitive to v ancomycin. MEDICATIONS: Include: 1. Norvasc 10 mg daily. Dose was increased. 2. Hydralazine 25 t.i.d. 3. Merrem q.12. 4. Vancomycin dose per pharmacy. 5. Hydralazine as directed. 6. Diflucan 100 mg daily. 7. Aspirin 81 daily. 8. Lotensin 20 mg daily. 9. Vitamin B12 1000 daily. 10. Neurontin 100 daily. 11. Toprol-XL 50 mg daily. 12. Zoloft 100 mg daily. 13. Vitamin D 2000 daily. 14. Synthroid 25 mcg daily. 15. Potassium daily. 16. Heparin 5000 q.12. 17. Lipitor 40 at bedtime. 18. Zofran. 19. Tylenol. 20. [place]. 21. Morphine. 22. Colace. 23. Milk of Magnesia. 24. Ambien. 25. Imodium as directed. ASSESSMENT AND PLAN: This is a 73-year-old female with history of cerebrovascular accident , expressive aphasia, right hemiplegia, hypertension, dyslipidemia, hypothyroidism, right-sided stone , status post cystoscopy, lithotripsy and removal of stent and place of new one postoperative day #3. Plan to remove the stent most likely tomorrow and discontinue Bae. Continue broad spectrum antib iotics. See above cultures. May consider placing on [facility] facility for ongoing antibiotic management. 1. History of cerebrovascular accident. Continue supportive care. 2. Hypertension. Increase dose of Norvasc to 10 mg. Continue to monitor. Continue hydralazine. C ontinue Toprol-XL. 3. Infectious disease. Continue treatment for urinary tract infection with antifungals and antibact erial. 4. Depression, on Zoloft and multiple psych meds. 5. Continue deep vein thrombosis prophylaxis and gastrointestinal prophylaxis. 6. The patient is tolerating diet well. She is feeding herself with her left upper extremity. 7. Hypothyroidism. Continue Synthroid. 8. Pain control as needed. 9. Remained stable post-procedure. We will continue to follow her closely. Dictated By: GRISEL DURANT/IMELDA Conf#: [id number] DID#: [id number] CC: DIETER DE LEON MD;*EndCC*
--- NOTE | 2019-01-04 15:15 | CONS ---
Consult Date/Type/Reason Admit Date/Time Dec 31, 2018 at 18:57 Initial Consult Date 01/01/19 Type of Consultation: Urology Requesting Provider: GRISEL SY MD Date/Time of Note DATE: 01/04/19 TIME: 15:13 Subjective Interventional cardiology follow-up progress note Subjective: Case discussed with staff. Patient with no chest pain or pressure however cm ins aphasic and is unable to provide reliable history to me. No bleeding is reported Objective: General: no acute distress HEENT: NC/AT. pupils are equal. round. NECK: NO JVD. no stridor. CV: RRR. systolic murmur; no gallop or rubs. PULM: no wheezing or rhonchi. GI: SOFT, NT, ND, no rebound or guarding Extremity: trace B/L LE edema. no clubbing. neuro: awake and alert, however has expressive aphasia unable to express her thoughts Psych: calm and pleasant rectal: deferred : Status post Bae catheter in Review of the old chart showed that echocardiogram done October 23, 2018 shown: Normal left ventricular systolic function. Normal left ventricular cavity size. Normal left ventricular wall thickness. Ejection fraction is visually estimated at 55 %. Trace mitral regurgitation. Aortic valve not well visualized. Aortic sclerosis without significant stenosis. Mild aortic valve regurgitation. Tricuspid valve not well visualized. Unable to obtain RVSP due to minimal presence of tricuspid regurgitation. There is trace tricuspid regurgitation. Objective Vitals Vital Signs Date Temp Pulse Resp B/P (MAP) Pulse Ox O2 O2 Flow FiO2 Time Delivery Rate 01/04/19 97.7 72 18 138/64 96 1.0 13:39 (88) 01/01/19 Nasal 16:55 Cannula Intake and Output 01/03/19 01/03/19 01/04/19 1515:00 23:00 07:00 IntakeIntake Total 1690 ml 530 ml 250 ml OutputOutput Total 1650 ml 1000 ml BalanceBalance 1690 ml -1120 ml -750 ml Results/Medications Result Diagram: 01/04/19 0442 01/04/19 0442 Results 24 hrs Laboratory Tests Test 01/04/19 04:42 White Blood Count 10.9 #H Red Blood Count 3.44 L Hemoglobin 9.7 L Hematocrit 31.8 L Mean Corpuscular Volume 92.4 Mean Corpuscular Hemoglobin 28.2 L Mean Corpuscular Hemoglobin Concent 30.5 L Red Cell Distribution Width 13.2 Platelet Count 229 Mean Platelet Volume 9.2 Immature Granulocytes % 1.800 H Neutrophils % 67.4 Lymphocytes % 22.6 Monocytes % 6.3 Eosinophils % 1.6 Basophils % 0.3 Nucleated Red Blood Cells % 0.0 Immature Granulocytes # 0.200 H Neutrophils # 7.3 Lymphocytes # 2.5 Monocytes # 0.7 Eosinophils # 0.2 Basophils # 0.0 Nucleated Red Blood Cells # 0.0 Sodium Level 145 H Potassium Level 3.7 Chloride Level 106 Carbon Dioxide Level 30 Anion Gap 9 Blood Urea Nitrogen 20 Creatinine 0.95 Est Glomerular Filtrat Rate mL/min Glucose Level 104 Calcium Level 9.2 Phosphorus Level 4.3 Magnesium Level 1.8 Home Meds Active Scripts Aspirin (Aspirin) 81 Mg Chew, 81 MG PO DAILY for 30 Days, TAB Prov:GRISEL SY MD 10/25/18 Reported Medications Cyanocobalamin* (Vitamin B-12*) 1,000 Mcg Tablet.sa, 1000 MCG PO DAILY, TAB 12/31/18 Gabapentin* (Gabapentin*) 100 Mg Capsule, 100 MG PO DAILY, #90 CAP 12/31/18 Cholecalciferol (Vitamin D3) (Vitamin D-3) 2,000 Unit Tablet, 2000 UNIT PO DAILY, TAB 10/21/18 Rosuvastatin Calcium* (Crestor*) 10 Mg Tablet, 10 MG PO QHS, #30 TAB 06/02/18 Omeprazole* (Omeprazole*) 20 Mg Capsule.dr, 20 MG PO AC BREAKFAST, #30 CAP 06/02/18 Metoprolol Succinate* (Toprol XL*) 50 Mg Tab.er.24h, 50 MG PO DAILY, #30 TAB 06/02/18 Levothyroxine Sodium* (Levothyroxine Sodium*) 25 Mcg Tablet, 25 MCG PO BEFORE BREAKFAST, #30 TAB 06/02/18 Benazepril Hcl* (Benazepril Hcl*) 20 Mg Tablet, 20 MG PO DAILY, #30 TAB 06/02/18 Loperamide Hcl* (Loperamide Hcl*) 2 Mg Cap, 2 MG PO DAILY PRN for DIARRHEA, CAP 06/02/18 Sertraline Hcl* (Sertraline Hcl*) 100 Mg Tablet, 100 MG PO DAILY, #30 TAB 06/02/18 Acetaminophen* (Acetaminophen*) 500 MG Extra Strength Tablet, 500 MG PO Q8 PRN for PAIN AND OR ELEVATED TEMP, TAB 06/02/18 Discontinued Reported Medications Benzocaine/Resorcinol (Anti-Itch Cream) 28 Gm Cream.gm., 28 GM TP DAILY 10/21/18 Benzocaine/Menthol* (Cepacol* Sore Throat Lozenges) 1 Each Lozenge, 1 EACH MM TID PRN for SORE THROAT, LOZENGE 10/21/18 Cyanocobalamin* (Vitamin B12*) 500 Mcg Tab, 1000 MCG PO DAILY, TAB 06/02/18 Docusate Sodium* (Colace*) 100 Mg Capsule, 100 MG PO DAILY PRN for CONSTIPATION, #30 CAP 06/02/18 Menthol/Zinc Oxide (RISAMINE OINTMENT) 113 Gm Oint...g., 1 APPLIC TP DAILY 06/02/18 Discontinued Scripts Cephalexin* (Cephalexin*) 500 Mg Capsule, 500 MG PO Q8 for 7 Days, #21 CAP Prov:GRISEL SY MD 10/25/18 Medications Current Medications IV Flush (NS 3 ml) 3 ml PER PROTOCOL IV ; Start 12/31/18 at 20:30 Ondansetron HCl (Zofran Inj) 4 mg Q6H PRN IV NAUSEA/VOMITING; Start 12/31/18 at 20:30 Acetaminophen (Tylenol Tab) 650 mg Q6H PRN PO .PAIN 1-3 OR TEMP; Start 12/31/18 at 20:30 Acetaminophen/ Hydrocodone Bitart ([place] (5/325)) 1 tab Q6H PRN PO .MOD PAIN 4- 6 Last administered on 01/03/19at 13:36; Admin Dose 1 TAB; Start 12/31/18 at 20:30 Morphine Sulfate (morphine) 2 mg Q4H PRN IV .SEVERE PAIN 7-10 Last administered on 01/02/19at 02:13; Admin Dose 2 MG; Start 12/31/18 at 20:30 Docusate Sodium (Colace) 100 mg Q12H PRN PO .CONSTIPATION; Start 12/31/18 at 20:30 Magnesium Hydroxide (Milk Of Mag) 30 ml DAILY PRN PO .CONSTIPATION; Start 12/31/18 at 20:30 Zolpidem Tartrate (Ambien) 5 mg QHS PRN PO .INSOMNIA Last administered on 01/02/19 20:33; Admin Dose 5 MG; Start 12/31/18 at 20:30 Pantoprazole (Protonix Tab) 40 mg DAILY@06 PO Last administered on 01/04/19 06:46; Admin Dose 40 MG; Start 01/01/19 at 06:00 Heparin Sodium (Porcine) (Heparin (5000 Units/1ml)) 5,000 unit Q12 SC Last administered on 01/04/19 09:49; Admin Dose 5,000 UNIT; Start 12/31/18 at 21:00 Aspirin (Aspirin) 81 mg DAILY PO Last administered on 01/04/19 09:44; Admin Dose 81 MG; Start 01/01/19 at 09:00 Benazepril HCl (Lotensin) 20 mg DAILY PO Last administered on 01/04/19 09:44; Admin Dose 20 MG; Start 01/01/19 at 09:00 Cyanocobalamin (Vitamin B12) 1,000 mcg DAILY PO Last administered on 01/04/19 09:44; Admin Dose 1,000 MCG; Start 01/01/19 at 09:00 Gabapentin (Neurontin) 100 mg DAILY PO Last administered on 01/04/19 09:44; Admin Dose 100 MG; Start 01/01/19 at 09:00 Levothyroxine Sodium (Synthroid) 25 mcg BEFORE BREAKFAST PO Last administered on 01/04/19 06:46; Admin Dose 25 MCG; Start 01/01/19 at 07:00 Loperamide HCl (Imodium Cap) 2 mg DAILY PRN PO DIARRHEA; Start 12/31/18 at 20:30 Metoprolol Succinate (Toprol Xl) 50 mg DAILY PO Last administered on 01/04/19 09:45; Admin Dose 50 MG; Start 01/01/19 at 09:00 Sertraline HCl (Zoloft) 100 mg DAILY PO Last administered on 01/04/19 09:45; Admin Dose 100 MG; Start 01/01/19 at 09:00 Cholecalciferol (Vitamin D) 2,000 unit DAILY PO Last administered on 01/04/19 09:44; Admin Dose 2,000 UNIT; Start 01/01/19 at 09:00 Atorvastatin Calcium (Lipitor) 40 mg QHS PO Last administered on 3/24/19at 20:29; Admin Dose 40 MG; Start 12/31/18 at 21:00 Fluconazole (Diflucan) 100 mg DAILY PO Last administered on 01/04/19at 09:44; Admin Dose 100 MG; Start 01/01/19 at 16:30 Vancomycin HCl (Vanco Iv Per Pharmacy) VANCOMYCIN PER PHARMACY PER PROTOCOL XX ; Start 01/01/19 at 17:00 Vancomycin HCl 1.25 gm/Sodium Chloride 250 ml @ 83.333 mls/ hr Q24H IVPB Last administered on 01/03/19at 20:47; Admin Dose 83.333 MLS/HR; Start 01/02/19 at 20:00 Hydralazine HCl (Apresoline) 25 mg Q6H PRN PO ELEVATED BLOOD PRESSURE Last administered on 01/02/19at 15:34; Admin Dose 25 MG; Start 01/02/19 at 11:30 Amlodipine Besylate (Norvasc) 10 mg DAILY PO Last administered on 01/04/19at 09:43; Admin Dose 10 MG; Start 01/04/19 at 09:00 Hydralazine HCl (Apresoline) 25 mg TID PO Last administered on 01/04/19at 13:39; Admin Dose 25 MG; Start 01/03/19 at 21:00 Meropenem/Sodium Chloride 50 ml @ 100 mls/hr Q12 IVPB Last administered on 01/04/19at 09:45; Admin Dose 100 MLS/HR; Start 01/03/19 at 14:30 Miscellaneous Information (*Rx Drug Level Order Reminder*) 1 ONCE ONCE XX ; Start 01/04/19 at 19:00; Stop 01/04/19 at 19:01 Assessment/Plan Hospital Course (Demo Recall) 1. Nephrolithiasis 2. History of CVA 3. History of possible P-atrial fibrillation although details not clear and currently appears to be in sinus rhythm 4. Hypertension controlled 5. Thyroid disorder 6. Aphasia 7. Dyslipidemia: On Lipitor Recommendation: Continue with the Toprol. And GHAZAL inhibitor, amlodipine Patient is currently on aspirin. As per review of the old chart, it has been previously discussed with the family and have decided against anticoagulation and continued on aspirin only. Aggressive risk factor modification including repeat management is recommended. Thyroid supplement to be continued. Thank you for his referral. We will continue to follow along with you as needed. DIETER DE LEON MD 25, 2019 15:15
[2019-01-04 20:42] VITALS: BP 130/57; PULSE 70; RESP 18
[2019-01-04] MEDS: ATORVASTATIN 40 MG TAB PO SCH (20:50)
--- NOTE | 2019-01-04 20:56 | CONS ---
Consult Date/Type/Reason Admit Date/Time Dec 31, 2018 at 18:57 Initial Consult Date 01/01/19 Type of Consultation: Urology Reason for Consultation Kidney stones Requesting Provider: GRISEL SY MD Date/Time of Note DATE: 01/04/19 TIME: 20:54 Subjective The patient appears to be much more alert and comfortable. Objective Vitals Vital Signs Date Temp Pulse Resp B/P (MAP) Pulse Ox O2 O2 Flow FiO2 Time Delivery Rate 01/04/19 98.5 70 18 130/57 95 20:42 (81) 01/04/19 1.0 13:39 01/04/19 Nasal 09:00 Cannula Intake and Output 01/03/19 01/03/19 01/04/19 1515:00 23:00 07:00 IntakeIntake Total 1690 ml 530 ml 250 ml OutputOutput Total 1650 ml 1000 ml BalanceBalance 1690 ml -1120 ml -750 ml Exam Her abdomen is soft there is no flank tenderness Results/Medications Result Diagram: 01/04/19 0442 01/04/19 0442 Results 24 hrs Laboratory Tests Test 01/04/19 04:42 01/04/19 19:08 White Blood Count 10.9 #H Red Blood Count 3.44 L Hemoglobin 9.7 L Hematocrit 31.8 L Mean Corpuscular Volume 92.4 Mean Corpuscular Hemoglobin 28.2 L Mean Corpuscular Hemoglobin Concent 30.5 L Red Cell Distribution Width 13.2 Platelet Count 229 Mean Platelet Volume 9.2 Immature Granulocytes % 1.800 H Neutrophils % 67.4 Lymphocytes % 22.6 Monocytes % 6.3 Eosinophils % 1.6 Basophils % 0.3 Nucleated Red Blood Cells % 0.0 Immature Granulocytes # 0.200 H Neutrophils # 7.3 Lymphocytes # 2.5 Monocytes # 0.7 Eosinophils # 0.2 Basophils # 0.0 Nucleated Red Blood Cells # 0.0 Sodium Level 145 H Potassium Level 3.7 Chloride Level 106 Carbon Dioxide Level 30 Anion Gap 9 Blood Urea Nitrogen 20 Creatinine 0.95 Est Glomerular Filtrat Rate mL/min Glucose Level 104 Calcium Level 9.2 Phosphorus Level 4.3 Magnesium Level 1.8 Vancomycin Level Trough 21.0 *H Home Meds Active Scripts Aspirin (Aspirin) 81 Mg Chew, 81 MG PO DAILY for 30 Days, TAB Prov:GRISEL SY MD 10/25/18 Reported Medications Cyanocobalamin* (Vitamin B-12*) 1,000 Mcg Tablet.sa, 1000 MCG PO DAILY, TAB 12/31/18 Gabapentin* (Gabapentin*) 100 Mg Capsule, 100 MG PO DAILY, #90 CAP 12/31/18 Cholecalciferol (Vitamin D3) (Vitamin D-3) 2,000 Unit Tablet, 2000 UNIT PO DAILY, TAB 10/21/18 Rosuvastatin Calcium* (Crestor*) 10 Mg Tablet, 10 MG PO QHS, #30 TAB 06/02/18 Omeprazole* (Omeprazole*) 20 Mg Capsule.dr, 20 MG PO AC BREAKFAST, #30 CAP 06/02/18 Metoprolol Succinate* (Toprol XL*) 50 Mg Tab.er.24h, 50 MG PO DAILY, #30 TAB 06/02/18 Levothyroxine Sodium* (Levothyroxine Sodium*) 25 Mcg Tablet, 25 MCG PO BEFORE BREAKFAST, #30 TAB 06/02/18 Benazepril Hcl* (Benazepril Hcl*) 20 Mg Tablet, 20 MG PO DAILY, #30 TAB 06/02/18 Loperamide Hcl* (Loperamide Hcl*) 2 Mg Cap, 2 MG PO DAILY PRN for DIARRHEA, CAP 06/02/18 Sertraline Hcl* (Sertraline Hcl*) 100 Mg Tablet, 100 MG PO DAILY, #30 TAB 06/02/18 Acetaminophen* (Acetaminophen*) 500 MG Extra Strength Tablet, 500 MG PO Q8 PRN for PAIN AND OR ELEVATED TEMP, TAB 06/02/18 Discontinued Reported Medications Benzocaine/Resorcinol (Anti-Itch Cream) 28 Gm Cream.gm., 28 GM TP DAILY 10/21/18 Benzocaine/Menthol* (Cepacol* Sore Throat Lozenges) 1 Each Lozenge, 1 EACH MM TID PRN for SORE THROAT, LOZENGE 10/21/18 Cyanocobalamin* (Vitamin B12*) 500 Mcg Tab, 1000 MCG PO DAILY, TAB 06/02/18 Docusate Sodium* (Colace*) 100 Mg Capsule, 100 MG PO DAILY PRN for CONSTIPATION, #30 CAP 06/02/18 Menthol/Zinc Oxide (RISAMINE OINTMENT) 113 Gm Oint...g., 1 APPLIC TP DAILY 8/21/18 Discontinued Scripts Cephalexin* (Cephalexin*) 500 Mg Capsule, 500 MG PO Q8 for 7 Days, #21 CAP Prov:GRISEL SY MD 10/25/18 Medications Current Medications IV Flush (NS 3 ml) 3 ml PER PROTOCOL IV ; Start 12/31/18 at 20:30 Ondansetron HCl (Zofran Inj) 4 mg Q6H PRN IV NAUSEA/VOMITING; Start 12/31/18 at 20:30 Acetaminophen (Tylenol Tab) 650 mg Q6H PRN PO .PAIN 1-3 OR TEMP; Start 12/31/18 at 20:30 Acetaminophen/ Hydrocodone Bitart ([place] (5/325)) 1 tab Q6H PRN PO .MOD PAIN 4- 6 Last administered on 01/03/19 13:36; Admin Dose 1 TAB; Start 12/31/18 at 20:30 Morphine Sulfate (morphine) 2 mg Q4H PRN IV .SEVERE PAIN 7-10 Last administered on 01/02/19 02:13; Admin Dose 2 MG; Start 12/31/18 at 20:30 Docusate Sodium (Colace) 100 mg Q12H PRN PO .CONSTIPATION; Start 12/31/18 at 20:30 Magnesium Hydroxide (Milk Of Mag) 30 ml DAILY PRN PO .CONSTIPATION; Start 12/31/18 at 20:30 Zolpidem Tartrate (Ambien) 5 mg QHS PRN PO .INSOMNIA Last administered on 01/02/19 20:33; Admin Dose 5 MG; Start 12/31/18 at 20:30 Pantoprazole (Protonix Tab) 40 mg DAILY@06 PO Last administered on 01/04/19 06:46; Admin Dose 40 MG; Start 01/01/19 at 06:00 Heparin Sodium (Porcine) (Heparin (5000 Units/1ml)) 5,000 unit Q12 SC Last administered on 01/04/19 09:49; Admin Dose 5,000 UNIT; Start 12/31/18 at 21:00 Aspirin (Aspirin) 81 mg DAILY PO Last administered on 01/04/19 09:44; Admin Dose 81 MG; Start 01/01/19 at 09:00 Benazepril HCl (Lotensin) 20 mg DAILY PO Last administered on 01/04/19 09:44; Admin Dose 20 MG; Start 01/01/19 at 09:00 Cyanocobalamin (Vitamin B12) 1,000 mcg DAILY PO Last administered on 01/04/19 09:44; Admin Dose 1,000 MCG; Start 01/01/19 at 09:00 Gabapentin (Neurontin) 100 mg DAILY PO Last administered on 01/04/19 09:44; Admin Dose 100 MG; Start 01/01/19 at 09:00 Levothyroxine Sodium (Synthroid) 25 mcg BEFORE BREAKFAST PO Last administered on 01/04/19 06:46; Admin Dose 25 MCG; Start 01/01/19 at 07:00 Loperamide HCl (Imodium Cap) 2 mg DAILY PRN PO DIARRHEA; Start 12/31/18 at 20: 30 Metoprolol Succinate (Toprol Xl) 50 mg DAILY PO Last administered on 01/04/19 09:45; Admin Dose 50 MG; Start 01/01/19 at 09:00 Sertraline HCl (Zoloft) 100 mg DAILY PO Last administered on 01/04/19 09:45; Admin Dose 100 MG; Start 01/01/19 at 09:00 Cholecalciferol (Vitamin D) 2,000 unit DAILY PO Last administered on 01/04/19 09:44; Admin Dose 2,000 UNIT; Start 01/01/19 at 09:00 Atorvastatin Calcium (Lipitor) 40 mg QHS PO Last administered on 01/03/19 20:29; Admin Dose 40 MG; Start 12/31/18 at 21:00 Fluconazole (Diflucan) 100 mg DAILY PO Last administered on 01/04/19 09:44; Admin Dose 100 MG; Start 01/01/19 at 16:30 Vancomycin HCl (Vanco Iv Per Pharmacy) VANCOMYCIN PER PHARMACY PER PROTOCOL XX ; Start 01/01/19 at 17:00 Hydralazine HCl (Apresoline) 25 mg Q6H PRN PO ELEVATED BLOOD PRESSURE Last administered on 01/02/19 15:34; Admin Dose 25 MG; Start 01/02/19 at 11:30 Amlodipine Besylate (Norvasc) 10 mg DAILY PO Last administered on 01/04/19 09:43; Admin Dose 10 MG; Start 01/04/19 at 09:00 Hydralazine HCl (Apresoline) 25 mg TID PO Last administered on 3/25/19at 13:39; Admin Dose 25 MG; Start 01/03/19 at 21:00 Meropenem/Sodium Chloride 50 ml @ 100 mls/hr Q12 IVPB Last administered on 01/04/19at 09:45; Admin Dose 100 MLS/HR; Start 01/03/19 at 14:30 Assessment/Plan Hospital Course (Demo Recall) 73-year-old female with history of kidney stones, is status post right ureteroscopy and laser lithotripsy and insertion of right ureteral JJ stent. Her kidney appeared to have a lot of infection from yeast. The urine is now clear. The JJ stent has a string that is attached at the distal end and taped to the Bae catheter. The urine culture from the kidney did show: URINE CULTURE Preliminary Organism 1 ESCHERICHIA COLI Organism 2 GRAM NEGATIVE NATACHA COLONY COUNT 10,000 - 20,000 CFU/ml Organism 3 STREPTOCOCCUS SPECIES COLONY COUNT 20,000 - 30,000 CFU/ml E COLI E COLI M.I.C. RX M.I.C. RX --------- --- --------- --- AMIKACIN 8 S AMPICILLIN >=32 R CEFAZOLIN <=4 S CEFOTAXIME S CIPROFLOXACIN >=4 R GENTAMICIN <=1 S LEVOFLOXACIN >=8 R MEROPENEM 0.032 S NITROFURANTOIN <=16 S TOBRAMYCIN >=16 R TRIMETHOPRIM/SULFAMETHOXAZOLE <=20 S We will continue her meropenem and keep the Bae catheter in. I may take out the catheter and the JJ stent in a couple of days. LOPEZ SON MD Jan 04, 2019 20:56
[2019-01-05] MEDS: VANCOMYCIN 750 MG (PMX) 250 ML IVPB SCH (00:33)
[2019-01-05 02:13] VITALS: BP 113/57; PULSE 77; RESP 18
[2019-01-05] MEDS: PANTOPRAZOLE (EC) 40 MG TAB PO SCH (05:41)
[2019-01-05] MEDS: LEVOTHYROXINE 25 MCG TAB PO SCH (05:41)
[2019-01-05 07:27] VITALS: BP 118/56; PULSE 72; RESP 17
--- NOTE | 2019-01-05 08:34 | CONS ---
Consult Date/Type/Reason Admit Date/Time Dec 31, 2018 at 18:57 Initial Consult Date 01/01/19 Type of Consultation: Urology Reason for Consultation Right renal stones Requesting Provider: GRISEL SY MD Date/Time of Note DATE: 01/05/19 TIME: 08:32 Subjective Patient is more comfortable and denies any pain Objective Vitals Vital Signs Date Temp Pulse Resp B/P (MAP) Pulse Ox O2 O2 Flow FiO2 Time Delivery Rate 01/05/19 98.0 72 17 118/56 97 Room Air 07:27 (76) 01/04/19 1.0 13:39 Intake and Output 01/04/19 01/04/19 01/05/19 1515:00 23:00 07:00 IntakeIntake Total 1130 ml 290 ml 368 ml OutputOutput Total 900 ml 800 ml BalanceBalance 1130 ml -610 ml -432 ml Exam Bae catheter is draining clear urine Results/Medications Result Diagram: 01/05/19 0430 01/05/19 0430 Results 24 hrs Laboratory Tests Test 01/04/19 19:08 01/05/19 04:30 Vancomycin Level Trough 21.0 *H White Blood Count 9.7 Red Blood Count 3.61 L Hemoglobin 10.2 L Hematocrit 33.0 L Mean Corpuscular Volume 91.4 Mean Corpuscular Hemoglobin 28.3 L Mean Corpuscular Hemoglobin Concent 30.9 L Red Cell Distribution Width 13.2 Platelet Count 221 Mean Platelet Volume 9.2 Immature Granulocytes % 1.200 H Neutrophils % 61.7 Lymphocytes % 26.4 Monocytes % 6.8 Eosinophils % 3.6 Basophils % 0.3 Nucleated Red Blood Cells % 0.0 Immature Granulocytes # 0.120 H Neutrophils # 6.0 Lymphocytes # 2.6 Monocytes # 0.7 Eosinophils # 0.4 Basophils # 0.0 Nucleated Red Blood Cells # 0.0 Sodium Level 142 Potassium Level 3.8 Chloride Level 106 Carbon Dioxide Level 32 H Anion Gap 4 L Blood Urea Nitrogen 19 Creatinine 0.90 Est Glomerular Filtrat Rate mL/min Glucose Level 90 Calcium Level 9.1 Phosphorus Level 3.5 Magnesium Level 1.8 Home Meds Active Scripts Aspirin (Aspirin) 81 Mg Chew, 81 MG PO DAILY for 30 Days, TAB Prov:GRISEL SY MD 10/25/18 Reported Medications Cyanocobalamin* (Vitamin B-12*) 1,000 Mcg Tablet.sa, 1000 MCG PO DAILY, TAB 12/31/18 Gabapentin* (Gabapentin*) 100 Mg Capsule, 100 MG PO DAILY, #90 CAP 12/31/18 Cholecalciferol (Vitamin D3) (Vitamin D-3) 2,000 Unit Tablet, 2000 UNIT PO DAILY, TAB 10/21/18 Rosuvastatin Calcium* (Crestor*) 10 Mg Tablet, 10 MG PO QHS, #30 TAB 06/02/18 Omeprazole* (Omeprazole*) 20 Mg Capsule.dr, 20 MG PO AC BREAKFAST, #30 CAP 06/02/18 Metoprolol Succinate* (Toprol XL*) 50 Mg Tab.er.24h, 50 MG PO DAILY, #30 TAB 06/02/18 Levothyroxine Sodium* (Levothyroxine Sodium*) 25 Mcg Tablet, 25 MCG PO BEFORE BREAKFAST, #30 TAB 06/02/18 Benazepril Hcl* (Benazepril Hcl*) 20 Mg Tablet, 20 MG PO DAILY, #30 TAB 06/02/18 Loperamide Hcl* (Loperamide Hcl*) 2 Mg Cap, 2 MG PO DAILY PRN for DIARRHEA, CAP 06/02/18 Sertraline Hcl* (Sertraline Hcl*) 100 Mg Tablet, 100 MG PO DAILY, #30 TAB 06/02/18 Acetaminophen* (Acetaminophen*) 500 MG Extra Strength Tablet, 500 MG PO Q8 PRN for PAIN AND OR ELEVATED TEMP, TAB 06/02/18 Discontinued Reported Medications Benzocaine/Resorcinol (Anti-Itch Cream) 28 Gm Cream.gm., 28 GM TP DAILY 10/21/18 Benzocaine/Menthol* (Cepacol* Sore Throat Lozenges) 1 Each Lozenge, 1 EACH MM TID PRN for SORE THROAT, LOZENGE 10/21/18 Cyanocobalamin* (Vitamin B12*) 500 Mcg Tab, 1000 MCG PO DAILY, TAB 06/02/18 Docusate Sodium* (Colace*) 100 Mg Capsule, 100 MG PO DAILY PRN for CONSTIPATION, #30 CAP 06/02/18 Menthol/Zinc Oxide (RISAMINE OINTMENT) 113 Gm Oint...g., 1 APPLIC TP DAILY 06/02/18 Discontinued Scripts Cephalexin* (Cephalexin*) 500 Mg Capsule, 500 MG PO Q8 for 7 Days, #21 CAP Prov:GRISEL SY MD 10/25/18 Medications Current Medications IV Flush (NS 3 ml) 3 ml PER PROTOCOL IV ; Start 12/31/18 at 20:30 Ondansetron HCl (Zofran Inj) 4 mg Q6H PRN IV NAUSEA/VOMITING; Start 12/31/18 at 20:30 Acetaminophen (Tylenol Tab) 650 mg Q6H PRN PO .PAIN 1-3 OR TEMP; Start 12/31/18 at 20:30 Acetaminophen/ Hydrocodone Bitart ([place] (5/325)) 1 tab Q6H PRN PO .MOD PAIN 4- 6 Last administered on 01/03/19 13:36; Admin Dose 1 TAB; Start 12/31/18 at 20:3 0 Morphine Sulfate (morphine) 2 mg Q4H PRN IV .SEVERE PAIN 7-10 Last administered on 01/02/19 02:13; Admin Dose 2 MG; Start 12/31/18 at 20:30 Docusate Sodium (Colace) 100 mg Q12H PRN PO .CONSTIPATION; Start 12/31/18 at 20:30 Magnesium Hydroxide (Milk Of Mag) 30 ml DAILY PRN PO .CONSTIPATION; Start 12/31/18 at 20:30 Zolpidem Tartrate (Ambien) 5 mg QHS PRN PO .INSOMNIA Last administered on 01/02 20:33; Admin Dose 5 MG; Start 12/31/18 at 20:30 Pantoprazole (Protonix Tab) 40 mg DAILY@06 PO Last administered on 01/05/19 05:41; Admin Dose 40 MG; Start 01/01/19 at 06:00 Heparin Sodium (Porcine) (Heparin (5000 Units/1ml)) 5,000 unit Q12 SC Last administered on 01/04/19 20:56; Admin Dose 5,000 UNIT; Start 12/31/18 at 21:00 Aspirin (Aspirin) 81 mg DAILY PO Last administered on 01/04/19 09:44; Admin Dose 81 MG; Start 01/01/19 at 09:00 Benazepril HCl (Lotensin) 20 mg DAILY PO Last administered on 01/04/19 09:44; Admin Dose 20 MG; Start 01/01/19 at 09:00 Cyanocobalamin (Vitamin B12) 1,000 mcg DAILY PO Last administered on 01/04/19 09:44; Admin Dose 1,000 MCG; Start 01/01/19 at 09:00 Gabapentin (Neurontin) 100 mg DAILY PO Last administered on 01/04/19 09:44; Admin Dose 100 MG; Start 01/01/19 at 09:00 Levothyroxine Sodium (Synthroid) 25 mcg BEFORE BREAKFAST PO Last administered on 01/05/19 05:41; Admin Dose 25 MCG; Start 01/01/19 at 07:00 Loperamide HCl (Imodium Cap) 2 mg DAILY PRN PO DIARRHEA; Start 12/31/18 at 20:30 Metoprolol Succinate (Toprol Xl) 50 mg DAILY PO Last administered on 01/04/19 09:45; Admin Dose 50 MG; Start 01/01/19 at 09:00 Sertraline HCl (Zoloft) 100 mg DAILY PO Last administered on 01/04/19 09:45; Admin Dose 100 MG; Start 01/01/19 at 09:00 Cholecalciferol (Vitamin D) 2,000 unit DAILY PO Last administered on 01/04/19 09:44; Admin Dose 2,000 UNIT; Start 01/01/19 at 09:00 Atorvastatin Calcium (Lipitor) 40 mg QHS PO Last administered on 01/04/19 20:50; Admin Dose 40 MG; Start 12/31/18 at 21:00 Fluconazole (Diflucan) 100 mg DAILY PO Last administered on 01/04/19 09:44; Admin Dose 100 MG; Start 01/01/19 at 16:30 Vancomycin HCl (Vanco Iv Per Pharmacy) VANCOMYCIN PER PHARMACY PER PROTOCOL XX ; Start 01/01/19 at 17:00 Hydralazine HCl (Apresoline) 25 mg Q6H PRN PO ELEVATED BLOOD PRESSURE Last administered on 01/02/19 15:34; Admin Dose 25 MG; Start 01/02/19 at 11:30 Amlodipine Besylate (Norvasc) 10 mg DAILY PO Last administered on 01/04/19 09:43; Admin Dose 10 MG; Start 01/04/19 at 09:00 Hydralazine HCl (Apresoline) 25 mg TID PO Last administered on 01/04/19 20:51; Admin Dose 25 MG; Start 01/03/19 at 21:00 Meropenem/Sodium Chloride 50 ml @ 100 mls/hr Q12 IVPB Last administered on 01/04/19at 20:51; Admin Dose 100 MLS/HR; Start 01/03/19 at 14:30 Vancomycin/Sodium Chloride 250 ml @ 125 mls/hr Q24H IVPB Last administered on 01/05/19at 00:33; Admin Dose 125 MLS/HR; Start 01/05/19 at 00:00 Assessment/Plan Hospital Course (Demo Recall) 73-year-old female with history of kidney stones, is status post right ureteroscopy and laser lithotripsy and insertion of right ureteral JJ stent. Her kidney appeared to have a lot of infection from yeast. The urine is now clear. The JJ stent has a string that is attached at the distal end and taped to the Bae catheter. The urine culture from the kidney did show: URINE CULTURE Preliminary Organism 1 ESCHERICHIA COLI Organism 2 GRAM NEGATIVE NATACHA COLONY COUNT 10,000 - 20,000 CFU/ml Organism 3 STREPTOCOCCUS SPECIES COLONY COUNT 20,000 - 30,000 CFU/ml E COLI E COLI M.I.C. RX M.I.C. RX --------- --- --------- --- AMIKACIN 8 S AMPICILLIN >=32 R CEFAZOLIN <=4 S CEFOTAXIME S CIPROFLOXACIN >=4 R GENTAMICIN <=1 S LEVOFLOXACIN >=8 R MEROPENEM 0.032 S NITROFURANTOIN <=16 S TOBRAMYCIN >=16 R TRIMETHOPRIM/SULFAMETHOXAZOLE <=20 S She also does have enterococcus. We will continue her meropenem and vancomycin and keep the Bae catheter in. I will take out the catheter and the JJ stent in am LOPEZ SON MD Jan 05, 2019 08:34
[2019-01-05] MEDS: MEROPENEM 1 GM/50ML(PMX) 50 ML IVPB SCH ×2 (09:39→20:32)
[2019-01-05] MEDS: BENAZEPRIL 20 MG TAB PO SCH (09:40)
[2019-01-05] MEDS: SERTRALINE 100 MG TAB PO SCH (09:40)
[2019-01-05] MEDS: CYANOCOBALAMIN 500 MCG TAB PO SCH (09:41)
[2019-01-05] MEDS: FLUCONAZOLE 100 MG TAB PO SCH (09:41)
[2019-01-05] MEDS: METOPROLOL (XL) 50 MG TAB PO SCH (09:41)
[2019-01-05] MEDS: CHOLECALCIFEROL 2,000 UNIT CAP PO SCH (09:42)
[2019-01-05] MEDS: GABAPENTIN 100 MG CAP PO SCH (09:42)
[2019-01-05] MEDS: ASPIRIN 81 MG TAB PO SCH (09:42)
[2019-01-05] MEDS: AMLODIPINE 5 MG TAB PO SCH (09:42)
[2019-01-05] MEDS: HEPARIN 5,000 UNIT/1 ML VIAL SC SCH ×2 (09:45→21:03)
--- NOTE | 2019-01-05 11:03 | CONS ---
Consult Date/Type/Reason Admit Date/Time Dec 31, 2018 at 18:57 Initial Consult Date 01/01/19 Type of Consultation: cv Requesting Provider: GRISEL SY MD Date/Time of Note DATE: 01/05/19 TIME: 11:01 Subjective Interventional cardiology follow-up progress note Subjective: Case discussed with staff. Patient with no chest pain or pressure however remains aphasic and is unable to provide reliable history to me. No bleeding is reported Objective: General: no acute distress HEENT: NC/AT. pupils are equal. round. NECK: NO JVD. no stridor. CV: RRR. systolic murmur; no gallop or rubs. PULM: no wheezing or rhonchi. GI: SOFT, NT, ND, no rebound or guarding Extremity: trace B/L LE edema. no clubbing. neuro: awake and alert, however has expressive aphasia unable to express her thoughts Psych: calm and pleasant rectal: deferred : Status post Bea catheter in Review of the old chart showed that echocardiogram done October 23, 2018 shown: Normal left ventricular systolic function. Normal left ventricular cavity size. Normal left ventricular wall thickness. Ejection fraction is visually estimated at 55 %. Trace mitral regurgitation. Aortic valve not well visualized. Aortic sclerosis without significant stenosis. Mild aortic valve regurgitation. Tricuspid valve not well visualized. Unable to obtain RVSP due to minimal presence of tricuspid regurgitation. There is trace tricuspid regurgitation. Objective Vitals Vital Signs Date Temp Pulse Resp B/P (MAP) Pulse Ox O2 O2 Flow FiO2 Time Delivery Rate 01/05/19 98.0 72 17 118/56 97 Room Air 07:27 (76) 01/04/19 1.0 13:39 Intake and Output 01/04/19 01/04/19 01/05/19 1515:00 23:00 07:00 IntakeIntake Total 1130 ml 290 ml 368 ml OutputOutput Total 900 ml 800 ml BalanceBalance 1130 ml -610 ml -432 ml Results/Medications Result Diagram: 01/05/1942901/05/19 043 Results 24 hrs Laboratory Tests Test 01/04/19 19:08 01/05/19 04:30 Vancomycin Level Trough 21.0 *H White Blood Count 9.7 Red Blood Count 3.61 L Hemoglobin 10.2 L Hematocrit 33.0 L Mean Corpuscular Volume 91.4 Mean Corpuscular Hemoglobin 28.3 L Mean Corpuscular Hemoglobin Concent 30.9 L Red Cell Distribution Width 13.2 Platelet Count 221 Mean Platelet Volume 9.2 Immature Granulocytes % 1.200 H Neutrophils % 61.7 Lymphocytes % 26.4 Monocytes % 6.8 Eosinophils % 3.6 Basophils % 0.3 Nucleated Red Blood Cells % 0.0 Immature Granulocytes # 0.120 H Neutrophils # 6.0 Lymphocytes # 2.6 Monocytes # 0.7 Eosinophils # 0.4 Basophils # 0.0 Nucleated Red Blood Cells # 0.0 Sodium Level 142 Potassium Level 3.8 Chloride Level 106 Carbon Dioxide Level 32 H Anion Gap 4 L Blood Urea Nitrogen 19 Creatinine 0.90 Est Glomerular Filtrat Rate mL/min Glucose Level 90 Calcium Level 9.1 Phosphorus Level 3.5 Magnesium Level 1.8 Home Meds Active Scripts Aspirin (Aspirin) 81 Mg Chew, 81 MG PO DAILY for 30 Days, TAB Prov:GRISEL SY MD 10/25/18 Reported Medications Cyanocobalamin* (Vitamin B-12*) 1,000 Mcg Tablet.sa, 1000 MCG PO DAILY, TAB 12/31/18 Gabapentin* (Gabapentin*) 100 Mg Capsule, 100 MG PO DAILY, #90 CAP 12/31/18 Cholecalciferol (Vitamin D3) (Vitamin D-3) 2,000 Unit Tablet, 2000 UNIT PO DAILY, TAB 10/21/18 Rosuvastatin Calcium* (Crestor*) 10 Mg Tablet, 10 MG PO QHS, #30 TAB 06/02/18 Omeprazole* (Omeprazole*) 20 Mg Capsule.dr, 20 MG PO AC BREAKFAST, #30 CAP 06/02/18 Metoprolol Succinate* (Toprol XL*) 50 Mg Tab.er.24h, 50 MG PO DAILY, #30 TAB 06/02/18 Levothyroxine Sodium* (Levothyroxine Sodium*) 25 Mcg Tablet, 25 MCG PO BEFORE BREAKFAST, #30 TAB 06/02/18 Benazepril Hcl* (Benazepril Hcl*) 20 Mg Tablet, 20 MG PO DAILY, #30 TAB 06/02/18 Loperamide Hcl* (Loperamide Hcl*) 2 Mg Cap, 2 MG PO DAILY PRN for DIARRHEA, CAP 06/02/18 Sertraline Hcl* (Sertraline Hcl*) 100 Mg Tablet, 100 MG PO DAILY, #30 TAB 06/02/18 Acetaminophen* (Acetaminophen*) 500 MG Extra Strength Tablet, 500 MG PO Q8 PRN for PAIN AND OR ELEVATED TEMP, TAB 06/02/18 Discontinued Reported Medications Benzocaine/Resorcinol (Anti-Itch Cream) 28 Gm Cream.gm., 28 GM TP DAILY 10/21/18 Benzocaine/Menthol* (Cepacol* Sore Throat Lozenges) 1 Each Lozenge, 1 EACH MM TID PRN for SORE THROAT, LOZENGE 10/21/18 Cyanocobalamin* (Vitamin B12*) 500 Mcg Tab, 1000 MCG PO DAILY, TAB 06/02/18 Docusate Sodium* (Colace*) 100 Mg Capsule, 100 MG PO DAILY PRN for CONSTIPATION, #30 CAP 06/02/18 Menthol/Zinc Oxide (RISAMINE OINTMENT) 113 Gm Oint...g., 1 APPLIC TP DAILY 06/02/18 Discontinued Scripts Cephalexin* (Cephalexin*) 500 Mg Capsule, 500 MG PO Q8 for 7 Days, #21 CAP Prov:RGISEL SY MD 10/25/18 Medications Current Medications IV Flush (NS 3 ml) 3 ml PER PROTOCOL IV ; Start 12/31/18 at 20:30 Ondansetron HCl (Zofran Inj) 4 mg Q6H PRN IV NAUSEA/VOMITING; Start 12/31/18 at 20:30 Acetaminophen (Tylenol Tab) 650 mg Q6H PRN PO .PAIN 1-3 OR TEMP; Start 12/31/18 at 20:30 Acetaminophen/ Hydrocodone Bitart ([place] (5/325)) 1 tab Q6H PRN PO .MOD PAIN 4- 6 Last administered on 01/03/19at 13:36; Admin Dose 1 TAB; Start 12/31/18 at 20:30 Morphine Sulfate (morphine) 2 mg Q4H PRN IV .SEVERE PAIN 7-10 Last administered on 01/02/19at 02:13; Admin Dose 2 MG; Start 12/31/18 at 20:30 Docusate Sodium (Colace) 100 mg Q12H PRN PO .CONSTIPATION; Start 12/31/18 at 20:30 Magnesium Hydroxide (Milk Of Mag) 30 ml DAILY PRN PO .CONSTIPATION; Start 12/31/18 at 20:30 Zolpidem Tartrate (Ambien) 5 mg QHS PRN PO .INSOMNIA Last administered on 01/02/19 20:33; Admin Dose 5 MG; Start 12/31/18 at 20:30 Pantoprazole (Protonix Tab) 40 mg DAILY@06 PO Last administered on 01/05/19 05:41; Admin Dose 40 MG; Start 01/01/19 at 06:00 Heparin Sodium (Porcine) (Heparin (5000 Units/1ml)) 5,000 unit Q12 SC Last administered on 01/05/19 09:45; Admin Dose 5,000 UNIT; Start 12/31/18 at 21:00 Aspirin (Aspirin) 81 mg DAILY PO Last administered on 01/05/19 09:42; Admin Dose 81 MG; Start 01/01/19 at 09:00 Benazepril HCl (Lotensin) 20 mg DAILY PO Last administered on 01/05/19 09:40; Admin Dose 20 MG; Start 01/01/19 at 09:00 Cyanocobalamin (Vitamin B12) 1,000 mcg DAILY PO Last administered on 01/05/19 09:41; Admin Dose 1,000 MCG; Start 01/01/19 at 09:00 Gabapentin (Neurontin) 100 mg DAILY PO Last administered on 01/05/19 09:42; Admin Dose 100 MG; Start 01/01/19 at 09:00 Levothyroxine Sodium (Synthroid) 25 mcg BEFORE BREAKFAST PO Last administered on 01/05/19 05:41; Admin Dose 25 MCG; Start 01/01/19 at 07:00 Loperamide HCl (Imodium Cap) 2 mg DAILY PRN PO DIARRHEA; Start 12/31/18 at 20:30 Metoprolol Succinate (Toprol Xl) 50 mg DAILY PO Last administered on 01/05/19 09:41; Admin Dose 50 MG; Start 01/01/19 at 09:00 Sertraline HCl (Zoloft) 100 mg DAILY PO Last administered on 01/05/19 09:40; Admin Dose 100 MG; Start 01/01/19 at 09:00 Cholecalciferol (Vitamin D) 2,000 unit DAILY PO Last administered on 01/05/19 09:42; Admin Dose 2,000 UNIT; Start 01/01/19 at 09:00 Atorvastatin Calcium (Lipitor) 40 mg QHS PO Last administered on 01/04/19 20:50; Admin Dose 40 MG; Start 12/31/18 at 21:00 Fluconazole (Diflucan) 100 mg DAILY PO Last administered on 01/05/19 09:41; Admin Dose 100 MG; Start 01/01/19 at 16:30 Vancomycin HCl (Vanco Iv Per Pharmacy) VANCOMYCIN PER PHARMACY PER PROTOCOL XX ; Start 01/01/19 at 17:00 Hydralazine HCl (Apresoline) 25 mg Q6H PRN PO ELEVATED BLOOD PRESSURE Last administered on 01/02/19 15:34; Admin Dose 25 MG; Start 01/02/19 at 11:30 Amlodipine Besylate (Norvasc) 10 mg DAILY PO Last administered on 01/05/19 09:42; Admin Dose 10 MG; Start 01/04/19 at 09:00 Hydralazine HCl (Apresoline) 25 mg TID PO Last administered on 01/05/19 09:42; Admin Dose 25 MG; Start 01/03/19 at 21:00 Meropenem/Sodium Chloride 50 ml @ 100 mls/hr Q12 IVPB Last administered on 01/05/19 09:39; Admin Dose 100 MLS/HR; Start 01/03/19 at 14:30 Vancomycin/Sodium Chloride 250 ml @ 125 mls/hr Q24H IVPB Last administered on 01/05/19 00:33; Admin Dose 125 MLS/HR; Start 01/05/19 at 00:00 Assessment/Plan Hospital Course (Demo Recall) 1. Nephrolithiasis 2. History of CVA 3. History of possible P-atrial fibrillation although details not clear and currently appears to be in sinus rhythm 4. Hypertension controlled 5. Thyroid disorder 6. Aphasia 7. Dyslipidemia: On Lipitor Recommendation: Continue with the Toprol and GHAZAL inhibitor, amlodipine Patient is currently on aspirin. As per review of the old chart, it has been previously discussed with the family and have decided against anticoagulation and continued on aspirin only. Aggressive risk factor modification including repeat management is recommended. Thyroid supplement to be continued. Thank you for his referral. We will continue to follow along with you as needed. DIETER DE LEON MD Jan 05, 2019 11:03
[2019-01-05 13:32] VITALS: BP 129/59; PULSE 77; RESP 18
--- NOTE | 2019-01-05 14:58 | PN ---
DATE: 01/05/2019 SUBJECTIVE: The patient was seen, overall doing better. Urine is clearing. Plan for tomorrow to mo ve the JJ stent. Case was discussed extensively with the daughter at bedside. The patient is afebri le, looking better. PHYSICAL EXAMINATION: VITAL SIGNS: Temperature 98.6, pulse 77, respiration 18, blood pressure 129/59, saturation 94%. GENERAL: The patient is in no acute distress. HEENT: Normocephalic, atraumatic, pale. CARDIOVASCULAR: S1, S2, regular rate. LUNGS: Clear. ABDOMEN: Soft. EXTREMITIES: No clubbing, cyanosis or edema. NEUROLOGIC: Right-sided weakness. LABORATORY DATA: White count 9.7 normal, hemoglobin 10.2, hematocrit 33, platelet count 221, neutro phils 62%, lymphs 26%. Chemistry: Sodium 142, potassium 3.8, chloride 106, bicarbonate 32, BUN is 1 9, creatinine 0.9, glucose of 90. Urinalysis did show positive UA on 01/01/2019. Multiple urine cul tures show E. coli and alpha hemolytic Strep and Enterococcus species. This patient remains on broad spectrum antibiotics. MEDICATIONS: Include: 1. Vancomycin dose with pharmacy. 2. Amlodipine 10 mg daily. 3. Hydralazine 25 b.i.d. 4. Merrem IV dose q.12. 5. p.r.n. 6. Diflucan 100 mg daily. 7. Aspirin 81 mg daily. 8. Benazepril 20 mg daily. 9. Vitamin B12 1000 daily. 10. Neurontin 100 daily. 11. Metoprolol succinate 50 daily. 12. Zoloft 100 mg daily. 13. Vitamin D 2000 daily. 14. Synthroid 25 mcg daily. 15. Protonix 40 mg daily. 16. Heparin 5000 q.12. 17. Lipitor 40 mg at bedtime. 18. Zofran. 19. Tylenol. 20. [place]. 21. Morphine. 22. Colace. 23. Milk of Magnesia. 24. Ambien. 25. Imodium p.r.n. ASSESSMENT AND PLAN: This is a 73-year-old female with history of cerebrovascular accident , expressive aphasia, right hemiplegia, hypertension, dyslipidemia, hypothyroidism, right-sided stone s, status post above cystoscopy, lithotripsy and removal of stent and placement of new stent postop d ay #4, remains on broad spectrum antibiotics. 1. History of cerebrovascular accident. Continue supportive care. 2. Hypertension. Continue above blood pressure medication as blood pressure is better controlled. 3. Urinary tract infection. Remains on vancomycin and imipenem. May able to deescalate antibiotic therapy. We will do so after the procedure that is planned for tomorrow. The patient may be able to be placed on cephalosporin and/or penicillin such as Augmentin. 4. Depression, on Zoloft. 5. Continue deep vein thrombosis prophylaxis and gastrointestinal prophylaxis. 6. Diet as tolerated. 7. Hypothyroidism. Continue Synthroid. 8. Anemia. Again, no need for transfusion. We will check iron panel, B12, folic acid and retic cou nt. 9. Followup: The patient has surgery tomorrow and disposition soon. We will follow. Dictated By: GRISEL DURANT/IMELDA Conf#: [id number] DID#: [id number] CC: DIETER DE LEON MD;*EndCC*
[2019-01-05 19:18] VITALS: BP 117/57; PULSE 71; RESP 18
[2019-01-05] MEDS: ATORVASTATIN 40 MG TAB PO SCH (20:32)
[2019-01-06] MEDS: VANCOMYCIN 750 MG (PMX) 250 ML IVPB SCH (00:09)
[2019-01-06 01:21] VITALS: BP 126/58; PULSE 71; RESP 17
[2019-01-06] MEDS: LEVOTHYROXINE 25 MCG TAB PO SCH (06:25)
[2019-01-06] MEDS: PANTOPRAZOLE (EC) 40 MG TAB PO SCH (06:25)
[2019-01-06 08:10] VITALS: BP 142/66; PULSE 72; RESP 18
--- NOTE | 2019-01-06 08:13 | CONS ---
Consult Date/Type/Reason Admit Date/Time Dec 31, 2018 at 18:57 Initial Consult Date 01/01/19 Type of Consultation: Urology Reason for Consultation Right renal stones Requesting Provider: GRISEL SY MD Date/Time of Note DATE: 01/06/19 TIME: 08:10 Subjective Patient appears to be comfortable and has no pain Objective Vitals Vital Signs Date Temp Pulse Resp B/P (MAP) Pulse Ox O2 O2 Flow FiO2 Time Delivery Rate 01/06/19 97.9 71 17 126/58 93 01:21 (80) 01/05/19 Room Air 13:32 01/04/19 1.0 13:39 Intake and Output 01/05/19 01/05/19 01/06/19 1515:00 23:00 07:00 IntakeIntake Total 410 ml 410 ml 490 ml OutputOutput Total 800 ml 900 ml BalanceBalance 410 ml -390 ml -410 ml Exam Bae catheter was draining clear urine. I did go ahead and remove the Bae catheter along with a JJ stent. Results/Medications Result Diagram: 01/06/19 0458 01/06/19 0458 Results 24 hrs Laboratory Tests Test 01/06/19 04:58 White Blood Count 8.7 Red Blood Count 3.72 L Hemoglobin 10.5 L Hematocrit 33.9 L Mean Corpuscular Volume 91.1 Mean Corpuscular Hemoglobin 28.2 L Mean Corpuscular Hemoglobin Concent 31.0 L Red Cell Distribution Width 13.4 Platelet Count 198 Mean Platelet Volume 9.3 Immature Granulocytes % 1.300 H Neutrophils % 61.3 Lymphocytes % 25.1 Monocytes % 7.6 Eosinophils % 4.5 Basophils % 0.2 Nucleated Red Blood Cells % 0.0 Immature Granulocytes # 0.110 H Neutrophils # 5.3 Lymphocytes # 2.2 Monocytes # 0.7 Eosinophils # 0.4 Basophils # 0.0 Nucleated Red Blood Cells # 0.0 Absolute Reticulocyte Count 0.073 Percent Reticulocyte Count 2.0 H Sodium Level 144 Potassium Level 3.9 Chloride Level 103 Carbon Dioxide Level 33 H Anion Gap 8 Blood Urea Nitrogen 28 H Creatinine 1.02 H Est Glomerular Filtrat Rate mL/min Glucose Level 103 Calcium Level 9.1 Phosphorus Level 3.4 Magnesium Level 1.9 Iron Level 61 Total Iron Binding Capacity 213 L Percent Iron Saturation 29 Vitamin B12 Level 962 H Folate 6.2 Home Meds Active Scripts Aspirin (Aspirin) 81 Mg Chew, 81 MG PO DAILY for 30 Days, TAB Prov:GRISEL SY MD 10/25/18 Reported Medications Cyanocobalamin* (Vitamin B-12*) 1,000 Mcg Tablet.sa, 1000 MCG PO DAILY, TAB 12/31/18 Gabapentin* (Gabapentin*) 100 Mg Capsule, 100 MG PO DAILY, #90 CAP 12/31/18 Cholecalciferol (Vitamin D3) (Vitamin D-3) 2,000 Unit Tablet, 2000 UNIT PO DAILY, TAB 10/21/18 Rosuvastatin Calcium* (Crestor*) 10 Mg Tablet, 10 MG PO QHS, #30 TAB 06/02/18 Omeprazole* (Omeprazole*) 20 Mg Capsule.dr, 20 MG PO AC BREAKFAST, #30 CAP 06/02/18 Metoprolol Succinate* (Toprol XL*) 50 Mg Tab.er.24h, 50 MG PO DAILY, #30 TAB 06/02/18 Levothyroxine Sodium* (Levothyroxine Sodium*) 25 Mcg Tablet, 25 MCG PO BEFORE BREAKFAST, #30 TAB 06/02/18 Benazepril Hcl* (Benazepril Hcl*) 20 Mg Tablet, 20 MG PO DAILY, #30 TAB 06/02/18 Loperamide Hcl* (Loperamide Hcl*) 2 Mg Cap, 2 MG PO DAILY PRN for DIARRHEA, CAP 06/02/18 Sertraline Hcl* (Sertraline Hcl*) 100 Mg Tablet, 100 MG PO DAILY, #30 TAB 06/02/18 Acetaminophen* (Acetaminophen*) 500 MG Extra Strength Tablet, 500 MG PO Q8 PRN for PAIN AND OR ELEVATED TEMP, TAB 06/02/18 Discontinued Reported Medications Benzocaine/Resorcinol (Anti-Itch Cream) 28 Gm Cream.gm., 28 GM TP DAILY 10/21/18 Benzocaine/Menthol* (Cepacol* Sore Throat Lozenges) 1 Each Lozenge, 1 EACH MM TID PRN for SORE THROAT, LOZENGE 10/21/18 Cyanocobalamin* (Vitamin B12*) 500 Mcg Tab, 1000 MCG PO DAILY, TAB 06/02/18 Docusate Sodium* (Colace*) 100 Mg Capsule, 100 MG PO DAILY PRN for CONSTIPATION, #30 CAP 06/02/18 Menthol/Zinc Oxide (RISAMINE OINTMENT) 113 Gm Oint...g., 1 APPLIC TP DAILY 06/02/18 Discontinued Scripts Cephalexin* (Cephalexin*) 500 Mg Capsule, 500 MG PO Q8 for 7 Days, #21 CAP Prov:GRISEL SY MD 10/25/18 Medications Current Medications IV Flush (NS 3 ml) 3 ml PER PROTOCOL IV ; Start 12/31/18 at 20:30 Ondansetron HCl (Zofran Inj) 4 mg Q6H PRN IV NAUSEA/VOMITING; Start 12/31/18 at 20:30 Acetaminophen (Tylenol Tab) 650 mg Q6H PRN PO .PAIN 1-3 OR TEMP Last administered on 01/05/19at 14:45; Admin Dose 650 MG; Start 12/31/18 at 20:30 Acetaminophen/ Hydrocodone Bitart ([place] (5/325)) 1 tab Q6H PRN PO .MOD PAIN 4- 6 Last administered on 01/03/19 13:36; Admin Dose 1 TAB; Start 12/31/18 at 20:30 Morphine Sulfate (morphine) 2 mg Q4H PRN IV .SEVERE PAIN 7-10 Last administered on 01/02/19at 02:13; Admin Dose 2 MG; Start 12/31/18 at 20:30 Docusate Sodium (Colace) 100 mg Q12H PRN PO .CONSTIPATION; Start 12/31/18 at 20:30 Magnesium Hydroxide (Milk Of Mag) 30 ml DAILY PRN PO .CONSTIPATION; Start 12/31/18 at 20:30 Zolpidem Tartrate (Ambien) 5 mg QHS PRN PO .INSOMNIA Last administered on 01/02/19at 20:33; Admin Dose 5 MG; Start 12/31/18 at 20:30 Pantoprazole (Protonix Tab) 40 mg DAILY@06 PO Last administered on 01/06/19at 0 6:25; Admin Dose 40 MG; Start 01/01/19 at 06:00 Heparin Sodium (Porcine) (Heparin (5000 Units/1ml)) 5,000 unit Q12 SC Last administered on 01/05/19 21:03; Admin Dose 5,000 UNIT; Start 12/31/18 at 21:00 Aspirin (Aspirin) 81 mg DAILY PO Last administered on 01/05/19at 09:42; Admin Dose 81 MG; Start 01/01/19 at 09:00 Benazepril HCl (Lotensin) 20 mg DAILY PO Last administered on 01/05/19 09:40; Admin Dose 20 MG; Start 01/01/19 at 09:00 Cyanocobalamin (Vitamin B12) 1,000 mcg DAILY PO Last administered on 01/05/19 09:41; Admin Dose 1,000 MCG; Start 01/01/19 at 09:00 Gabapentin (Neurontin) 100 mg DAILY PO Last administered on 01/05/19 09:42; Admin Dose 100 MG; Start 01/01/19 at 09:00 Levothyroxine Sodium (Synthroid) 25 mcg BEFORE BREAKFAST PO Last administered on 01/06/19 06:25; Admin Dose 25 MCG; Start 01/01/19 at 07:00 Loperamide HCl (Imodium Cap) 2 mg DAILY PRN PO DIARRHEA; Start 12/31/18 at 20:30 Metoprolol Succinate (Toprol Xl) 50 mg DAILY PO Last administered on 01/05/19 09:41; Admin Dose 50 MG; Start 01/01/19 at 09:00 Sertraline HCl (Zoloft) 100 mg DAILY PO Last administered on 01/05/19 09:40; Admin Dose 100 MG; Start 01/01/19 at 09:00 Cholecalciferol (Vitamin D) 2,000 unit DAILY PO Last administered on 01/05/19 09:42; Admin Dose 2,000 UNIT; Start 01/01/19 at 09:00 Atorvastatin Calcium (Lipitor) 40 mg QHS PO Last administered on 01/05/19 20:32; Admin Dose 40 MG; Start 12/31/18 at 21:00 Fluconazole (Diflucan) 100 mg DAILY PO Last administered on 01/05/19 09:41; Admin Dose 100 MG; Start 01/01/19 at 16:30 Vancomycin HCl (Vanco Iv Per Pharmacy) VANCOMYCIN PER PHARMACY PER PROTOCOL XX ; Start 01/01/19 at 17:00 Hydralazine HCl (Apresoline) 25 mg Q6H PRN PO ELEVATED BLOOD PRESSURE Last administered on 01/02/19 15:34; Admin Dose 25 MG; Start 01/02/19 at 11:30 Amlodipine Besylate (Norvasc) 10 mg DAILY PO Last administered on 01/05/19 09:42; Admin Dose 10 MG; Start 01/04/19 at 09:00 Hydralazine HCl (Apresoline) 25 mg TID PO Last administered on 01/05/19 20:32; Admin Dose 25 MG; Start 01/03/19 at 21:00 Meropenem/Sodium Chloride 50 ml @ 100 mls/hr Q12 IVPB Last administered on 01/05/19 20:32; Admin Dose 100 MLS/HR; Start 01/03/19 at 14:30 Vancomycin/Sodium Chloride 250 ml @ 125 mls/hr Q24H IVPB Last administered on 01/06/19 00:09; Admin Dose 125 MLS/HR; Start 01/05/19 at 00:00 Assessment/Plan Hospital Course (Demo Recall) 73-year-old female with history of kidney stones, is status post right uretero scopy and laser lithotripsy and insertion of right ureteral JJ stent. Her kidney appeared to have a lot of infection from yeast. The urine is now clear. The JJ stent has a string that is attached at the distal end and taped to the Bae catheter. The urine culture from the kidney did show: URINE CULTURE Preliminary Organism 1 ESCHERICHIA COLI Organism 2 GRAM NEGATIVE NATACHA COLONY COUNT 10,000 - 20,000 CFU/ml Organism 3 STREPTOCOCCUS SPECIES COLONY COUNT 20,000 - 30,000 CFU/ml E COLI E COLI M.I.C. RX M.I.C. RX --------- --- --------- --- AMIKACIN 8 S AMPICILLIN >=32 R CEFAZOLIN <=4 S CEFOTAXIME S CIPROFLOXACIN >=4 R GENTAMICIN <=1 S LEVOFLOXACIN >=8 R MEROPENEM 0.032 S NITROFURANTOIN <=16 S TOBRAMYCIN >=16 R TRIMETHOPRIM/SULFAMETHOXAZOLE <=20 S She also does have enterococcus. We will continue her meropenem and vancomycin . I did remove the Bae catheter and the JJ stent this morning. If she remains a stable and she may be discharged on Bactrim DS. LOPEZ SON MD Jan 06, 2019 08:13
[2019-01-06] MEDS: BENAZEPRIL 20 MG TAB PO SCH (09:35)
[2019-01-06] MEDS: GABAPENTIN 100 MG CAP PO SCH (09:36)
[2019-01-06] MEDS: FLUCONAZOLE 100 MG TAB PO SCH (09:37)
[2019-01-06] MEDS: SERTRALINE 100 MG TAB PO SCH (09:37)
[2019-01-06] MEDS: METOPROLOL (XL) 50 MG TAB PO SCH (09:37)
[2019-01-06] MEDS: CHOLECALCIFEROL 2,000 UNIT CAP PO SCH (09:38)
[2019-01-06] MEDS: ASPIRIN 81 MG TAB PO SCH (09:39)
[2019-01-06] MEDS: CYANOCOBALAMIN 500 MCG TAB PO SCH (09:41)
[2019-01-06] MEDS: AMLODIPINE 5 MG TAB PO SCH (09:41)
[2019-01-06] MEDS: MEROPENEM 1 GM/50ML(PMX) 50 ML IVPB SCH (09:46)
[2019-01-06] MEDS: HEPARIN 5,000 UNIT/1 ML VIAL SC SCH (09:54)
--- NOTE | 2019-01-06 10:11 | CONS ---
Consult Date/Type/Reason Admit Date/Time Dec 31, 2018 at 18:57 Initial Consult Date 01/01/19 Type of Consultation: Urology Requesting Provider: GRISEL SY MD Date/Time of Note DATE: 01/06/19 TIME: 10:09 Subjective Interventional cardiology follow-up progress note Subjective: Case discussed with staff. Patient with no chest pain or pressure however cm ins aphasic and is unable to provide reliable history to me. No bleeding is reported s/p stent removal 01/06 Objective: General: no acute distress HEENT: NC/AT. pupils are equal. round. NECK: NO JVD. no stridor. CV: RRR. systolic murmur; no gallop or rubs. PULM: no wheezing or rhonchi. GI: SOFT, NT, ND, no rebound or guarding Extremity: trace B/L LE edema. no clubbing. neuro: awake and alert, however has expressive aphasia unable to express her thoughts Psych: calm and pleasant rectal: deferred : Status post Bae catheter in Review of the old chart showed that echocardiogram done October 23, 2018 shown: Normal left ventricular systolic function. Normal left ventricular cavity size. Normal left ventricular wall thickness. Ejection fraction is visually estimated at 55 %. Trace mitral regurgitation. Aortic valve not well visualized. Aortic sclerosis without significant stenosis. Mild aortic valve regurgitation. Tricuspid valve not well visualized. Unable to obtain RVSP due to minimal presence of tricuspid regurgitation. There is trace tricuspid regurgitation. Objective Vitals Vital Signs Date Temp Pulse Resp B/P (MAP) Pulse Ox O2 O2 Flow FiO2 Time Delivery Rate 01/06/19 97.8 72 18 142/66 93 Room Air 08:10 (91) 01/04/19 1.0 13:39 Intake and Output 01/05/19 01/05/19 01/06/19 1515:00 23:00 07:00 IntakeIntake Total 410 ml 410 ml 490 ml OutputOutput Total 800 ml 900 ml BalanceBalance 410 ml -390 ml -410 ml Results/Medications Result Diagram: 01/06/19 0458 01/06/19 0458 Results 24 hrs Laboratory Tests Test 01/06/19 04:58 White Blood Count 8.7 Red Blood Count 3.72 L Hemoglobin 10.5 L Hematocrit 33.9 L Mean Corpuscular Volume 91.1 Mean Corpuscular Hemoglobin 28.2 L Mean Corpuscular Hemoglobin Concent 31.0 L Red Cell Distribution Width 13.4 Platelet Count 198 Mean Platelet Volume 9.3 Immature Granulocytes % 1.300 H Neutrophils % 61.3 Lymphocytes % 25.1 Monocytes % 7.6 Eosinophils % 4.5 Basophils % 0.2 Nucleated Red Blood Cells % 0.0 Immature Granulocytes # 0.110 H Neutrophils # 5.3 Lymphocytes # 2.2 Monocytes # 0.7 Eosinophils # 0.4 Basophils # 0.0 Nucleated Red Blood Cells # 0.0 Absolute Reticulocyte Count 0.073 Percent Reticulocyte Count 2.0 H Sodium Level 144 Potassium Level 3.9 Chloride Level 103 Carbon Dioxide Level 33 H Anion Gap 8 Blood Urea Nitrogen 28 H Creatinine 1.02 H Est Glomerular Filtrat Rate mL/min Glucose Level 103 Calcium Level 9.1 Phosphorus Level 3.4 Magnesium Level 1.9 Iron Level 61 Total Iron Binding Capacity 213 L Percent Iron Saturation 29 Vitamin B12 Level 962 H Folate 6.2 Home Meds Active Scripts Aspirin (Aspirin) 81 Mg Chew, 81 MG PO DAILY for 30 Days, TAB Prov:GRISEL SY MD 10/25/18 Reported Medications Cyanocobalamin* (Vitamin B-12*) 1,000 Mcg Tablet.sa, 1000 MCG PO DAILY, TAB 12/31/18 Gabapentin* (Gabapentin*) 100 Mg Capsule, 100 MG PO DAILY, #90 CAP 12/31/18 Cholecalciferol (Vitamin D3) (Vitamin D-3) 2,000 Unit Tablet, 2000 UNIT PO DAILY, TAB 10/21/18 Rosuvastatin Calcium* (Crestor*) 10 Mg Tablet, 10 MG PO QHS, #30 TAB 06/02/18 Omeprazole* (Omeprazole*) 20 Mg Capsule.dr, 20 MG PO AC BREAKFAST, #30 CAP 06/02/18 Metoprolol Succinate* (Toprol XL*) 50 Mg Tab.er.24h, 50 MG PO DAILY, #30 TAB 06/02/18 Levothyroxine Sodium* (Levothyroxine Sodium*) 25 Mcg Tablet, 25 MCG PO BEFORE BREAKFAST, #30 TAB 06/02/18 Benazepril Hcl* (Benazepril Hcl*) 20 Mg Tablet, 20 MG PO DAILY, #30 TAB 06/02/18 Loperamide Hcl* (Loperamide Hcl*) 2 Mg Cap, 2 MG PO DAILY PRN for DIARRHEA, CAP 06/02/18 Sertraline Hcl* (Sertraline Hcl*) 100 Mg Tablet, 100 MG PO DAILY, #30 TAB 06/02/18 Acetaminophen* (Acetaminophen*) 500 MG Extra Strength Tablet, 500 MG PO Q8 PRN for PAIN AND OR ELEVATED TEMP, TAB 06/02/18 Discontinued Reported Medications Benzocaine/Resorcinol (Anti-Itch Cream) 28 Gm Cream.gm., 28 GM TP DAILY 10/21/18 Benzocaine/Menthol* (Cepacol* Sore Throat Lozenges) 1 Each Lozenge, 1 EACH MM TID PRN for SORE THROAT, LOZENGE 10/21/18 Cyanocobalamin* (Vitamin B12*) 500 Mcg Tab, 1000 MCG PO DAILY, TAB 06/02/18 Docusate Sodium* (Colace*) 100 Mg Capsule, 100 MG PO DAILY PRN for CONSTIPATION, #30 CAP 06/02/18 Menthol/Zinc Oxide (RISAMINE OINTMENT) 113 Gm Oint...g., 1 APPLIC TP DAILY 06/02/18 Discontinued Scripts Cephalexin* (Cephalexin*) 500 Mg Capsule, 500 MG PO Q8 for 7 Days, #21 CAP Prov:GRISEL SY MD 10/25/18 Medications Current Medications IV Flush (NS 3 ml) 3 ml PER PROTOCOL IV ; Start 12/31/18 at 20:30 Ondansetron HCl (Zofran Inj) 4 mg Q6H PRN IV NAUSEA/VOMITING; Start 12/31/18 at 20:30 Acetaminophen (Tylenol Tab) 650 mg Q6H PRN PO .PAIN 1-3 OR TEMP Last administered on 01/05/19at 14:45; Admin Dose 650 MG; Start 12/31/18 at 20:30 Acetaminophen/ Hydrocodone Bitart ([place] (5/325)) 1 tab Q6H PRN PO .MOD PAIN 4- 6 Last administered on 01/03/19at 13:36; Admin Dose 1 TAB; Start 12/31/18 at 20:30 Morphine Sulfate (morphine) 2 mg Q4H PRN IV .SEVERE PAIN 7-10 Last administered on 01/02/19at 02:13; Admin Dose 2 MG; Start 12/31/18 at 20:30 Docusate Sodium (Colace) 100 mg Q12H PRN PO .CONSTIPATION; Start 12/31/18 at 20:30 Magnesium Hydroxide (Milk Of Mag) 30 ml DAILY PRN PO .CONSTIPATION; Start 12/31/18 at 20:30 Zolpidem Tartrate (Ambien) 5 mg QHS PRN PO .INSOMNIA Last administered on 01/02/19 20:33; Admin Dose 5 MG; Start 12/31/18 at 20:30 Pantoprazole (Protonix Tab) 40 mg DAILY@06 PO Last administered on 01/06/19 06:25; Admin Dose 40 MG; Start 01/01/19 at 06:00 Heparin Sodium (Porcine) (Heparin (5000 Units/1ml)) 5,000 unit Q12 SC Last ad ministered on 01/06/19 09:54; Admin Dose 5,000 UNIT; Start 12/31/18 at 21:00 Aspirin (Aspirin) 81 mg DAILY PO Last administered on 01/06/19 09:39; Admin Dose 81 MG; Start 01/01/19 at 09:00 Benazepril HCl (Lotensin) 20 mg DAILY PO Last administered on 01/06/19 09:35; Admin Dose 20 MG; Start 01/01/19 at 09:00 Cyanocobalamin (Vitamin B12) 1,000 mcg DAILY PO Last administered on 01/06/19 09:41; Admin Dose 1,000 MCG; Start 01/01/19 at 09:00 Gabapentin (Neurontin) 100 mg DAILY PO Last administered on 01/06/19 09:36; Admin Dose 100 MG; Start 01/01/19 at 09:00 Levothyroxine Sodium (Synthroid) 25 mcg BEFORE BREAKFAST PO Last administered on 01/06/19 06:25; Admin Dose 25 MCG; Start 01/01/19 at 07:00 Loperamide HCl (Imodium Cap) 2 mg DAILY PRN PO DIARRHEA; Start 12/31/18 at 20:30 Metoprolol Succinate (Toprol Xl) 50 mg DAILY PO Last administered on 01/06/19 09:37; Admin Dose 50 MG; Start 01/01/19 at 09:00 Sertraline HCl (Zoloft) 100 mg DAILY PO Last administered on 01/06/19 09:37; Admin Dose 100 MG; Start 01/01/19 at 09:00 Cholecalciferol (Vitamin D) 2,000 unit DAILY PO Last administered on 01/06/19 09:38; Admin Dose 2,000 UNIT; Start 01/01/19 at 09:00 Atorvastatin Calcium (Lipitor) 40 mg QHS PO Last administered on 01/05/19 20:32; Admin Dose 40 MG; Start 12/31/18 at 21:00 Fluconazole (Diflucan) 100 mg DAILY PO Last administered on 01/06/19 09:37; Admin Dose 100 MG; Start 01/01/19 at 16:30 Vancomycin HCl (Vanco Iv Per Pharmacy) VANCOMYCIN PER PHARMACY PER PROTOCOL XX ; Start 01/01/19 at 17:00 Hydralazine HCl (Apresoline) 25 mg Q6H PRN PO ELEVATED BLOOD PRESSURE Last administered on 01/02/19 15:34; Admin Dose 25 MG; Start 01/02/19 at 11:30 Amlodipine Besylate (Norvasc) 10 mg DAILY PO Last administered on 01/06/19 09:41; Admin Dose 10 MG; Start 01/04/19 at 09:00 Hydralazine HCl (Apresoline) 25 mg TID PO Last administered on 01/06/19 09:39; Admin Dose 25 MG; Start 01/03/19 at 21:00 Meropenem/Sodium Chloride 50 ml @ 100 mls/hr Q12 IVPB Last administered on 01/06/19 09:46; Admin Dose 100 MLS/HR; Start 01/03/19 at 14:30 Vancomycin/Sodium Chloride 250 ml @ 125 mls/hr Q24H IVPB Last administered on 01/06/19 00:09; Admin Dose 125 MLS/HR; Start 01/05/19 at 00:00 Assessment/Plan Hospital Course (Demo Recall) 1. Nephrolithiasis 2. History of CVA 3. History of possible P-atrial fibrillation although details not clear and currently appears to be in sinus rhythm 4. Hypertension controlled 5. Thyroid disorder 6. Aphasia 7. Dyslipidemia: On Lipitor Recommendation: Continue with the Toprol and GHAZAL inhibitor, amlodipine Aggressive risk factor modification including repeat management is recommended. Thyroid supplement to be continued. dc planning as per IM/ consult Thank you for his referral. We will continue to follow along with you as needed. DIETER DE LEON MD Jan 06, 2019 10:11
--- NOTE | 2019-01-06 14:02 | PDOCDIS ---
Discharge Instructions CONDITION [id number] Patient Condition: [id number] Stable FOLLOW UP/APPOINTMENTS Follow-up Plan follow up with PCP, urology with Dr. Denise, see prescriptions GRISEL SY MD Jan 06, 2019 14:02
[2019-01-06] MEDS ORDERED: AMLO-145 PO (14:12)
[2019-01-06] MEDS ORDERED: HYDR-3671 PO (14:12)
[2019-01-06] MEDS ORDERED: FLUC100T PO (14:12)
[2019-01-06] MEDS ORDERED: SULF1TAB31 PO (14:12)
[2019-01-06] MEDS ORDERED: LEVO500T48 PO (14:12)
[2019-01-06 14:15] VITALS: BP 117/57; PULSE 75; RESP 18
--- NOTE | 2019-01-07 04:16 | DS ---
DATE OF ADMISSION: 12/31/2018 DATE OF DISCHARGE: 01/06/2019 REASON FOR ADMISSION: Right renal stones and nephrolithiasis. HOSPITAL COURSE: The patient is a 73-year-old female, very well known to me with history o f CVA, right hemiplegia, expressive aphasia, hypertension, dyslipidemia, depression who lives at [facility]. She was here at the hospital in 10/2018 with right-sided stone s where she underwent cystoscopy and insertion of right ureteral JJ stent. The patient now presented to the ER and also for elective removal of the stent and further evaluation. Upon presentation, whi te count is high at 12.5. Urinalysis was remarkably positive. The patient was on Rocephin. Dr. Pato valle was consulted and the patient underwent cystoscopy, right ureteropyeloscopy, laser lithotripsy, removal and replacement of right ureteral JJ stent. The patient tolerated the procedure well. Posto peratively, she had worsening leukocytosis, tachycardia and low-grade temperature. The patient was p laced on broad-spectrum antibiotics. Cultures were obtained and urine cultures were positive includi ng organism such as E. coli, alpha hemolytic Strep, Enterococcus species. The patient was treated wi th the appropriate antibiotics and the patient is currently doing well. The patient also was seen by the lead sewage plant operator for cardiac clearance and evaluation. The patient has now been more stable. Vital s are stable, temperature 97.8, pulse 72, respirations 18, blood pressure 142/66, saturation 93%. Th e patient's Bae now is clear and it was removed including the JJ stent was removed. The patient in structed to follow up with PCP and urology. DISCHARGE MEDICATIONS: She will be discharged with: 1. Omeprazole 20 mg daily. 2. Synthroid 25 mcg daily. 3. Vitamin D3 2000 daily. 4. Vitamin B12 1000 daily. 5. Amlodipine 5 mg daily. 6. Hydralazine 25 t.i.d. 7. Aspirin 81 daily. 8. Neurontin 100 daily. 9. Zoloft 100 mg daily. 10. Diflucan 100 mg daily for 5 days. 11. Benazepril 20 mg daily. 12. Toprol-XL 50 mg daily. 13. Crestor 10 mg at bedtime. 14. Levaquin 500 mg daily for 5 days. 16. Bactrim-DS 1 tab p.o. b.i.d. for 7 days. FINAL DIAGNOSES: 1. Right-sided nephrolithiasis. 2. Urinary tract infection. 3. Anemia. 4. Hypertension. 5. Cerebrovascular accident with right hemiplegia and expressive aphasia. 6. Acute on chronic renal insufficiency. Blood cultures were negative. 7. Possible atrial fibrillation. 8. Thyroid disorder or hypothyroidism. 9. Dyslipidemia. DISPOSITION: The patient is to be discharged with home health to assisted living facility at [facility]. Case was discussed with daughter on a regular basis. DIET: Soft, 2 grams sodium. Aspiration precautions. DISCHARGE INSTRUCTIONS: The patient is doing well prior to discharge. Any change in condition to [facility] 911 or go to nearest emergency department. The patient discharged back to the assisted living. Dictated By: GRISEL DURANT/NTS Conf#: [id number] DID#: [id number] CC: DIETER DE LEON MD;*EndCC*
== END 2019-01-06 18:20 | disposition home or self-care (01) | DRG 660 ==
LOC: E/R 17:26 → 2NE 18:57
PROVIDERS: ADMIT Internal Medicine; ATTEND Internal Medicine
PROC: 0T768DZ Dilation of Right Ureter with Intraluminal Device, Via Natural or Artificial Opening Endoscopic (ICD-10-PCS; 2019-01-01)
PROC: 0TP98DZ Removal of Intraluminal Device from Ureter, Via Natural or Artificial Opening Endoscopic (ICD-10-PCS; 2019-01-01)
PROC: 0TC08ZZ Extirpation of Matter from Right Kidney, Via Natural or Artificial Opening Endoscopic (ICD-10-PCS; principal; 2019-01-01 12:30)
DX: N20.0 Calculus of kidney (principal); I69.351 Hemiplegia and hemiparesis following cerebral infarction affecting right dominant side; N39.0 Urinary tract infection, site not specified; I69.920 Aphasia following unspecified cerebrovascular disease; I10 Essential (primary) hypertension; E78.5 Hyperlipidemia, unspecified; F32.9 Major depressive disorder, single episode, unspecified; Z79.82 Long term (current) use of aspirin; E03.9 Hypothyroidism, unspecified; B95.2 Enterococcus as the cause of diseases classified elsewhere; B95.8 Unspecified staphylococcus as the cause of diseases classified elsewhere; I48.0 Paroxysmal atrial fibrillation
CPT/HCPCS: 71045; 74018; 80048; 80053; 80202; 81001; 82607; 82746; 82962; 83540; 83605; 83735; 84100; 85025; 85045; 85610; 85730; 87040; 87086; 88300; 93005; C2617; J0696; J1644; J2185; J2270; J2543; J3370; J7030; J7040; J7050

== ENCOUNTER 2019-05-23 10:51 | Emergency (ER) | payer MEDICARE, OTHER ==
[~2019-05-23] VITALS: Wt 74.8 kg
[~2019-05-23 10:51] MED LIST changes: +AMLO-145 PO; +AMLO5TAB4 PO; +ASPI81TA52 PO; -BENZ28CR TP; +CEPH-443 PO; -CEPH500C PO; +CYAN100080 PO; -CYAN500T46 PO; -DOCU-144 PO; +DOCU-221 PO; +FLUC100T PO; +GABA100C14 PO; +HC.5O30 TOP; +HYDR-3671 PO; +LEVO500T48 PO; -MENT113O5 TP; -ROSU10TA55 PO; +RSV10T PO; +SULF1TAB31 PO
--- NOTE | 2019-05-23 11:55 | ERD ---
ER Documentation Chief Complaint Chief Complaint syncopal episode per staff no trauma. found sitting. no neurodef, basline HPI 74-year-old female history of stroke with baseline aphasia and right-sided deficits was normal baseline mental status had breakfast this morning sat in the chair and nursing staff at her facility noticed that she was not responding as normal. Her eyes were open she was not unconscious but was unable to verbalize her move but this lasted for several seconds. There was no shaking noticed patient subsequently returned back to normal. Per daughter this has happened in the past when she was hypokalemic or had a UTI. No recent infections. No nausea or vomiting. Per daughter patient is back to normal right now. ROS All systems reviewed and are negative except as per history of present illness. Medications Home Meds Reported Medications Hydrocortisone* Topical (Hydrocortisone* Topical) 0.5%- 28.35 Gm Oint, 1 APPLIC TOP DAILY, TUB 1% 05/23/19 Docusate Sodium* (Doc-Q-Lace*) 100 Mg Capsule, 100 MG PO DAILY PRN for CONSTI PATION, CAP 05/23/19 Benzocaine/Menthol* (Cepacol* Sore Throat Lozenges) 1 Each Lozenge, 1 EACH MM TID PRN for SORE THROAT, LOZENGE 05/23/19 Hydralazine Hcl* (Hydralazine Hcl*) 25 Mg Tab, 25 MG PO TID, #90 TAB 05/23/19 Loperamide Hcl* (Loperamide Hcl*) 2 Mg Cap, 2 MG PO DAILY, CAP 05/23/19 Aspirin (Low Dose Aspirin) 81 Mg Tablet.dr, 81 MG PO DAILY, #30 TAB 05/23/19 Amlodipine Besylate* (Norvasc*) 5 Mg Tablet, 5 MG PO DAILY, TAB 05/23/19 Cyanocobalamin* (Vitamin B-12*) 1,000 Mcg Tablet.sa, 1000 MCG PO DAILY, TAB 12/31/18 Gabapentin* (Gabapentin*) 100 Mg Capsule, 100 MG PO DAILY, #90 CAP 12/31/18 Cholecalciferol (Vitamin D3) (Vitamin D-3) 2,000 Unit Tablet, 2000 UNIT PO DAILY, TAB 10/21/18 Rosuvastatin Calcium* (Crestor*) 10 Mg Tablet, 10 MG PO QHS, #30 TAB 06/02/18 Omeprazole* (Omeprazole*) 20 Mg Capsule.dr, 20 MG PO AC BREAKFAST, #30 CAP 06/02/18 Metoprolol Succinate* (Toprol XL*) 50 Mg Tab.er.24h, 50 MG PO DAILY, #30 TAB 06/02/18 Levothyroxine Sodium* (Levothyroxine Sodium*) 25 Mcg Tablet, 25 MCG PO BEFORE BREAKFAST, #30 TAB 06/02/18 Benazepril Hcl* (Benazepril Hcl*) 20 Mg Tablet, 20 MG PO DAILY, #30 TAB 06/02/18 Sertraline Hcl* (Sertraline Hcl*) 100 Mg Tablet, 100 MG PO DAILY, #30 TAB 06/02/18 Acetaminophen* (Acetaminophen*) 500 MG Extra Strength Tablet, 500 MG PO Q8 PRN for PAIN AND OR ELEVATED TEMP, TAB 06/02/18 Discontinued Scripts Sulfamethoxazole/Trimethoprim* (Bactrim Ds* Tablet) 1 Each Tablet, 1 TAB PO BID for 7 Days, TAB Prov:GRISEL SY MD 01/06/19 Levofloxacin* (Levaquin*) 500 Mg Tablet, 500 MG PO DAILY for 5 Days, TAB Prov:GRISEL SY MD 01/06/19 Hydralazine Hcl* (Hydralazine Hcl*) 25 Mg Tab, 25 MG PO TID for 30 Days, TAB Prov:GRISEL SY MD 01/06/19 Amlodipine Besylate* (Amlodipine Besylate*) 5 Mg Tablet, 5 MG PO DAILY for 30 Days, TAB Prov:GRISEL SY MD 01/06/19 Fluconazole* (Diflucan*) 100 Mg Tablet, 100 MG PO DAILY for 5 Days, #5 TAB Prov:GRISEL SY MD 01/06/19 Aspirin (Aspirin) 81 Mg Chew, 81 MG PO DAILY for 30 Days, TAB Prov:GRISEL SY MD 10/25/18 Allergies Allergies: Coded Allergies: No Known Allergy (Unverified , 05/23/19) PMhx/Soc History of Surgery: Yes (JJ STENT, NECK, HYSTERECTOMY) Anesthesia Reaction: No Hx Neurological Disorder: Yes (CVA WITH R SIDE WEAKNESS, APHASIA) Hx Respiratory Disorders: No Hx Cardiac Disorders: No Hx Psychiatric Problems: Yes (H/O DEPRESSION) Hx Miscellaneous Medical Probl: No Hx Alcohol Use: No Hx Substance Use: No Hx Tobacco Use: No Physical Exam Vitals Vital Signs Date Temp Pulse Resp B/P (MAP) Pulse Ox O2 O2 Flow FiO2 Time Delivery Rate 05/23/19 97.8 72 18 116/59 96 10:58 (78) Physical Exam Const: No acute distress Head: Atraumatic Eyes: Normal Conjunctiva ENT: Normal External Ears, Nose and Mouth. Neck: Full range of motion. No meningismus. Resp: Clear to auscultation bilaterally Cardio: Regular rate and rhythm, no murmurs Abd: Soft, non tender, non distended. Normal bowel sounds Skin: No petechiae or rashes Back: No midline or flank tenderness Ext: No cyanosis, or edema Neuro Exam Mental status: Alert lucid, cooperative, appropriate Cranial nerves: CN 2-12 intact Motor: 5+ LUE and LLE, right upper extremity spastic and unable to move. Right lower extremity 3 out of 5 strength. This is chronic exam findings per daughter. Sensation: grossly intact to find touch UE and LE symmetrically Gait: Baseline unable to ambulate Tone: normal bulk and tone in upper and lower extremities. No atrophy noted. Except right upper extremity spasticity Result Diagram: 05/23/19 1133 05/23/19 1133 Results 24 hrs Laboratory Tests Test 05/23/19 11:31 05/23/19 11:33 05/23/19 12:25 Bedside Glucose 106 mg/dL White Blood Count 8.0 10^3/ul Red Blood Count 4.35 10^6/ul Hemoglobin 12.5 g/dl Hematocrit 40.6 % Mean Corpuscular Volume 93.3 fl Mean Corpuscular Hemoglobin 28.7 pg Mean Corpuscular 30.8 g/dl Hemoglobin Concent Red Cell Distribution Width 13.2 % Platelet Count 118 10^3/UL Mean Platelet Volume 11.7 fl Immature Granulocytes % 0.200 % Neutrophils % 65.8 % Lymphocytes % 22.5 % Monocytes % 8.2 % Eosinophils % 3.1 % Basophils % 0.2 % Nucleated Red Blood Cells % 0.0 /100WBC Immature Granulocytes # 0.020 10^3/ul Neutrophils # 5.3 10^3/ul Lymphocytes # 1.8 10^3/ul Monocytes # 0.7 10^3/ul Eosinophils # 0.3 10^3/ul Basophils # 0.0 10^3/ul Nucleated Red Blood Cells # 0.0 10^3/ul Sodium Level 144 mmol/L Potassium Level 3.7 mmol/L Chloride Level 111 mmol/L Carbon Dioxide Level 27 mmol/L Anion Gap 6 Blood Urea Nitrogen 20 mg/dl Creatinine 0.97 mg/dl Est Glomerular Filtrat Rate mL/min mL/min Glucose Level 107 mg/dl Calcium Level 9.4 mg/dl Total Bilirubin 0.3 mg/dl Direct Bilirubin 0.00 mg/dl Indirect Bilirubin 0.3 mg/dl Aspartate Amino Transf (AST/SGOT) 18 IU/L Alanine 16 IU/L Aminotransferase (ALT/SGPT) Alkaline Phosphatase 68 IU/L Troponin I < 0.012 ng/ml Total Protein 7.1 g/dl Albumin 3.7 g/dl Globulin 3.40 g/dl Albumin/Globulin Ratio 1.08 Bedside Urine pH (LAB) 6.5 Bedside Urine Protein (LAB) 2+ Bedside Urine Glucose (UA) Negative Bedside Urine Ketones (LAB) Negative Bedside Urine Blood 2+ Bedside Urine Nitrite (LAB) Positive Bedside Urine Leukocyte Esterase 3+ (L Current Medications Medications Dose Sig/Leonel Start Time Status Last (Trade) Ordered Route PRN Stop Time Admin Dose Reason Admin Ceftriaxone 50 ml @ ONCE ONCE 05/23/19 05/23/19 Sodium 100 mls/hr IVPB 12:30 12:42 05/23/19 12:59 Procedures/MDM 12 lead ECG Time: 1136 Rate/Rhythm: Normal Sinus Rhythm at a rate of [68] beats per minute QRS, ST, T-waves: No changes consistent w/ acute ischemia T wave inversion lead III Impression: No evidence of ischemia or arrhythmia Patient presenting with weakness. Differentially included but not was limited too CVA, ACS, arrythmia, metabolic derangement, infection. Patient was observed and treated with antibiotics.. I evaluated vital signs, physical exam, history and labs. At this time it is believed the weakness is from UTI CBC: no evidence of clinically significant leukopenia, leukocytosis, anemia, thrombocytopenia, or thrombocytosis CMP: no evidence of clinically significant acidosis, alkalosis, renal dysfunction, diabetic ketoacidosis, acute liver disease or electrolyte imbalance Troponin: no evidence of acute myocardial injury Urine: UTI CT brain negative for acute condition Shared decision making was had and all parties agree on going home with strict return precautions. Departure Diagnosis: Primary Impression: UTI (urinary tract infection) Urinary tract infection type: acute cystitis Hematuria presence: without hematuria Qualified Codes: N30.00 - Acute cystitis without hematuria Additional Impression: Weak Condition: Stable Patient Instructions: Understanding Urinary Tract Infections (UTIs) RANI GARDNER MD May 23, 2019 11:55
[2019-05-23] MEDS ORDERED: CEFTRIAXONE 1 GM/50 ML (PMX) 50 ML IVPB ONE (12:30)
[2019-05-23 14:09] VITALS: BP 96/52; PULSE 70; RESP 18
== END 2019-05-23 14:13 | disposition home or self-care (01) ==
LOC: E/R 10:51
DX: N30.00 Acute cystitis without hematuria (principal); Z79.82 Long term (current) use of aspirin; Z86.73 Personal history of transient ischemic attack (TIA), and cerebral infarction without residual deficits
CPT/HCPCS: 36415; 70450; 71045; 80053; 81001; 82962; 84484; 85025; 93005; 96365; 99285; J0696; 81003